=== PATIENT | male | born 1970 | race Caucasian/White ===

== ENCOUNTER 2023-07-25 15:35 | Outpatient (OUT) | payer OTHER, SELFPAY ==
[2023-07-25 16:24] LABS: Prostate Specific Antigen Dx <0.13 ng/mL (<=4.00)
== END 2023-07-25 15:36 | disposition home or self-care (01) ==
LOC: LAB 15:40
PROVIDERS: PCP Internal Medicine
DX: C61 Malignant neoplasm of prostate (principal)
CPT/HCPCS: 36415; 84153

== ENCOUNTER 2024-03-30 15:16 | Outpatient (OUT) | payer OTHER, SELFPAY ==
[2024-03-30 15:40] LABS: Basophils Percent Auto 0.6 % (0.2-2.0); Eosinophils Absolute Auto 0.1 10^3/uL (0.0-0.7); Eosinophils Percent Auto 1.7 % (0.9-7.0); Hematocrit 39.8 % (42.0-54.0); Hemoglobin 13.7 g/dL (14.0-18.0); Immature Granulocytes Abs Auto 0.05 10^3/uL (0.00-0.03); Immature Granulocytes Pct Auto 0.8 % (0.0-0.5); Lymphocytes Absolute Auto 2.3 10^3/uL (1.2-3.8); Lymphocytes Percent Auto 35.1 % (20.5-60.0); Mean Corpuscular HGB Conc 34.4 g/dL (29.9-35.2); Mean Corpuscular Hemoglobin 28.4 pg (25.9-34.0); Mean Corpuscular Volume 82.4 fL (80.0-94.0); Mean Platelet Volume 9.8 fL (9.5-13.5); Monocytes Absolute Auto 0.8 10^3/uL (0.3-0.8); Monocytes Percent Auto 11.8 % (1.7-12.0); Neutrophils Absolute Auto 3.3 10^3/uL (1.4-6.5); Platelet Count 221 10^3/uL (150-450); Red Blood Count 4.83 10^6/uL (4.70-6.10); Red Cell Distribution Width 13.3 % (11.0-15.0); White Blood Count 6.5 10^3/uL (4.0-11.0)
[2024-03-30 17:38] LABS: Alanine Aminotransferase 36 U/L (16-63); Albumin Globulin Ratio 1.5; Alkaline Phosphatase 63 U/L (46-116); Anion Gap 14.9; Aspartate Amino Transferase 19 U/L (15-37); BUN Creatinine Ratio 10.8; Bilirubin Total 0.7 mg/dL (0.2-1.0); Calcium 8.7 mg/dL (8.5-10.1); Carbon Dioxide 25.1 mmol/L (21.0-32.0); Chloride 103 mmol/L (98-107); Chol HDL Ratio 4.4; Cholesterol 160 mg/dL (<=200); Estimated GFR (African America >60 (>=60); Estimated GFR (Non-African Ame >60 (>=60); Globulin 2.7 g/dL; Glucose 94 mg/dL (74-106); HDL Cholesterol 36 mg/dL (40-60); Sodium 139 mmol/L (136-145); Total Protein 6.7 g/dL (6.4-8.2); Triglycerides 92 mg/dL (<=150); VLDL CHOLESTEROL 18.4 mg/dL
== END 2024-03-30 15:17 | disposition home or self-care (01) ==
LOC: LAB 15:17
PROVIDERS: PCP Internal Medicine; Visit Provider Internal Medicine
DX: Z00.00 Encounter for general adult medical examination without abnormal findings (principal)
CPT/HCPCS: 36415; 80053; 80061; 85025

== ENCOUNTER 2024-04-06 07:01 | Outpatient (OUT) | payer OTHER, SELFPAY ==
--- OUTSIDE RECORDS SUMMARY | 2024-04-06 07:06 | XMS_ITS | CCD ---
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 Role Phone Cb Guerrero Unavailable JOSE, DR CORTÉS Admitting Unavailable BALL, DR CORTÉS Primary Care Unavailable BALL, DR CORTÉS Consulting Unavailable BALL, DR CORTÉS Attending Unavailable BLACK, DR VIOLETA Santos Attending Unavailable BALL, DR CORTÉS Primary Care Unavailable BLACK, DR VIOLETA Santos Admitting Unavailable BLACK, DR VIOLETA Santos Consulting Unavailable BLACK, DR VIOLETA Santos Consulting Unavailable BLACK, DR VIOLETA Santos Attending Unavailable BALL, DR CORTÉS Primary Care Unavailable BLACK, DR VIOLETA Santos Admitting Unavailable Unavailable Primary Care Provider UnavailBLANCA Maloney Attending Unavailable APLING, KATIE Ordoñez Attending Unavailable APLING, KATIE Ordoñez Referring Unavailable APLING, KATIE Ordoñez Attending Unavailable JAIME BURDICK Attending Unavailable APLING, KATIE Ordoñez Referring Unavailable LANCE GALICIA Attending Unavailable CB GUERRERO Primary Care Physician Violeta Loya Attending Unavailable Medications Current Medications Medication Drug Class(es) Dates Sig (Normalized) Sig (Original) ALPRAZolam 0.25 mg oral tablet (8 sources) Benzodiazepine Start: 03-24-2023 take 1 tablet by mouth every eight hours as needed for anxiety ALPRAZolam (Xanax) 0.25 MG tablet Take 0.25 mg by mouth every 8 (eight) hours if needed for anxiety 0 08/16/2023 Active take 1 tablet by jaquelin th every twelve hours ALPRAZolam 0.25 MG 1 tablet Orally Twice a day Active amLODIPine 5 mg oral tablet (3 sources) Dihydropyridine Calcium Channel Debora Start: 11-19-2023 take 1 tablet by mouth once daily amLODIPine (Norvasc) 5 MG tablet TAKE 1 TABLET BY MOUTH EVERY DAY FOR 30 DAYS 0 11/19/2023 Active Start: 10-23-2023 take 1 tablet by jaquelin th every twenty-four hours amLODIPine Besylate 5 MG 1 tablet Orally Once a day for 30 days Sep, Active cyclobenzaprine hydrochloride 5 mg oral tablet (1 source) Muscle Relaxant Start: 03-05-2024 take 1 tablet by mouth at bedtime cyclobenzaprine 5 mg Tab 5 mg = 1 tab(s), Oral, Bedtime, # 10 tab(s), Refills(s) 0, Pharmacy: [facility]/pharmacy #[id number], 172, cm, 03/05/24 9:18:00 EDT, Height/Length Dosing, 104.5, kg, 03/05/24 9:18:00 EDT, Weight Dosing Start Date: 03/05/24 Status: Ordered Misc Medication (1 source) Start: 07-14-2019 Misc Medication See Instructions Start Date: 07/14/19 Status: Ordered phentermine hydrochloride 37.5 mg oral tablet (4 sources) Sympathomimetic Amine Anorectic Start: 10-23-2023 take 1 tablet by mouth once daily before breakfast Adipex-P 37.5 MG 1 tablet before breakfast Orally Once a day for 30 days Rx #2 Sep, Active Start: 09-25-2023 take 1 tablet by jaquelin once daily before breakfast Adipex-P 37.5 MG 1 tablet before breakfast Orally Once a day for 30 days Rx #2 Aug, Active Start: 08-26-2023 take 1 tablet by jaquelin th once daily before breakfast Adipex-P 37.5 MG 1 tablet before breakfast Orally Once a day for 30 days Jul, Active Start: 04-16-2023 take 1 tablet by jaquelin once daily before breakfast Adipex-P 37.5 MG 1 tablet before breakfast Orally Once a day for 30 days Mar, Active predniSONE 20 mg oral tablet (1 source) Start: 03-05-2024 End: 03-10-2024 take 2 tablets by mouth once daily predniSONE 20 mg Tab 40 mg = 2 tab(s), Oral, Daily, X 5 day(s), # 10 tab(s), Refills(s) 0, Pharmacy: [facility]/pharmacy #[id number], 172, cm, 03/05/24 9:18:00 EDT, Height/Length Dosing, 104.5, kg, 03/05/24 9:18:00 EDT, Weight Dosing Start Date: 03/05/24 Stop Date: 03/10/24 Status: Ordered rosuvastatin calcium 20 mg oral tablet (9 sources) HMG-CoA Reductase Inhibitor Start: 03-05-2024 rosuvastatin 20 mg Tab Refills(s) 0 Start Date: 03/05/24 Status: Ordered rosuvastatin (Cr estor) 5 MG tablet Rosuvastatin Calcium 0 Active take 1 tablet by jaquelin th once daily in the evening Rosuvastatin Calcium 20 MG TAKE 1 TABLET BY MOUTH EVERY DAY IN THE EVENING Active sildenafil 100 mg oral tablet (6 sources) Phosphodiesterase 5 Inhibitor Start: 11-20-2022 take 1 tablet by mouth once daily as needed Sildenafil Citrate 100 MG 1 Tablet Orally Once a day, as needed for ED for 30 day(s) Oct, Active Completed/Discontinued Medications Medication Drug Class(es) Dates Sig (Normalized) Sig (Original) citric acid 75 mg/ml / magnesium oxide 21.9 mg/ml / picosulfate sodium 0.0625 mg/ml oral solution (1 source) Calculi Dissolution Agent, Anti-coagulant Start: 02-19-2019 Clenpiq 10-3.5-12 MG-GM -GM/160ML 160ml at 3pm, 160ml at 9pm the day prior to colonoscopy Orally BID for 1 days Jan, Not-Taking Problems Problem Classification Problem Date Documented Date Episodic/Chronic Administrative/social admission (2 sources) Counseling procedure with explicit context; Translations: [Dietary counseling and surveillance] Onset: 03-05-2024 Episodic Allergic reactions (2 sources) Atopic dermatitis; Translations: [Atopic dermatitis, unspecified] 12-11-2023 Chronic Anxiety disorders (8 sources) Generalized anxiety disorder; Translations: [Generalized anxiety disorder] Chronic Cancer of prostate (10 sources) Malignant neoplasm of prostate; Translations: [Malignant tumor of prostate] Onset: 01-11-2023 Chronic Disorders of lipid metabolism (8 sources) Hypercholesterolemia ; Translations: [Pure hypercholesterolemia , unspecified] Chronic Essential hypertension (4 sources) Essential hypertension; Translations: [Essential (primary) hypertension] Chronic Genitourinary symptoms and ill-defined conditions (1 source) Increased frequency of urination 08-20-2019 Episodic Hyperplasia of prostate (1 source) Benign prostatic hypertrophy with outflow obstruction 08-20-2019 Chronic Mycoses (12 sources) Tinea corporis; Translations: [Tinea corporis] Episodic Neoplasms of unspecified nature or uncertain behavior (2 sources) Neoplastic disease; Translations: [Neoplasm of unspecified behavior of bone, soft tissue, and skin] 12-11-2023 Episodic Other aftercare (5 sources) Other alf (current) drug therapy Episodic Other and unspecified benign neoplasm (6 sources) History of polyp of colon; Translations: [Personal history of colonic polyps] Episodic Other and unspecified benign neoplasm (10 sources) Benign neoplasm of colon; Translations: [Benign neoplasm of colon, unspecified] Episodic Other and unspecified benign neoplasm (1 source) Benign neoplasm of descending colon; Translations: [Adenomatous polyp of descending colon] Episodic Other and unspecified benign neoplasm (1 source) Benign neoplasm of colon, unspecified; Translations: [Adenoma of colon] Episodic Other and unspecified benign neoplasm (2 sources) Melanocytic nevus of trunk; Translations: [Melanocytic nevi of trunk] 12-11-2023 Episodic Other and unspecified benign neoplasm (2 sources) Skin lesion; Translations: [Hemangioma of skin and subcutaneous tissue] 12-11-2023 Episodic Other circulatory disease (1 source) Elevated blood-pressure reading, without diagnosis of hypertension Episodic Other male genital disorders (6 sources) Erectile dysfunction co-occurrent and due to arterial insufficiency; Translations: [Erectile dysfunction due to arterial insufficiency] Chronic Other male genital disorders (1 source) Erectile dysfunction due to arterial insufficiency Chronic Other nutritional; endocrine; and metabolic disorders (13 sources) Body mass index 30+ - obesity; Translations: [Body mass index (BMI) 33.0-33.9, adult] Chronic Other nutritional; endocrine; and metabolic disorders (9 sources) Obesity caused by energy imbalance; Translations: [Other obesity due to excess calories] Onset: 09-06-2016 Chronic Other nutritional; endocrine; and metabolic disorders (5 sources) Severe obesity; Translations: [Morbid (severe) obesity due to excess calories] Chronic Other nutritional; endocrine; and metabolic disorders (5 sources) Other obesity due to excess calories Chronic Other nutritional; endocrine; and metabolic disorders (2 sources) Body mass index (BMI) 33.0-33.9, adult Chronic Other nutritional; endocrine; and metabolic disorders (3 sources) Body mass index (BMI) 34.0-34.9, adult Chronic Other nutritional; endocrine; and metabolic disorders (1 source) Obese class II; Translations: [Body mass index (BMI) 35.0-35.9, adult] Onset: 03-05-2024 Chronic Other nutritional; endocrine; and metabolic disorders (1 source) Obesity; Translations: [Other obesity due to excess calories] Onset: 03-05-2024 Chronic Other screening for suspected conditions (not mental disorders or infectious disease) (1 source) Raised prostate specific antigen 08-20-2019 Episodic Other skin disorders (1 source) Dyshidrosis [pompholyx] Episodic Other skin disorders (2 sources) Epidermoid cyst; Translations: [Epidermal cyst] 12-11-2023 Episodic Other skin disorders (2 sources) Sebaceous hyperplasia; Translations: [Other specified follicular disorders] 12-11-2023 Episodic Residual codes; unclassified (6 sources) History of radical prostatectomy; Translations: [Acquired absence of other genital organ(s)] Episodic Residual codes; unclassified (1 source) Family history of prostate cancer 08-20-2019 Episodic Sprains and strains (1 source) Neck sprain; Translations: [Sprain of joints and ligaments of unspecified parts of neck, initial encounter] Onset: 03-05-2024 Episodic Results Test Name Value Interpretation Reference Range Facility Ambulatory Visit Summaryon 0 03-05-2024 Ambulatory Visit Summary VISHAL MACHADO :1970 Visit Date:03/05/2024 Ambulatory Visit Instructions Your Diagnosis Sprain of neck BMI 35.0-35.9,adult Class 1 obesity due to excess calories in adult Diabetic nutritional counseling completed Exercise counseling Your Care Team Attending Physician - Shalini OSORIO, Violeta Horne Primary Care Physician - CB GUERRERO DO This Is Your Medications List Non-Formulary Medication (Misc Medication) cyclobenzaprine (cyclobenzaprine 5 mg Tab) predniSONE (predniSONE 20 mg Tab) rosuvastatin (rosuvastatin 20 mg Tab) Procedures Performed Transrectal biopsy of prostate using ultrasound (US) guidance (08/05/2019), Arthroscopy of knee with lateral meniscus repair. Discharge Vitals Temperature (Temporal Artery) 36.5 ?C Heart Rate (Peripheral) 93 Blood Pressure 144/102 Height 172 cm Height 68 in Weight 104.5 kg Weight 229.9 lb BMI 35.32 Medications What How Much When Why Instructions New cyclobenzaprine (cyclobenzaprine 5 mg Tab) 1 Tablets By Mouth At bedtime Sprain of neck Pickup at [facility]/pharmacy #[id number] New predniSONE (predniSONE 20 mg Tab) 2 Tablets By Mouth Every day Sprain of neck Duration: 5 Days Pickup at [facility]/pharmacy #[id number] Unchanged Non-Formulary Medication (Misc Medication) See instructions Unchanged rosuvastatin (rosuvastatin 20 mg Tab) Pharmacy Information [facility]/pharmacy #[id number]: [address] [place], [place] [id number] [phone] Allergies No Known Allergies Problems Ongoing - Any problem that you are currently receiving treatment for. BPH with urinary obstruction Elevated PSA Family history of prostate cancer Prostate cancer Urine frequency Historical - Any problem that you are no longer receiving treatment for. Anxiety Patient Survey You may receive a survey via text or e-mail asking about your office visit. Please share your experience with us by completing your survey. We appreciate your feedback and thank you for choosing us for your care. [facility] Family Medicine Office/Clini c Noteon 03-05-2024 Family Medicine Office/Clinic Note Chief Complaint neck pain HPI Staff 53 year old male presents with neck pain since saturday. Patient was playing golf and felt pain on right shoulder after a swing. Pain is radiating to neck. Limited range of motion. History of Present Illness Reviewed and agree with above documented HPI by medical supervisor. Patient is a 53-year-old male who presents today with complaint of neck pain that has been going on since Saturday. Patient states that he was golfing and he felt sudden pain in his right shoulder after swinging the golf club. He states that the pain radiates to his neck. He also states he has very limited range of motion. He denies any numbness or tingling in his arm. He said that this has happened once before. He states he has been taking ibuprofen for the pain and that last night he took 1 his 's Flexeril for the pain. States that this did help him. 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 Patient has no known allergies. Review of Systems PHQ Score Initial Depression Screen Score: 0 SCORE Physical Exam Vitals & Measurements T: 36.5 ?C(Temporal Artery) HR: 93(Peripheral) BP: 144/102 SpO2: 97% HT: 68 in HT: 172 cm WT: 104.5 kg WT: 229.9 lb BMI: 35.32 General: well-developed, well-nourished, in no acute distress Eyes: Pupils equal, round, and reactive to light. Conjunctivae and sclerae normal, and extraocular movements intact Ears: No deformity or lesion of external ear. Canals and TM appear normal bilaterally. TM?s intact, not inflamed, with normal light reflex. Hearing grossly normal to conversational speech Nose: No deformity, discharge, inflammation, or lesions Mouth: Mucous membranes moist. Normal oropharynx, and posterior pharynx without lesions or exudates. Tongue normal Neck: no adenopathy Lungs: Normal respiratory effort and clear to auscultation Cardio: regular rate and rhythm, no murmur Abdomen: Soft, non-distended, non-tender Musculoskeletal: no deformity or scoliosis noted. Normal range of motion with extremities, limited range of motion with turning of head. No erythema, edema, effusion, or ecchymosis noted Extremity: No clubbing, cyanosis, edema, or deformity, with normal ROM in both upper and lower bilateral extremities Neurologic: Grossly normal denies numbness or tingling to extremities Skin: No rashes, ulcerations, or suspicious lesions Mental Status: Alert and oriented x3. Normal speech and thought content, normal mood and affect Assessment/Plan No imaging needed at this time 1. Sprain of neck (S13.9XXA: Sprain of joints and ligaments of unspecified parts of neck, initial encounter) Patient is advised that this is probably a strain of the neck muscle due to improper golf swing. He is advised to use a heating pad for 20 minutes and then do gentle stretching. He is also advised that he should not take his 's prescription for muscle relaxers. He was provided with his home prescription for muscle relaxers which he can use at bedtime due to the sedation that is caused by Flexeril. He was also advised that he was given a short-term prescription of prednisone to help with the inflammation. He is advised to take this medication in the morning to avoid stomach upset. He was advised to use ibuprofen at least 2 hours after taking prednisone but that he can use ibuprofen during the day and again use the Flexeril at night. He is advised that if he does not show signs of relief or increasing symptoms after 3 to 5 days, he should follow-up with his PCP. Advised that if he develops numbness or tingling to the right arm he should report to ED. Patient understands and is agreeable to treatment plan. Ordered: cyclobenzaprine, 5 mg = 1 tab(s), Oral, Bedtime, # 10 tab(s), Refills(s) 0, Pharmacy: [facility]/pharmacy #[id number], 172, cm, 03/05/24 9:18:00 EDT, Height/Length Dosing, 104.5, kg, 03/05/24 9:18:00 EDT, Weight Dosing predniSONE, 40 mg = 2 tab(s), Oral, Daily, X 5 day(s), # 10 tab(s), Refills(s) 0, Pharmacy: [facility]/pharmacy #[id number], 172, cm, 03/05/24 9:18:00 EDT, Height/Length Dosing, 104.5, kg, 03/05/24 9:18:00 EDT, Weight Dosing 2. BMI 35.0-35.9,adult (Z68.35: Body mass index [BMI] 35.0-35.9, adult) The standard range for ages 18 and older is >=18.5 and < 25 kg/m2. Your BMI today was above this range, this falls in the overweight to obese category and there are medical benefits to weight loss. We can offer counselling, referral, and/or medical support in addressing this problem. Your BMI and weight management will be followed at subsequent visits. 3. Class 1 obesity due to excess calories in adult (E66.09: Other obesity due to excess calories) Same as above Diabetic nutritional counseling completed (Z71.3: Dietary counseling and surveillance) Exercise counseling (Z71.82: Exercise counseling) Portions of this record may have been created with voice recognition artificial intelligence software, specifically [employer], [employer] and or [employer] (more content not included)... [facility] Comment on above: Result Comment: Elec tronically Signed By: Shalini OSORIO, Violeta Horne\.br\Date and Time Signed: 03/05/24 09:47 EDT Patient Educationon 03-05-20 Patient Education Nutrition BMI for Adults What is BMI? Body mass index (BMI) is a number that is calculated from a person's weight and height. BMI can help estimate how much of a person's weight is composed of fat. BMI does not measure body fat directly. Rather, it is an alternative to procedures that directly measure body fat, which can be difficult and expensive. BMI can help identify people who may be at higher risk for certain medical problems. What are BMI measurements used for? BMI is used as a screening tool to identify possible weight problems. It helps determine whether a person is obese, overweight, a healthy weight, or underweight. BMI is useful for: ? Identifying a weight problem that may be related to a medical condition or may increase the risk for medical problems. ? Promoting changes, such as changes in diet and exercise, to help reach a healthy weight. BMI screening can be repeated to see if these changes are working. How is BMI calculated? BMI involves measuring your weight in relation to your height. Both height and weight are measured, and the BMI is calculated from those numbers. This can be done either in [place] or metric measurements. Note that charts and online BMI calculators are available to help you find your BMI quickly and easily without having to do these calculations yourself. To calculate your BMI in [place] measurements: 1. Measure your weight in pounds (lb). 2. Multiply the number of pounds by 703. ? For example, for a person who weighs 180 lb, multiply that number by 703, which equals 126,540. 3. Measure your height in inches. Then multiply that number by itself to get a measurement called inches squared. ? For example, for a person who is 70 inches tall, the inches squared measurement is 70 inches x 70 inches, which equals 4,900 inches squared. 4. Divide the total from step 2 (number of lb x 703) by the total from step 3 (inches squared): 126,540 ? 4,900 = 25.8. This is your BMI. To calculate your BMI in metric measurements: 1. Measure your weight in kilograms (kg). 2. Measure your height in meters (m). Then multiply that number by itself to get a measurement called meters squared. ? For example, for a person who is 1.75 m tall, the meters squared measurement is 1.75 m x 1.75 m, which is equal to 3.1 meters squared. 3. Divide the number of kilograms (your weight) by the meters squared number. In this example: 70 ? 3.1 = 22.6. This is your BMI. What do the results mean? BMI charts are used to identify whether you are underweight, normal weight, overweight, or obese. The following guidelines will be used: ? Underweight: BMI less than 18.5. ? Normal weight: BMI between 18.5 and 24.9. ? Overweight: BMI between 25 and 29.9. ? Obese: BMI of 30 or above. Keep these notes in mind: ? Weight includes both fat and muscle, so someone with a muscular build, such as an athlete, may have a BMI that is higher than 24.9. In cases like these, BMI is not an accurate measure of body fat. ? To determine if excess body fat is the cause of a BMI of 25 or higher, further assessments may need to be done by a health care provider. ? BMI is usually interpreted in the same way for men and women. Where to find more information For more information about BMI, including tools to quickly calculate your BMI, go to these websites: ? Centers for Disease Control and Prevention: www.cdc.gov ? [place] Heart Association: www.heart.org ? National Heart, Lung, and Blood [place]: www.nhlbi.nih.gov Summary ? Body mass index (BMI) is a number that is calculated from a person's weight and height. ? BMI may help estimate how much of a person's weight is composed of fat. BMI can help identify those who may be at higher risk for certain medical problems. ? BMI can be measured using [place] measurements or metric measurements. ? BMI charts are used to identify whether you are underweight, normal weight, overweight, or obese. This information is not intended to replace advice given to you by your health care provider. Make sure you discuss any questions you have with your health care provider. Document Revised: 07/06/2020 Document Reviewed: 05/13/2020 [employer] Patient Education ? 2022 [employer] Orthopedics Cervical Sprain A cervical sprain is also called a neck sprain. It is a stretch or tear in one or more ligaments in the neck. Ligaments are tissues that connect bones to each other. Neck sprains can be mild, bad, or very bad. A very bad sprain in the neck can cause the bones in the neck to be unstable. This can damage the spinal cord. It can also cause serious problems in the brain, spinal cord, and nerves (nervous system). Most neck sprains heal in 4?6 weeks. It can take more or less time depending on: ? What caused the injury. ? The amount of injury. What are the causes? Neck sprains may be caused by trauma, such as: ? An injury from an accident in a vehicle (more content not included)... [facility] Patient Letter FTon 2023 Patient Letter [facility] [place] [address] [place] [address] March 05, 2024 VISHAL MACHADO [address] [place] [address] [place] [address] : 1970 Please excuse VISHAL MACHADO from work . He was being seen at [facility]. May return to work on: 03/05/2024 Restrictions: None Comments: Please excuse due to an acute illness. Provider Signature: Violeta Loya CNP [address] [place] [address] [place] [address] [facility] MR KNEE LEFT WO IV CONTRASTo n 01-31-2024 MR KNEE LEFT WO IV CONTRAST EXAMINATION: MR KNEE LEFT WO IV CONTRAST HISTORY: left internal derangement left medial knee pain for 6 months. No recent injury. TECHNIQUE: Routine non-contrast MRI of the knee, LEFT COMPARISON: Radiographs 12/25/2023. RESULT: MENISCI: Medial Meniscus: Small area of increased signal near the junction of the posterior horn and body, without distinct extension to the articular surface. Differential includes degenerative signal versus subtle nondisplaced tear. Lateral Meniscus: Intact LIGAMENTS: ACL, PCL, MCL, and LCL complex intact. CARTILAGE: Small to moderate areas of full-thickness chondral loss involving the superior patella. No distinct full-thickness chondral loss in the medial or lateral compartments, with small areas of low-grade partial-thickness chondral loss or fissuring. TENDONS: Mild to moderate distal quadriceps tendinosis, without tear. Patellar tendon appears intact. Popliteus appears intact. BONES AND MARROW: No evidence of fracture or bone marrow replacing process. MUSCLES: Muscle bulk and signal intensity are normal. JOINT FLUID AND SYNOVIUM: Small joint effusion. No synovitis. No Dumont's cyst. OTHER: No other significant abnormality. IMPRESSION: Possible medial meniscal tear versus degenerative signal. Osteoarthritis, especially of the patella. ELECTRONICALLY SIGNED BY: Ramez Cabrera MD Normal Not Available No Panel Informationon 12-11 Type of biopsy: tangential Informed consent: discussed and consent obtained Informed consent comment: The risks and benefits of the biopsy were discussed. Risks include but are not limited to bleeding, infection, scarring, pain, and nerve damage. An opportunity to ask questions prior to the procedure was permitted and all questions were answered. Patient was prepped and draped in usual sterile fashion: area cleansed with alcohol. Anesthesia: the lesion was anesthetized in a standard fashion Anesthetic: 1% lidocaine w/ epinephrine 1-100,000 buffered w/ 8.4% NaHCO3 Instrument used: DermaBlade Hemostasis achieved with: electrodesiccation Outcome: patient tolerated procedure well Outcome comment: The specimen was placed in a prelabeled formalin container to be sent for pathology Post-procedure details: sterile dressing applied and wound care instructions given Post-procedure details comment: Emphasized need to contact clinic for any signs of infection, uncontrollable bleeding, or complications. Dressing type: bandage Additional details: Photo taken yes Amount of lidocaine used: 0.5 cc [facility] CBC AUTO DIFFon 03-23-2023 BASO # 0.0 103/ul Normal 0.0-0.1 [facility] Comment on above: Performed By: #### C BC #### [facility] [address] [place] [address] Dr. Carmen Schmidt Basophils/100 WBC (Bld) 0.8 % Normal 0.2-2.0 [facility] Comment on above: Performed By: #### C BC #### [facility] [address] [place] [address] Dr. Carmen Schmidt EO # 0.1 103/ul Normal 0.0-0.7 [facility] Comment on above: Performed By: #### C BC #### [facility] [address] [place] [address] Dr. Carmen Schmidt Eosinophils/100 WBC (Bld) 2.2 % Normal 0.9-7.0 [facility] Comment on above: Performed By: #### C BC #### [facility] [address] [place] [address] Dr. Carmen Schmidt Erythrocyte distribution width (RBC) [Ratio] 13.2 % Normal 11.0-15.0 [facility] Comment on above: Performed By: #### C BC #### [facility] [address] [place] [address] Dr. Carmen Schmidt Hematocrit (Bld) [Volume fraction] 41.0 % Critically low 42.0-54.0 [facility] Comment on above: Performed By: #### C BC #### [facility] [address] [place] [address] Dr. Carmen Schmidt Hemoglobin (Bld) [Mass/Vol] 14.7 g/dL Normal 14.0-18.0 [facility] Comment on above: Performed By: #### C BC #### [facility] [address] [place] [address] Dr. Carmen Schmidt IG # 0.04 10e3/ul Critically high 0.00-0.03 [facility] Comment on above: Performed By: #### C BC #### [facility] [address] [place] [address] Dr. Carmen Schmidt IG % 0.8 % Critically high 0.0-0.[address] [facility] Comment on above: Performed By: #### C BC #### [facility] [address] [place] [address] Dr. Carmen Schmidt LYMPH # 1.9 103/ul Normal 1.2-3.8 [facility] Comment on above: Performed By: #### C BC #### [facility] [address] [place] [address] Dr. Carmen Schmidt Lymphocytes/100 WBC (Bld) 37.0 % Normal 20.5-60.0 [facility] Comment on above: Performed By: #### C BC #### [facility] [address] [place] [address] Dr. Carmen Schmidt MANUAL DIFF REQ NO Normal [facility] Comment on above: Performed By: #### C BC #### [facility] [address] [place] [address] Dr. Carmen Schmidt MCH (RBC) [Entitic mass] 30.4 pg Normal 25.9-34.0 [facility] Comment on above: Performed By: #### C BC #### [facility] [address] [place] [address] Dr. Carmen Schmidt MCHC (RBC) [Mass/Vol] 35.9 g/dL Critically high 29.9-35.2 [facility] Comment on above: Performed By: #### C BC #### [facility] [address] [place] [address] Dr. Carmen Schmidt MCV (RBC) [Entitic vol] 84.9 fL Normal 80.0-94.0 [facility] Comment on above: Performed By: #### C BC #### [facility] [address] [place] [address] Dr. Carmen Schmidt MONO # 0.6 103/ul Normal 0.3-0.8 [facility] Comment on above: Performed By: #### C BC #### [facility] [address] [place] [address] Dr. Carmen Schmidt Monocytes/100 WBC (Bld) 11.9 % Normal 1.7-12.0 [facility] Comment on above: Performed By: #### C BC #### [facility] [address] [place] [address] Dr. Carmen Schmidt NEUT # 2.4 103/ul Normal 1.4-6.5 [facility] Comment on above: Performed By: #### C BC #### [facility] [address] [place] [address] Dr. Carmen Schmidt Neutrophils/100 WBC (Bld) 47.3 % Normal 43.0-75.0 [facility] Comment on above: Performed By: #### C BC #### [facility] [address] [place] [address] Dr. Carmen Schmidt Platelet mean volume (Bld) [Entitic vol] 9.5 fL Normal 9.5-13.5 [facility] Comment on above: Performed By: #### C BC #### [facility] [address] [place] [address] Dr. Carmen Schmidt PLT 223 103/ul Normal 150-450 [facility] Comment on above: Performed By: #### C BC #### [facility] [address] [place] [address] Dr. Carmen Schmidt RBC 4.83 106/ul Normal 4.70-6.10 [facility] Comment on above: Performed By: #### C BC #### [facility] [address] [place] [address] Dr. Carmen Schmidt WBC 5.0 103/ul Normal 4.0-11.0 [facility] Comment on above: Performed By: #### C BC #### [facility] [address] [place] [address] Dr. Carmen Schmidt LIPID PROFILEon 03-23-2023 CHOL-HDL RATIO NORM SEE BELOW Normal [facility] Comment on above: Result Comment: 3.3 - 4.4 LOW RISK 4.4 - 7.1 AVERAGE RISK 7.1 - 11.0 MODERATE RISK >11.0 HIGH RISK Performed By: #### C MP, LIPID #### [facility] [address] [place] [address] Dr. Carmen Schmidt Cholesterol [Mass/Vol] 108 mg/dL Normal <=200 [facility] Comment on above: Performed By: #### C MP, LIPID #### [facility] [address] [place] [address] Dr. Carmen Schmidt Cholesterol in HDL [Mass/Vol] 35 mg/dL Critically low 40-60 [facility] Comment on above: Performed By: #### C MP, LIPID #### [facility] [address] [place] [address] Dr. Carmen Schmidt Cholesterol in LDL [Mass/Vol] 60.4 mg/dL Normal [facility] Comment on above: Performed By: #### C MP, LIPID #### [facility] [address] [place] [address] Dr. Carmen Schmidt Cholesterol.total/ Cholesterol in HDL [Mass ratio] 3.1 {ratio} Normal [facility] Comment on above: Performed By: #### C MP, LIPID #### [facility] [address] [address] [address] Carmen Schmidt HDL NORMAL > or = 60 mg/dl - LO W CARDIOVASCULAR RISK <40 mg/dl - HIGH CARDIOVASCULAR RISK Normal [facility] Comment on above: Performed By: #### C MP, LIPID #### [facility] [address] [address] [address] Carmen Schmidt LDL CALC NORMAL SEE BELOW Normal [facility] Comment on above: Result Comment: <100 mg/dl OPTIMAL 100 - 129 mg/dl NEAR OR ABOVE OPTIMAL 130 - 159 mg/dl BORDERLINE HIGH 160 - 189 mg/dl HIGH >190 mg/dl VERY HIGH Performed By: #### C MP, LIPID #### [facility] [address] [address] [address] Carmen Schmidt Triglyceride [Mass/Vol] 63 mg/dL Normal <=150 [facility] Comment on above: Performed By: #### C MP, LIPID #### [facility] [address] [address] [address] Carmen Schmidt VLDL CALC 12.6 mg/dL Normal [facility] Comment on above: Performed By: #### C MP, LIPID #### [facility] [address] [address] [address] Carmen Schmidt PROF 14(COMP METB)on 023 Albumin [Mass/Vol] 4.3 g/dL Normal 3.4-5.0 [facility] Comment on above: Performed By: #### C MP, LIPID #### [facility] [address] [address] [address] Carmen Schmidt Albumin/Globulin [Mass ratio] 1.5 {ratio} Normal [facility] Comment on above: Performed By: #### C MP, LIPID #### [facility] [address] [address] [address] Carmen Schmidt ALP [Catalytic activity/Vol] 69 U/L Normal 46-116 [facility] Comment on above: Performed By: #### C MP, LIPID #### [facility] [address] [address] [address] Carmen Schmidt ALT [Catalytic activity/Vol] 31 U/L Normal 16-63 [facility] Comment on above: Performed By: #### C MP, LIPID #### [facility] [address] [address] [address] Carmen Schmidt Anion gap [Moles/Vol] 15.7 mmol/L Normal [facility] Comment on above: Performed By: #### C MP, LIPID #### [facility] [address] [address] [address] Carmen Schmidt AST [Catalytic activity/Vol] 17 U/L Normal 15-37 [facility] Comment on above: Performed By: #### C MP, LIPID #### [facility] [address] [place] [address] Dr. Carmen Schmidt Bilirubin [Mass/Vol] 0.6 mg/dL Normal 0.2-1.0 [facility] Comment on above: Performed By: #### C MP, LIPID #### [facility] [address] [address] [address] Carmen Schmidt Calcium [Mass/Vol] 8.9 mg/dL Normal 8.5-10.1 [facility] Comment on above: Performed By: #### C MP, LIPID #### [facility] [address] [address] [address] Carmen Schmidt Chloride [Moles/Vol] 106 mmol/L Normal 98-107 [facility] Comment on above: Performed By: #### C MP, LIPID #### [facility] [address] [address] [address] Carmen Schmidt CO2 [Moles/Vol] 26.2 mmol/L Normal 21.0-32.0 [facility] Comment on above: Performed By: #### C MP, LIPID #### [facility] [address] [address] [address] Carmen Schmidt Creatinine [Mass/Vol] 0.70 mg/dL Normal 0.70-1.30 [facility] Comment on above: Performed By: #### C MP, LIPID #### [facility] [address] [address] [address] Carmen Schmidt EGFR-AF SPANISH >60 Normal >=60 [facility] Comment on above: Performed By: #### C MP, LIPID #### [facility] [address] [address] [address] Carmen Schmidt EGFR-NON AF SPANISH >60 Normal >=60 [facility] Comment on above: Performed By: #### C MP, LIPID #### [facility] [address] [address] [address] Carmen Schmidt Globulin (S) [Mass/Vol] 2.9 g/dL Normal [facility] Comment on above: Performed By: #### C MP, LIPID #### [facility] [address] [address] [address] Carmen Schmidt Glucose [Mass/Vol] 103 mg/dL Normal 74-106 [facility] Comment on above: Performed By: #### C MP, LIPID #### [facility] [address] [address] [address] Carmen Schmidt Potassium [Moles/Vol] 4.9 mmol/L Normal 3.5-5.1 [facility] Comment on above: Performed By: #### C MP, LIPID #### [facility] [address] [address] [address] Carmen Schmidt Protein [Mass/Vol] 7.2 g/dL Normal 6.4-8.2 [facility] Comment on above: Performed By: #### C MP, LIPID #### [facility] [address] [address] [address] Carmen Schmidt Sodium [Moles/Vol] 143 mmol/L Normal 136-145 [facility] Comment on above: Performed By: #### C MP, LIPID #### [facility] [address] [address] [address] Carmen Schmidt Urea nitrogen [Mass/Vol] 9.0 mg/dL Normal 7.0-18.0 [facility] Comment on above: Performed By: #### C MP, LIPID #### [facility] [address] [place], [place] [address] Dr. Carmen Schmidt Urea nitrogen/Creatinin e [Mass ratio] 12.9 mg/mg Normal [facility] Comment on above: Performed By: #### C MP, LIPID #### [facility] [address] [place], [place] [address] Dr. Carmen Singh 05-03-2022 L --- Specimen: [id number] Received: 05/03/22 Status: ANA M Claire Num: [id number] Spec Type: Surgical Subm Dr: Francisco Coleman MD Tissues: A Colon - Polyp (ASCENDING POLYP) B Colon Biopsy (SIGMOID) C Colon - Polyp (SIGMOID POLYP) Procedures: HE Stain/6, Gross/Micro L4/3 Patient Age/Sex Location Account Attending Physician Vishal Machado/Martha [id number] Francisco Coleman MD SPEC NUM: [id number] RECD: 05/03/22 STATUS: ANA M HOLDERTara NUM: [id number] SUDHAKAR: 05/03/22- [facility] DR: Francisco Coleman MD ENTERED: 05/03/22 [facility] DR: SPEC TYPE: Surgical DEPT: S ORDERED: HE Stain/6, Gross/Micro L4/3 ORDERED: HE Stain/6, Gross/Micro L4/3 Pathological Diagnosis A. Ascending colon polyp, polypectomy: - Fragments of tubular adenoma. B. Sigmoid colon, patchy light is, biopsy: - Mild active colitis with lymphoid aggregate. C. Sigmoid colon polyp, polypectomy: Tubular adenoma. Clinical Information History of polyps Gross Description A. Received in formalin labeled with the patient's name, number and polyp ascending are multiple fragments of soft tissue and fecal material measuring 2.3 x 0.6 x 0.3 cm in aggregate. Entirely submitted in one cassette labeled A1. (LG/) B. Received in formalin labeled with the patient's name, number and patchy colitis sigmoid are two fragments of soft tissue 0.4 cm each. Entirely submitted in one cassette labeled B1. (LG/) C. Received in formalin labeled with the patient's name, number and polyp sigmoid are two Specimen: [id number] Received: 05/03/22 Status: ANA M Holdertara Num: [id number] Spec Type: Surgical Subm Dr: Francisco Coleman MD Tissues: A Colon - Polyp (ASCENDING POLYP) B Colon Biopsy (SIGMOID) C Colon - Polyp (SIGMOID POLYP) Procedures: HE Stain/6, Gross/Micro L4/3 Patient: Vishal Machado Umu [id number] (Continued) Specimen: [id number] Received: 05/03/22 (Continued) Gross Description (Continued) Signed (signature on file) Lois Chong MD 05/04/22 1534 Specimen: [id number] Received: 05/03/22 Status: ANA M Rangel Num: [id number] Spec Type: Surgical Subm Dr: Francisco Coleman MD Tissues: A Colon - Polyp (ASCENDING POLYP) B Colon Biopsy (SIGMOID) C Colon - Polyp (SIGMOID POLYP) Procedures: HE Stain/6, Gross/Micro L4/3 Patient: Vishal Machado [id number] (Continued) Specimen: [id number] Received: 05/03/22 (Continued) Gross Description (Continued) fragments of soft tissue measuring 0.5 and 0.9 cm. Entirely submitted in one cassette labeled C1. (LG/) Microscopic Description A. Two glass slides with H E stained material have been examined. The microscopic findings support the above pathologic diagnosis. B. Two glass slides with H E stained material have been examined. The microscopic findings support the above pathologic diagnosis. C. Two glass slides with H E stained material have been examined. The microscopic findings support the above pathologic diagnosis. CPT Codes 72044?3 Specimen: [id number] Received: 05/03/22 Status: ANA M Rangel Num: [id number] Spec Type: Surgical Subm Dr: Francisco Coleman MD Tissues: A Colon - Polyp (ASCENDING POLYP) B Colon Biopsy (SIGMOID) C Colon - Polyp (SIGMOID POLYP) Procedures: HE Stain/6, Gross/Micro L4/3 Patient: Vishal Machado Umu [id number] (Continued) Signed (signature on file) Lois Chong MD 05/04/22 1534 [place] COVID-19 Antigenon 2 COVID-19 Antigen Healthcare Worker?: N Reference Range: Negative Negative results, from patients with symptom onset beyond five days, should be treated as presumptive and confirmation with a molecular assay, if necessary, for patient management, may be performed. Negative results do not rule out COVID-19 and should not be used as the sole basis for treatment or patient management decisions, including infection control decisions. Negative results should be considered in the context of a patient's recent exposures, history and the presence of clinical signs and symptoms consistent with COVID-19. The Minal SARS Antigen CINDA does not differentiate between SARS-CoV and SARS-CoV-2. This test was developed and its performance characteristic determined by [facility] and validated at [facility]. This test has not been FDA cleared or approved. This test has been authorized by FDA under an Emergency Use Authorization (EUA). This test has been validated in accordance with the FDA's Guidance Document (Policy for Diagnostics Testing in Laboratories Certified to Perform High Complexity Testing under CLIA prior to Emergency Use Authorization for Coronavirus Disease-2019 during the Public Health Emergency) issued on January 28, 2020. This test is only authorized for the duration of time the declaration that circumstances exist justifying the authorization of the emergency use of in vitro diagnostic tests for detection of SARS-CoV-2 virus and/or diagnosis of COVID-19 infection under section 564(b)(1) of the Act, 21 U.S.C. 360bbb-3(b)(1), unless the authorization is terminated or revoked sooner. SARS-CoV+SARS-CoV-2 (COVID-19) Ag [Presence] in Respiratory specimen by Rapid immunoassay Negative for SARS Antigen by CINDA PERFORMED BY: [place] [address] PATHOLOGIST DISHTANK OPERATOR LAKHWINDER REYES M.D. [place] Comment on above: Performed By: #### S RADHA COVID-19 MINAL #### [facility] [address] [place] [address] Minal Ag Negativeon 05-01-20 Minal Ag Negative Negative Normal Negative [facility] Comment on above: Result Comment: This is a duplicate Minal SARS Antigen (CINDA) result to be used for statistical tracking purpose only. PERFORMED BY: [place] [address] PATHOLOGIST DISHTANK OPERATOR LAKHWINDER REYES M.D. Performed By: #### S RADHA COVID-19 MINAL #### [facility] [address] [place] [address] Vital Signs Date Time Vital Sign Value Performing Clinician Facility 03-05-2024 09:15-0400 Blood Pressure Location [facility] 03-05-2024 09:15-0400 Body temperature 97.7 [degF] [facility] 03-05-2024 09:15-0400 Diastolic blood pressure 102 mm[Hg] [facility] 03-05-2024 09:15-0400 Heart rate 93 /min Violeta Lyoa [facility] [place] [facility] 03-05-2024 09:15-0400 SaO2% (BldA) [Mass fraction] 97 % [facility] 03-05-2024 09:15-0400 Systolic blood pressure 144 mm[Hg] [facility] 12-02-2023 14:30-0500 Body height 172.72 cm Cb Ball Other [facility] [employer] Other 12-02-2023 14:30-0500 Body mass index (BMI) [Ratio] 34.15 kg/m2 Cb [facility] Other [facility] [employer] Other 12-02-2023 14:30-0500 Body weight 101.88 kg Cb Ball Other [facility] [employer] Other 12-02-2023 14:30-0500 Diastolic blood pressure 78 mm[Hg] Cb Ball Other [employer] Other 12-02-2023 14:30-0500 Respiratory rate 12 /min Cb Ball Other [employer] Other 12-02-2023 14:30-0500 Systolic blood pressure 136 mm[Hg] Cb Ball Other [employer] Other 10-23-2023 15:00-0500 Body height 172.72 cm Cb Ball Other [employer] Other 10-23-2023 15:00-0500 Body mass index (BMI) [Ratio] 34.88 kg/m2 Cb Ball Other [employer] Other 10-23-2023 15:00-0500 Body weight 104.06 kg Cb Ball Other [employer] Other 10-23-2023 15:00-0500 Diastolic blood pressure 92 mm[Hg] Cb Ball Other [employer] Other 10-23-2023 15:00-0500 Respiratory rate 12 /min Cb Ball Other [employer] Other 10-23-2023 15:00-0500 Systolic blood pressure 152 mm[Hg] Cb Ball Other [employer] Other 09-25-2023 15:30-0500 Body height 172.72 cm Cb Ball Other [employer] Other 09-25-2023 15:30-0500 Body mass index (BMI) [Ratio] 34.3 kg/m2 Cb Ball Other [employer] Other 09-25-2023 15:30-0500 Body weight 102.33 kg Cb Ball Other [employer] Other 09-25-2023 15:30-0500 Diastolic blood pressure 91 mm[Hg] Cb Ball Other [employer] Other 09-25-2023 15:30-0500 Respiratory rate 12 /min Cb Ball Other [employer] Other 09-25-2023 15:30-0500 Systolic blood pressure 142 mm[Hg] Cb Ball Other [employer] Other 08-26-2023 14:30-0400 Body height 172.72 cm Cb Ball Other [employer] Other 08-26-2023 14:30-0400 Body mass index (BMI) [Ratio] 35.55 kg/m2 Cb Ball Other [employer] Other 08-26-2023 14:30-0400 Body weight 106.05 kg Cb Ball Other [employer] Other 08-26-2023 14:30-0400 Diastolic blood pressure 86 mm[Hg] Cb Ball Other [employer] Other 08-26-2023 14:30-0400 Respiratory rate 12 /min Cb Ball Other [employer] Other 08-26-2023 14:30-0400 Systolic blood pressure 138 mm[Hg] Cb Ball Other [employer] Other 04-16-2023 14:15-0400 Body height 172.72 cm Cb Ball Other [employer] Other 04-16-2023 14:15-0400 Body mass index (BMI) [Ratio] 33.63 kg/m2 Cb Ball Other [employer] Other 04-16-2023 14:15-0400 Body weight 100.34 kg Cb Ball Other [employer] Other 04-16-2023 14:15-0400 Diastolic blood pressure 82 mm[Hg] Cb Ball Other [employer] Other 04-16-2023 14:15-0400 Respiratory rate 12 /min Cb Ball Other [employer] Other 04-16-2023 14:15-0400 Systolic blood pressure 132 mm[Hg] Cb Ball Other [employer] Other 11-20-2022 15:00-0500 Body height 172.72 cm Cb Ball Other [employer] Other 11-20-2022 15:00-0500 Body mass index (BMI) [Ratio] 37.43 kg/m2 Cb Ball Other [employer] Other 11-20-2022 15:00-0500 Body weight 111.68 kg Cb Ball Other [employer] Other 11-20-2022 15:00-0500 Diastolic blood pressure 82 mm[Hg] Cb Ball Other [employer] Other 11-20-2022 15:00-0500 Respiratory rate 12 /min Cb Ball Other [employer] Other 11-20-2022 15:00-0500 Systolic blood pressure 132 mm[Hg] Cb Ball Other [employer] Other Encounters Encounter Date Encounter Type Care Provider Facility Start: 03-05-2024 End: 03-06-2024 ambulatory Violeta Loya Facility:[facility] Start: 03-05-2024 End: 03-05-2024 Patient encounter procedure Violeta Loya [facility] Start: 02-11-2024 End: 02-11-2024 ambulatory LANCE GALICIA Not Available Start: 01-31-2024 End: 02-01-2024 ambulatory KATIE B APLING Not Available Start: 01-29-2024 End: 01-29-2024 ambulatory JAIME BURDICK Not Available Start: 01-22-2024 End: 01-22-2024 ambulatory KATIE B APLING Not Available Start: 12-25-2023 End: 12-26-2023 ambulatory KATIE B APLING Not Available Start: 12-11-2023 End: 12-11-2023 ambulatory BLANCA A FELTER Not Available Start: 12-11-2023 End: 12-11-2023 Office outpatient visit 15 minutes Blancaniko Mijareser CONSTRUCTION FRAMER-COMPUTED TOMOGRAPHY TECHNICIAN Work Phone: [facility] Comment on above: Atopic dermatitis, u nspecified type; Epidermal inclusion cyst; Neoplasm of unspecified behavior of bone, soft tissue, and skin; Sebaceous hyperplasia of face; Melanocytic nevus of trunk; Angioma of skin Start: 12-11-2023 [employer] Blanca diaz CONSTRUCTION FRAMER-COMPUTED TOMOGRAPHY TECHNICIAN Work Phone: [facility] Start: 12-11-2023 BamJack Erwino [employer] Blanca diaz CONSTRUCTION FRAMER-COMPUTED TOMOGRAPHY TECHNICIAN Work Phone: [facility] Start: 12-02-2023 End: 12-02-2023 ambulatory Cb Guerrero Other [employer] Other Start: 12-02-2023 Office outpatient vi sit 15 minutes Cb Guerrero [facility] Start: 10-23-2023 End: 10-23-2023 ambulatory Cb Guerrero Other [employer] Other Start: 10-23-2023 Office outpatient vi sit 15 minutes Cb Guerrero [facility] Start: 09-25-2023 End: 09-25-2023 ambulatory Cb Guerrero Other [employer] Other Start: 09-25-2023 Office outpatient vi sit 15 minutes Cb Guerrero [facility] Start: 08-26-2023 End: 08-26-2023 ambulatory Cb Guerrero Other [employer] Other Start: 08-26-2023 Office outpatient vi sit 15 minutes Cb Guerrero [facility] Start: 04-16-2023 End: 04-16-2023 ambulatory Cb Guerrero Other [employer] Other Start: 04-16-2023 Office outpatient vi sit 15 minutes Cb Guerrero [facility] Start: 03-25-2023 Encounter for genera l adult medical examination without abnormal findings DR CB GUERRERO [facility] Start: 03-23-2023 End: 03-24-[address] CB GUERRERO Facility:[facility]1 Start: 03-23-2023 End: 03-24-2023 Encounter for general adult medical examination without abnormal findings DR CB GUERRERO Facility:[facility] Start: 01-11-2023 End: 01-12-[address] VIOLETA BLACK Facility:[facility] Start: 11-20-2022 End: 11-20-2022 ambulatory Cb Guerrero Other [employer] Other Start: 11-20-2022 Office outpatient vi sit 15 minutes Cb Guerrero [facility] Start: 07-13-2022 End: 07-14-[address] VIOLETA BLACK Facility:[facility]1 Procedures Date Procedure Procedure Detail Performing Clinician Start: 12-11-2023 SKIN / NAIL BIOPSY Christie Sánchez CONSTRUCTION FRAMER-COMPUTED TOMOGRAPHY TECHNICIAN Work Phone: Start: 01-11-[address] KELLEN GUERRERO Comment on above: Performed By: #### P SAD #### [facility] [address] [place] [address] Dr. Carmen Schmidt Start: 07-13-[address] KELLEN GUERRERO Comment on above: Performed By: #### P SAD #### [facility] [address] [place] [address] Dr. Carmen Schmidt Start: 08-05-2019 Transrectal biopsy o f prostate using ultrasound guidance Violeta Loya Arthroscopy of knee with lateral meniscus repair Violeta Loya Comment on above: Right Plan of Treatment Date Care Activity Detail Author Start: 12-10-2024 End: 12-10-2024 Patient encounter procedure 12/10/2024 3:35 PM EST Office Visit [facility] [address] [place] [address] Blanca Sánchez CONSTRUCTION FRAMER-COMPUTED TOMOGRAPHY TECHNICIAN [address] [place] [address] [facility] Start: 12-11-2023 End: 12-11-2023 Patient encounter procedure 12/11/2023 3:40 PM EST Office Visit [facility] [address] [place] [id number] Blanca Sánchez, CONSTRUCTION FRAMER-COMPUTED TOMOGRAPHY TECHNICIAN [address] [place] [address] Arrived [facility] Comment on above: Arrived Start: 06-28-2023 Influenza vaccination Influenza Vaccine (#1) [facility] Start: 1970 Screening for malignant neoplasm of colon [facility] Dermatopathology exam Dermatopat hology exam Pathology and Cytology Timed Neoplasm of unspecified behavior of bone, soft tissue, and skin Release Upon Ordering for 1 Occurrences starting 12/11/2023 [facility] Work Phone: Comment on above: Release Upon Ordering for 1 Occurrences starting 12/11/2023 Immunizations Immunization Date Immunization Notes [facility]23 zoster vaccine recombinant Cb Guerrero Other [facility] 09-11-2022 zoster vaccine recombinant Cb Guerrero Other [facility] 09-11-2022 zoster vaccine, live Benjami janene Guerrero Other [facility] [employer] Other 07-12-2022 COVID-19 Vaccine Pfi zer - Documentation Purposes Only Cb Guerrero Other [facility] [employer] Other 07-12-2022 influenza virus vaccine, split virus (incl. purified surface antigen) Cb Guerrero Other [facility] [employer] Other 10-09-2021 COVID-19 Vaccine Pfi zer - Documentation Purposes Only Cb Guerrero Other [facility] 08-02-2021 influenza virus vaccine, split virus (incl. purified surface antigen) Cb Guerrero Other [facility] [employer] Other 02-07-2021 COVID-19 Vaccine Pfi zer - Documentation Purposes Only Cb Guerrero Other [facility] 01-16-2021 COVID-19 Vaccine Pfi zer - Documentation Purposes Only Cb Guerrero Other [facility] 09-13-2020 influenza virus vaccine, split virus (incl. purified surface antigen) Cb Guerrero Other [employer] Other 09-13-2020 influenza virus vaccine, unspecified formulation Blanca Sánchez CONSTRUCTION FRAMER-COMPUTED TOMOGRAPHY TECHNICIAN Work Phone: [facility] Payers Date Payer Category Payer Managed Care HMO (unspecified) AET[employer] AETNA [id number] 2023-Present [address] [place] [address] HMO [id number] 2023 Private Health Insurance [id number] 1970 Unknown [id number] .59 1970 Unknown [id number] .593 1968 Unknown [id number] [id number] .59 1968 Unknown [id number] [id number] .1258 1968 Unknown [id number] [id number] .1258 1968 Unknown [id number] [id number] .125 1968 Unknown [id number] [id number] .1258 1968 Unknown [id number] [id number] .1259 1968 Unknown [id number] [id number] .1258 1968 Unknown [id number] [id number] .1259 1970 Unknown [id number] [id number] .727 1961 Private Health Insurance [id number] Private Health Insurance [id number] Social History Date Type Detail Facility Start: 12-11-2023 Sex Assigned At [facility] Start: 11-18-2023 End: 03-05-2024 Tobacco smoking status NHIS Never smoked tobacco [facility] Start: 1970 Sex Assigned At Male [facility] Start: 03-23-2023 Gender identity Identifies as male gender (finding) [facility] Start: 03-23-2023 Sexual orientation Heterosexual (finding) [facility] Start: 12-11-2023 History of Social function [facility] Tobacco smoking status Never [facility] Functional Status Date Assessment Result Facility 03-05-2024 Functional Status N/A [facility] Clinical Notes 11-20-2022 to 03-05-2024 Blanca Sánchez, CONSTRUCTION FRAMER-COMPUTED TOMOGRAPHY TECHNICIAN - 12/11/2023 3:40 PM EST Note Date & Type Note Facility 03-05-2024 Hospital Discharge instructions Patient Education 03/05/2024 09:47:27 BMI for Adults BMI for Adults What is BMI? Body mass index (BMI) is a number that is calculated from a person's weight and height. BMI can help estimate how much of a person's weight is composed of fat. BMI does not measure body fat directly. Rather, it is an alternative to procedures that directly measure body fat, which can be difficult and expensive. BMI can help identify people who may be at higher risk for certain medical problems. What are BMI measurements used for? BMI is used as a screening tool to identify possible weight problems. It helps determine whether a person is obese, overweight, a healthy weight, or underweight. BMI is useful for: Identifying a weight problem that may be related to a medical condition or may increase the risk for medical problems. Promoting changes, such as changes in diet and exercise, to help reach a healthy weight. BMI screening can be repeated to see if these changes are working. How is BMI calculated? BMI involves measuring your weight in relation to your height. Both height and weight are measured, and the BMI is calculated from those numbers. This can be done either in [place] ([place] or metric measurements. Note that charts and online BMI calculators are available to help you find your BMI quickly and easily without having to do these calculations yourself. To calculate your BMI in [place] ([place] measurements: 1.Measure your weight in pounds (lb). 2.Multiply the number of pounds by 703. For example, for a person who weighs 180 lb, multiply that number by 703, which equals 126,540. 3.Measure your height in inches. Then multiply that number by itself to get a measurement called inches squared. For example, for a person who is 70 inches tall, the inches squared measurement is 70 inches x 70 inches, which equals 4,900 inches squared. 4.Divide the total from step 2 (number of lb x 703) by the total from step 3 (inches squared): 126,540 4,900 = 25.8. This is your BMI. To calculate your BMI in metric measurements: 1.Measure your weight in kilograms (kg). 2.Measure your height in meters (m). Then multiply that number by itself to get a measurement called meters squared. For example, for a person who is 1.75 m tall, the meters squared measurement is 1.75 m x 1.75 m, which is equal to 3.1 meters squared. 3.Divide the number of kilograms (your weight) by the meters squared number. In this example: 70 3.1 = 22.6. This is your BMI. What do the results mean? BMI charts are used to identify whether you are underweight, normal weight, overweight, or obese. The following guidelines will be used: Underweight: BMI less than 18.5. Normal weight: BMI between 18.5 and 24.9. Overweight: BMI between 25 and 29.9. Obese: BMI of 30 or above. Keep these notes in mind: Weight includes both fat and muscle, so someone with a muscular build, such as an athlete, may have a BMI that is higher than 24.9. In cases like these, BMI is not an accurate measure of body fat. To determine if excess body fat is the cause of a BMI of 25 or higher, further assessments may need to be done by a health care provider. BMI is usually interpreted in the same way for men and women. Where to find more information For more information about BMI, including tools to quickly calculate your BMI, go to these websites: Centers for Disease Control and Prevention: www.cdc.gov [place] Heart Association: www.heart.org National Heart, Lung, and Blood [place]: www.nhlbi.nih.gov Summary Body mass index (BMI) is a number that is calculated from a person's weight and height. BMI may help estimate how much of a person's weight is composed of fat. BMI can help identify those who may be at higher risk for certain medical problems. BMI can be measured using [place] measurements or metric measurements. BMI charts are used to identify whether you are underweight, normal weight, overweight, or obese. This information is not intended to replace advice given to you by your health care provider. Make sure you discuss any questions you have with your health care provider. Document Revised: 07/06/2020 Document Reviewed: 05/13/2020 [employer] Patient Education 2022 [employer] 03/05/2024 09:47:24 Cervical Sprain, Orqq-qf-Dhnb Cervical Sprain A cervical sprain is also called a neck sprain. It is a stretch or tear in one or more ligaments in the neck. Ligaments are tissues that connect bones to each other. Neck sprains can be mild, bad, or very bad. A very bad sprain in the neck can cause the bones in the neck to be unstable. This can damage the spinal cord. It can also cause serious problems in the brain, spinal cord, and nerves (nervous system). Most neck sprains heal in 4 6 weeks. It can take more or less time depending on: What caused the injury. The amount of injury. What are the causes? Neck sprains may be caused by trauma, such as: An injury from an accident in a vehicle such as a car or boat. A fall. The head and neck being moved front to back or side to side all of a sudden (whiplash injury). Mild neck sprains may be caused by wear and tear over time. What increases the risk? The following factors may make you more likely to develop this condition: Taking part in activities that put you at high risk of hurting your neck. These include: ?Contact sports. ?Car racing. ?Gymnastics. ?Diving. Taking risks when driving or riding in a vehicle such as a car or boat. Arthritis caused by wear and tear of the joints in the spine. The neck not being very strong or flexible. Having had a neck injury in the past. Poor posture. Spending a lot of time in certain positions that put stress on the neck. This may be from sitting at a computer for a long time. What are the signs or symptoms? Symptoms of this condition include: Your neck, shoulders, or upper back feeling: ?Painful or sore. ?Stiff. ?Tender. ?Swollen. ?Hot, or like it is burning. Sudden tightening of neck muscles (spasms). Not being able to move the neck very much. Headache. Feeling dizzy. Feeling like you may vomit, or vomiting. Having a hand or arm that: ?Feels weak. ?Loses feeling (feels numb). ?Tingles. You may get symptoms right away after injury, or you may get them over a few days. In some cases, symptoms may go away with treatment and come back over time. How is this treated? This condition is treated by: Resting your neck. Icing the part of your neck that is hurt. Doing exercises to restore movement and strength to your neck (physical therapy). If there is no swelling, you may use heat therapy 2 3 days after the injury took place. If your injury is very bad, treatment may also include: Keeping your neck in place for a length of time. This may be done using: ?A neck collar. This supports your chin and the back of your head. ?A cervical traction device. This is a sling that holds up your head. The sling removes weight and pressure from your neck. It may also help to relieve pain. Medicines that help with: ?Pain. ?Irritation and swelling (inflammation). Medicines that help to relax your muscles (muscle relaxants). Surgery. This is rare. Follow these instructions at home: Medicines Take xatp-ixb-jnjntaq and prescription medicines only as told by your doctor. Ask your doctor if the medicine prescribed to you: ?Requires you to avoid driving or using heavy machinery. ?Can cause trouble pooping (constipation). You may need to take these actions to prevent or treat trouble pooping: ?Drink enough fluid to keep your pee (urine) pale yellow. ?Take dotq-dfr-vnlaezc or prescription medicines. ?Eat foods that are high in fiber. These include beans, whole grains, and fresh fruits and vegetables. ?Limit foods that are high in fat and sugar. These include fried or sweet foods. If you have a neck collar: Wear it as told by your doctor. Do not take it off unless told. Ask your doctor before adjusting your collar. If you have long hair, keep it outside of the collar. Ask your doctor if you may take off the collar for cleaning and bathing. If you may take off the collar: ?Follow instructions about how to take it off safely. ?Clean it by hand with mild soap and water. Let it air-dry fully. ?If your collar has pads that you can take out: ?Take the pads out every 1 2 days. ?Wash them by hand with soap and water. ?Let the pads air-dry fully before you put them back in the collar. ?Tell your doctor if your skin under the collar has irritation or sores. Managing pain, stiffness, and swelling Use a cervical traction device, if told by your doctor. If told, put ice on the affected area. To do this: ?Put ice in a plastic bag. ?Place a towel between your skin and the bag. ?Leave the ice on for 20 minutes, 2 3 times a day. If told, put heat on the affected area. Do this before exercise or as often as told by your doctor. Use the heat source that your doctor recommends, such as a moist heat pack or a heating pad. ?Place a towel between your skin and the heat source. ?Leave the heat on for 20 30 minutes. ?Take the heat off if your skin turns bright red. This is very important if you cannot feel pain, heat, or cold. You may have a greater risk of getting burned. Activity Do not drive while wearing a neck collar. If you do not have a neck collar, ask if it is safe to drive while your neck heals. Do not lift anything that is heavier than 10 lb (4.5 kg), or the limit that you are told, until your doctor tells you that it is safe. Rest as told by your doctor. Do exercises as told by your doctor or physical therapist. Return to your normal activities as told by your doctor. Avoid positions and activities that make you feel worse. Ask your doctor what activities are safe for you. General instructions Do not use any products that contain nicotine or tobacco, such as cigarettes, e-cigarettes, and chewing tobacco. These can delay healing. If you need help quitting, ask your doctor. Keep all follow-up visits as told by your doctor or physical therapist. This is important. How is this prevented? To prevent a neck sprain from happening again: Practice good posture. Adjust your workstation to help you do this. Exercise regularly as told by your doctor or physical therapist. Avoid activities that are risky or may cause a neck sprain. Contact a doctor if: Your symptoms get worse. Your symptoms do not get better after 2 weeks of treatment. Your pain gets worse. Medicine does not help your pain. You have new symptoms that you cannot explain. Your neck collar gives you sores on your skin or bothers your skin. Get help right away if: You have very bad pain. You get any of the following in any part of your body: ?Loss of feeling. ?Tingling. ?Weakness. You cannot move a part of your body. You have neck pain and either of these: ?Very bad dizziness. ?A very bad headache. Summary A cervical sprain is also called a neck sprain. It is a stretch or tear in one or more ligaments in the neck. Ligaments are tissues that connect bones. Neck sprains may be caused by trauma, such as an injury or a fall. You may get symptoms right away after injury, or you may get them over a few days. Neck sprains may be treated with rest, heat, ice, medicines, exercise, and surgery. This information is not intended to replace advice given to you by your health care provider. Make sure you discuss any questions you have with your health care provider. Document Revised: 01/21/2023 Document Reviewed: 06/22/2020 [employer] Patient Education 2022 [employer] [facility] 12-11-2023 History of Present illness Narrative Skin Check Location: Patient requests a skin examination from the waist up Dermatologic history: no history of skin cancer, no history of atypical moles Last visit: 1 year ago Established patient Follow up Diagnosis: Atopic Dermatitis Location: Hands, back Last visit: 1 year ago Symptoms: some cracking Status: Stable on treatment Current treatment: Protopic (tacrolimus) 0.1% ointment, Triamcinolone 0.1% cream Lesion(s) Location: Right great toenail Duration: few months Quality: denies pain, denies itch, denies bleeding Associated symptoms: denies any injury to area Treatments: none Established patient General Exam: alert , oriented to person, place, and time , normal affect, well appearing Unaccompanied Scalp, Examined Right leg Not examined Head, Face Examined Left leg Not examined Neck Examined Right foot Not examined Chest Examined Left foot Examined Back Examined Buttocks Not examined Abdomen Examined Digits,nails: Examined Right arm Examined Left arm Examined Lymphatics: Not examined Hands Examined All pertinent medical history, medications, and allergies were reviewed. General Exam: alert , oriented to person, place, and time , normal affect, well appearing Unaccompanied A focused exam completed based on patient reported problems, see below: 1. Atopic dermatitis, unspecified type Left Hand - Anterior, Right Hand - Anterior Scaly erythematous plaques +/- dyspigmentation, lichenification, excoriations. Stable Discussed that atopic dermatitis is a chronic condition that can be controlled but not cured. Continue Protopic ointment and TAC cream bid prn when flared, hold if smooth/asymptomatic. Encouraged daily moisturizing and gentle cleansers to prevent flares. 2. Epidermal inclusion cyst Left Axilla subcutaneous, mobile nodule WITH/WITHOUT central punctum. Patient was counseled regarding cysts. Although benign, cysts often slowly enlarge and can occasionally become inflamed. Discussed the only way to definitively diagnose the lesion would be to have it removed and tested. Discussed treatment options including observation vs. excision. Patient elected for observation. Notify office if lesion is enlarging or becomes symptomatic. 3. Neoplasm of unspecified behavior of bone, soft tissue, and skin Mid Parietal Scalp Irregularly pigmented papule Lesion biopsy Type of biopsy: tangential Informed consent: discussed and consent obtained Informed consent comment: The risks and benefits of the biopsy were discussed. Risks include but are not limited to bleeding, infection, scarring, pain, and nerve damage. An opportunity to ask questions prior to the procedure was permitted and all questions were answered. Patient was prepped and draped in usual sterile fashion: area cleansed with alcohol. Anesthesia: the lesion was anesthetized in a standard fashion Anesthetic: 1% lidocaine w/ epinephrine 1-100,000 buffered w/ 8.4% NaHCO3 Instrument used: DermaBlade Hemostasis achieved with: electrodesiccation Outcome: patient tolerated procedure well Outcome comment: The specimen was placed in a prelabeled formalin container to be sent for pathology Post-procedure details: sterile dressing applied and wound care instructions given Post-procedure details comment: Emphasized need to contact clinic for any signs of infection, uncontrollable bleeding, or complications. Dressing type: bandage Additional details: Photo taken yes Amount of lidocaine used: 0.5 cc Specimen A - Dermatopathology exam Differential Diagnosis: AK vs. Lentigo vs. BCC Check Margins: No Size of lesion: 0.6 x 0.5 cm 4. Sebaceous hyperplasia of face Head - Anterior (Face) Small yellow papules with a central dell. Reassure, benign. Discussed these can be removed for a cosmetic fee with the hyfrecator if desired. 5. Melanocytic nevus of trunk Torso - Posterior (Back) Scattered benign appearing, regular brown to light brown melanocytic papules and macules with similar morphology Counseled regarding these benign growths. Rarely, a nevus can develop into malignant melanoma, so any changing nevi should be promptly re-evaluated. 6. Angioma of skin (2) Abdomen (Lower Torso, Anterior), Chest (Upper Torso, Anterior) Scattered quiñones-red papule(s). The patient was informed that angiomas are benign growths on the the skin. No treatment is necessary. Next Visit: 1 year documented in this encounter [facility] 12-02-2023 Evaluation note Encounter Date Diagnosis Assessment Notes Nov, Other obesity due to excess calories (ICD-10 - E66.09) This patient is aware of the benefits associated with SAMUEL: With continued use, the patient reduces the risk for HI, CVA, HTN, cardiac dysrhythmias and sudden cardiac deaths.The patient is also aware of the association between SAMUEL and morning headaches, daytime somnolence, fatigue and obesity, which also has been improved with continued use.The patient is compliant with treatment, wearing the equipment every night for greater than 4 hours.The patient is instructed to continue use of the CPAP for SAMUEL treatment. d/c Adipex due to possible ADR Nov, Primary hypertension (ICD-10 - I10) This patient is instructed to consume a healthy, low-fat, low-salt diet. They are also encouraged to continue exercise to achieve/maintai n a normal BMI. Patient is instructed on home BP measurements: - rest for 5 minutes w/o talking.- positioned w/ feet on floor and arm supported.- average best 2/3 readings w/ goal < 135/85.- update office w/ home readings in 2 weeks. Hold Amlodipine and monitor BP Nov, Body mass index [BMI] 34.0-34.9, adult (ICD-10 - Z68.34) Nov, Encounter for medication management (ICD-10 - Z79.899) Instructed to stop his Adipex for now. Possible ADR w/ stopping and starting medication: flushing [facility] Other 12-27-2023 Evaluation note* Encounter Date Diagnosis Assessment Notes Treatment Notes Treatment Clinical Notes Sep, Other obesity due to excess calories (ICD-10 - E66.09) This patient has been instructed on a low-fat, high-fiber diet. They are instructed to reduce calories, portion sizes and snacks. It is recommended that they exercise for 30 minutes, 3-5 times weekly. Encouraged to reduce calories and increase activity He has not lost weight after initially losing 8 lbs. Must lose 11 lbs over next 4mo Sep, Primary hypertension (ICD-10 - I10) This patient is instructed to consume a healthy, low-fat, low-salt diet. They are also encouraged to continue exercise to achieve/maintain a normal BMI. Patient is instructed on home BP measurements: - rest for 5 minutes w/o talking- positioned w/ feet on floor and arm supported- average best 2/3 readings w/ goal < 135/85 Initiate treatment Sep, Body mass index [BMI] 34.0-34.9, adult (ICD-10 - Z68.34) Sep, Encounter for medication management (ICD-10 - Z79.899) No adverse effects from use of Adipex [facility] Other 11-29-2023 Evaluation note* Encounter Date Diagnosis Assessment Notes Treatment Notes Treatment Clinical Notes Aug, Hypercholesterolemia (ICD-10 - E78.00) Instructed on diet and exercise with continued statin therapy.Discussed the beneficial effects of lowering cholesterol in reducing the risk for cerebrovascular and cardiovascular disease. Aug, Other obesity due to excess calories (ICD-10 - E66.09) This patient has been instructed on a low-fat, high-fiber diet. They are instructed to reduce calories, portion sizes and snacks. It is recommended that they exercise for 30 minutes, 3-5 times weekly. Aug, Body mass index [BMI ] 34.0-34.9, adult (ICD-10 - Z68.34) Aug, Elevated BP without diagnosis of hypertension (ICD-10 - R03.0) His mother is ill and in the hospital. He has been anxious/stressed due to her illness and was rushing prior to this visit. He was instructed to monitor at home and update office w/ results Aug, Encounter for medica tion management (ICD-10 - Z79.899) He has been successful in losing weight w/ Adipex He denies adverse effects from the medication Specifically, he denies CP, tremors, insomnia or palpitations [facility] Other 10-30-2023 Evaluation note* Encounter Date Diagnosis Assessment Notes Treatment Notes Treatment Clinical Notes Jul, Body mass index [BMI ] 33.0-33.9, adult (ICD-10 - Z68.33) Jul, Hypercholesterolemia (ICD-10 - E78.00) Instructed on diet and exercise with continued statin therapy.Discussed the beneficial effects of lowering cholesterol in reducing the risk for cerebrovascular and cardiovascular disease. Jul, Other obesity due to excess calories (ICD-10 - E66.09) This patient has been instructed on a low-fat, high-fiber diet. They are instructed to reduce calories, portion sizes and snacks. It is recommended that they exercise for 30 minutes, 3-5 times weekly. Would like to restart Adipex Jul, Encounter for medica tion management (ICD-10 - Z79.899) He denies any ADR when previously taking Adipex. He knows to stop immediately if develops chest pain, palpitations, tremors or insomnia. [facility] Other 06-20-2023 Evaluation note* Encounter Date Diagnosis Assessment Notes Treatment Notes Treatment Clinical Notes Mar, Other obesity due to excess calories (ICD-10 - E66.09) This patient has been instructed on a low-fat, high-fiber diet. They are instructed to reduce calories, portion sizes and snacks. It is recommended that they exercise for 30 minutes, 3-5 times weekly. Mar, Body mass index [BMI] 33.0-33.9, adult (ICD-10 - Z68.33) Mar, Encounter for medication management (ICD-10 - Z79.899) No adverse reaction to medication. Medication with therapeutic benefit [facility] Other 01-24-2023 Evaluation note* Encounter Date Diagnosis Assessment Notes Treatment Notes Treatment Clinical Notes Oct, Dyshidrotic eczema (ICD-10 - L30.1) Moisturize and continue topical steroids. f/u with Dermatology for alternative treatments Oct, LARRY (generalized anxiety disorder) (ICD-10 - F41.1) Healthy diet, exercise, keep active. Xanax as needed. Oct, Erectile dysfunction due to arterial insufficiency (ICD-10 - N52.01) Reassured, initiated drug treatment. Side effects discussed. [facility] Other Evaluation + Plan note No data available for this section [facility] Evaluation note* Diagnosis Atopic dermatitis, unspecified type Epidermal inclusion cyst Sebaceous cyst Neoplasm of unspecified behavior of bone, soft tissue, and skin Sebaceous hyperplasia of face Melanocytic nevus of trunk Benign neoplasm of skin of trunk, except scrotum Angioma of skin documented in this encounter [facility] N[facility] - Reported* Type Description Date Medical History Adenoma of colon Medical History Hypercholesterolemia Medical History LARRY (generalized anxiety disorde r) Medical History Adenomatous polyp of descending colon Medical History Adenocarcinoma of prostate Medical History History of radical prostatectomy Medical History Tinea corporis Medical History Tinea versicolor Surgical History Ultrasound-Prostate 2018 Surgical History LAPARO RADICAL PROSTATECTOMY Surgical History COLONOSCOPY 2021 Hospitalization History SEE SURGICAL HX [facility] Other Progress note No data available for this section [facility] Summary Purpose Family History No Family History Records FoundNo Family History Records FoundNo Family History Records Found No data available for this section No Family History Records Found Advance Directives No Advanced Directives Records FoundNo Advanced Directives Records FoundNo Advanced Directives Records FoundNo Advanced Directives Records Found Additional Source Comments (unrecognized sect ion and content) No Status Records FoundNo Status Records FoundNo Status Records FoundNo Status Records Found INFORMATION SOURCE (unrecogn ized section and content) DATE CREATED AUTHOR 05/08/2022 [facility] DATE CREATED AUTHOR AUTHOR'S ORGANIZ ATION 04/05/2023 [facility] DATE CREATED AUTHOR AUTHOR'S ORGANIZ ATION 02/12/2024 [facility] EPIC DATE CREATED AUTHOR AUTHOR'S ORGANIZ ATION 03/07/2024 [facility] REASON FOR VISIT (unrecogniz ed section and content) Reason Comments Skin Check Patient Care team informatio n (unrecognized section and content) Personnel Name: CB GUERRERO DO Address: Address: [facility] FOR RECORDS PERTAINING TO PATIENTS WHO ARE OR HAVE BEEN ENROLLED IN A CHEMICAL DEPENDENCY/SUBSTANCEABUSE PROGRAM, SOME INFORMATION MAY BE OMITTED. This clinical summary was aggregated from multiple sources. Caution should be exercised in using it in the provision of clinical care. This summary normalizes information from multiple sources, and as a consequence, information in this document may materially change the coding, format and clinical context of patient data. In addition, data may be omitted in some cases. CLINICAL DECISIONS SHOULD BE BASED ON THE PRIMARY CLINICAL RECORDS. [employer] [facility]. provides no warranty or guarantee of the accuracy or completeness of information in this document.
[2024-04-06 10:49] LABS: Prostate Specific Antigen Dx <0.13 ng/mL (<=4.00)
== END 2024-04-06 07:02 | disposition home or self-care (01) ==
PROVIDERS: PCP Internal Medicine
DX: C61 Malignant neoplasm of prostate (principal)
CPT/HCPCS: 36415; 84153

== ENCOUNTER 2024-07-07 15:14 | Outpatient (OUT) | payer OTHER, SELFPAY ==
[2024-07-07 15:56] LABS: Basophils Percent Auto 0.3 % (0.2-2.0); Eosinophils Absolute Auto 0.1 10^3/uL (0.0-0.7); Eosinophils Percent Auto 2.2 % (0.9-7.0); Hematocrit 37.7 % (42.0-54.0); Hemoglobin 13.5 g/dL (14.0-18.0); Immature Granulocytes Abs Auto 0.02 10^3/uL (0.00-0.03); Immature Granulocytes Pct Auto 0.3 % (0.0-0.5); Lymphocytes Absolute Auto 2.4 10^3/uL (1.2-3.8); Lymphocytes Percent Auto 39.3 % (20.5-60.0); Mean Corpuscular HGB Conc 35.8 g/dL (29.9-35.2); Mean Corpuscular Hemoglobin 30.1 pg (25.9-34.0); Mean Corpuscular Volume 84.2 fL (80.0-94.0); Mean Platelet Volume 9.7 fL (9.5-13.5); Monocytes Absolute Auto 0.7 10^3/uL (0.3-0.8); Monocytes Percent Auto 11.3 % (1.7-12.0); Neutrophils Absolute Auto 2.8 10^3/uL (1.4-6.5); Neutrophils Percent Auto 46.6 % (43.0-75.0); Platelet Count 211 10^3/uL (150-450); Red Blood Count 4.48 10^6/uL (4.70-6.10); Red Cell Distribution Width 13.7 % (11.0-15.0)
== END 2024-07-07 15:15 | disposition home or self-care (01) ==
LOC: LAB 15:15
PROVIDERS: PCP Internal Medicine; Visit Provider Internal Medicine
DX: D64.9 Anemia, unspecified (principal)
CPT/HCPCS: 36415; 85025

== ENCOUNTER 2024-08-29 07:55 | Outpatient (OUT) | payer OTHER, SELFPAY ==
--- OUTSIDE RECORDS SUMMARY | 2024-08-29 07:59 | XMS_ITS | CCD ---
Author Organization [facility] Inform ion Partnership [facility] Care Team Providers Care Supervisor [place] Name Role Phone Cb Guerrero Unavailable CESAR, DR CORTÉS Admitting Unavailable BALL, DR CORTÉS [...] Bedtime, # 10 tab(s), Refills(s) 0, Pharmacy: [facility]/pharmacy #[id number], 172, cm, 03/05/24 9:18:00 EDT, Height/Length Dosing, 104.5, kg, 03/05/24 9:18:00 EDT, Weight Dosing Start Date: 03/05/24 Status: Ordered Mis Medication (1 source) Start: 07-14-2019 Misc Medication [...] day(s), # 10 tab(s), Refills(s) 0, Pharmacy: [facility]/pharmacy #[id number], 172, cm, 03/05/24 9:18:00 EDT, Height/Length [...] 12-11-2023 Episodic Other aftercare (5 sources) Other skilled nursing (current) drug therapy Episodic Other and unspecified [...] At bedtime Sprain of neck Pickup at [facility]/pharmacy #[id number] New predniSONE (predniSONE 20 mg Tab) 2 Tablets By Mouth Every day Sprain of neck Duration: 5 Days Pickup at [facility]/pharmacy #[id number] Unchanged Non-Formulary Medication (Misc Medication) See instructions Unchanged rosuvastatin (rosuvastatin 20 mg Tab) Pharmacy Information [facility]/pharmacy #[id number]: [address] [place], [place] [id number] [phone] Allergies No Known Allergies Problems Ongoing - [...] for choosing us for your care. Normal [facility] Family Medicine Office/Clini c Noteon 03-05-2024 Family Medicine Office/Clinic Note Chief Complaint neck pain HPI Staff 53 year old male presents with neck pain since saturday. Patient was playing golf and felt pain on right shoulder after a swing. Pain is radiating to neck. Limited range of motion. History of Present Illness Reviewed and agree with above documented HPI by special forces medical sergeant. Patient is a 53-year-old male who presents [...] Bedtime, # 10 tab(s), Refills(s) 0, Pharmacy: [facility]/pharmacy #[id number], 172, cm, 03/05/24 9:18:00 EDT, Height/Length Dosing, 104.5, kg, 03/05/24 9:18:00 EDT, Weight Dosing predniSONE, 40 mg = 2 tab(s), Oral, Daily, X 5 day(s), # 10 tab(s), Refills(s) 0, Pharmacy: [facility]/pharmacy #[id number], 172, cm, 03/05/24 9:18:00 EDT, Height/Length [...] with voice recognition artificial intelligence software, specifically Holidog, IQuum and or CSL DualCom (more content not included)... Normal [facility] Comment on above: Result Comment: Elec [...] numbers. This can be done either in [place] ([place] or metric measurements. Note that charts and online BMI calculators are available to help you find your BMI quickly and easily without having to do these calculations yourself. To calculate your BMI in [place] ([place].S.) measurements: 1. Measure your weight in [...] for Disease Control and Prevention: www.cdc.gov ? [place] Heart Association: www.heart.org ? National Heart, Lung, and Blood [place]: www.nhlbi.nih.gov Summary ? Body mass index (BMI) is a number that is calculated from a person's weight and height. ? BMI may help estimate how much of a person's weight is composed of fat. BMI can help identify those who may be at higher risk for certain medical problems. ? BMI can be measured using Egyptian measurements or metric measurements. ? BMI charts are used to identify whether you are underweight, normal weight, overweight, or obese. This information is not intended to replace advice given to you by your health care provider. Make sure you discuss any questions you have with your health care provider. Document Revised: 07/06/2020 Document Reviewed: 05/13/2020 [employer] Patient Education ? 2022 [employer] Orthopedics Cervical Sprain A cervical sprain [...] a vehicle (more content not included)... Normal [facility] Patient Letter FTon 2023 Patient Letter [facility] [address] [place] [address] March 05, 2024 VISHAL MACHADO [address] [place] [address] [place] [address] : 1970 Please excuse VISHAL MACHADO from work . He was being seen at [facility]. May return to work on: 03/05/2024 Restrictions: None Comments: Please excuse due to an acute illness. Provider Signature: Violeta Loya CNP [address] [place] [address] [place] [address] Normal [facility] MR KNEE LEFT WO IV CONTRASTo [...] yes Amount of lidocaine used: 0.5 cc [facility] [employer] [facility] CBC AUTO DIFFon 03-23-2023 BASO # 0.0 103/ul Normal 0.0-0.1 [facility] Comment on above: Performed By: #### C BC #### [facility] [address] [place] [address] Dr. Carmen Schmidt Basophils/100 WBC (Bld) 0.8 % Normal 0.2-2.0 [facility] Comment on above: Performed By: #### C BC #### [facility] [address] [place] [address] Dr. Carmen Schmidt EO # 0.1 103/ul Normal 0.0-0.7 [facility] Comment on above: Performed By: #### C BC #### [facility] [address] [place] [address] Dr. Carmen Schmidt Eosinophils/100 WBC (Bld) 2.2 % Normal 0.9-7.0 [facility] Comment on above: Performed By: #### C BC #### [facility] [address] [place] [address] Dr. Carmen Schmidt Erythrocyte distribution width (RBC) [Ratio] 13.2 % Normal 11.0-15.0 [facility] Comment on above: Performed By: #### C BC #### [facility] [address] [place] [address] Dr. Carmen Schmidt Hematocrit (Bld) [Volume fraction] 41.0 % Critically low 42.0-54.0 [facility] Comment on above: Performed By: #### C BC #### [facility] [address] [place] [address] Dr. Carmen Schmidt Hemoglobin (Bld) [Mass/Vol] 14.7 g/dL Normal 14.0-18.0 [facility] Comment on above: Performed By: #### C BC #### [facility] [address] [place] [address] Dr. Carmen Schmidt IG # 0.04 10e3/ul Critically high 0.00-0.03 [facility] Comment on above: Performed By: #### C BC #### [facility] [address] [place] [address] Dr. Carmen Schmidt IG % 0.8 % Critically high 0.0-0.5 [facility] Comment on above: Performed By: #### C BC #### [facility] [address] [place] [address] Dr. Carmen Schmidt LYMPH # 1.9 103/ul Normal 1.2-3.8 [facility] Comment on above: Performed By: #### C BC #### [facility] [address] [place] [address] Dr. Carmen Schmidt Lymphocytes/100 WBC (Bld) 37.0 % Normal 20.5-60.0 [facility] Comment on above: Performed By: #### C BC #### [facility] [address] [place] [address] Dr. Carmen Schmidt MANUAL DIFF REQ NO Normal [facility] Comment on above: Performed By: #### C BC #### [facility] [address] [place] [address] Dr. Carmen Schmidt MCH (RBC) [Entitic mass] 30.4 pg Normal 25.9-34.0 [facility] Comment on above: Performed By: #### C BC #### [facility] [address] [place] [address] Dr. Carmen Schmidt MCHC (RBC) [Mass/Vol] 35.9 g/dL Critically high 29.9-35.2 [facility] Comment on above: Performed By: #### C BC #### [facility] [address] [place] [address] Dr. Carmen Schmidt MCV (RBC) [Entitic vol] 84.9 fL Normal 80.0-94.0 [facility] Comment on above: Performed By: #### C BC #### [facility] [address] [place] [address] Dr. Carmen Schmidt MONO # 0.6 103/ul Normal 0.3-0.8 [facility] Comment on above: Performed By: #### C BC #### [facility] [address] [place] [address] Dr. Carmen Schmidt Monocytes/100 WBC (Bld) 11.9 % Normal 1.7-12.0 [facility] Comment on above: Performed By: #### C BC #### [facility] [address] [place] [address] Dr. Carmen Schmidt NEUT # 2.4 103/ul Normal 1.4-6.5 [facility] Comment on above: Performed By: #### C BC #### [facility] [address] [place] [address] Dr. Carmen Schmidt Neutrophils/100 WBC (Bld) 47.3 % Normal 43.0-75.0 [facility] Comment on above: Performed By: #### C BC #### [facility] [address] [place] [address] Dr. Carmen Schmidt Platelet mean volume (Bld) [Entitic vol] 9.5 fL Normal 9.5-13.5 [facility] Comment on above: Performed By: #### C BC #### [facility] [address] [place] [address] Dr. Carmen Schmidt PLT 223 103/ul Normal 150-450 [facility] Comment on above: Performed By: #### C BC #### [facility] [address] [place] [address] Dr. Carmen Schmidt RBC 4.83 106/ul Normal 4.70-6.10 [facility] Comment on above: Performed By: #### C BC #### [facility] [address] [place] [address] Dr. Carmen Schmidt WBC 5.0 103/ul Normal 4.0-11.0 [facility] Comment on above: Performed By: #### C BC #### [facility] [address] [place] [address] Dr. Carmen Schmidt LIPID PROFILEon 03-23-2023 CHOL-HDL RATIO NORM SEE BELOW Normal [facility] Comment on above: Result Comment: 3.3 - 4.4 LOW RISK 4.4 - 7.1 AVERAGE RISK 7.1 - 11.0 MODERATE RISK >11.0 HIGH RISK Performed By: #### C MP, LIPID #### [facility] [address] [place] [address] Dr. Carmen Schmidt Cholesterol [Mass/Vol] 108 mg/dL Normal <=200 [facility] Comment on above: Performed By: #### C MP, LIPID #### [facility] [address] [place] [address] Dr. Carmen Schmidt Cholesterol in HDL [Mass/Vol] 35 mg/dL Critically low 40-60 [facility] Comment on above: Performed By: #### C MP, LIPID #### [facility] [address] [place] [address] Dr. Carmen Schmidt Cholesterol in LDL [Mass/Vol] 60.4 mg/dL Normal [facility] Comment on above: Performed By: #### C MP, LIPID #### [facility] [address] [place] [address] Dr. Carmen Schmidt Cholesterol.total/ Cholesterol in HDL [Mass ratio] 3.1 {ratio} Normal [facility] Comment on above: Performed By: #### C MP, LIPID #### [facility] [address] [address] [address] Carmen Schmidt HDL NORMAL > or = 60 mg/dl - LO W CARDIOVASCULAR RISK <40 mg/dl - HIGH CARDIOVASCULAR RISK Normal [facility] Comment on above: Performed By: #### C MP, LIPID #### [facility] [address] [address] [address] Carmen Schmidt LDL CALC NORMAL SEE BELOW Normal [facility] Comment on above: Result Comment: <100 mg/dl OPTIMAL 100 - 129 mg/dl NEAR OR ABOVE OPTIMAL 130 - 159 mg/dl BORDERLINE HIGH 160 - 189 mg/dl HIGH >190 mg/dl VERY HIGH Performed By: #### C MP, LIPID #### [facility] [address] [address] [address] Carmen Schmidt Triglyceride [Mass/Vol] 63 mg/dL Normal <=150 [facility] Comment on above: Performed By: #### C MP, LIPID #### [facility] [address] [address] [address] Carmen Schmidt VLDL CALC 12.6 mg/dL Normal [facility] Comment on above: Performed By: #### C MP, LIPID #### [facility] [address] [address] [address] Carmen Schmidt PROF 14(COMP METB)on 023 Albumin [Mass/Vol] 4.3 g/dL Normal 3.4-5.0 [facility] Comment on above: Performed By: #### C MP, LIPID #### [facility] [address] [address] [address] Carmen Schmidt Albumin/Globulin [Mass ratio] 1.5 {ratio} Normal [facility] Comment on above: Performed By: #### C MP, LIPID #### [facility] [address] [address] [address] Carmen Schmidt ALP [Catalytic activity/Vol] 69 U/L Normal 46-116 [facility] Comment on above: Performed By: #### C MP, LIPID #### [facility] [address] [address] [address] Carmen Schmidt ALT [Catalytic activity/Vol] 31 U/L Normal 16-63 [facility] Comment on above: Performed By: #### C MP, LIPID #### [facility] [address] [address] [address] Carmen Schmidt Anion gap [Moles/Vol] 15.7 mmol/L Normal [facility] Comment on above: Performed By: #### C MP, LIPID #### [facility] [address] [address] [address] Carmen Schmidt AST [Catalytic activity/Vol] 17 U/L Normal 15-37 [facility] Comment on above: Performed By: #### C MP, LIPID #### [facility] [address] [place] [address] Dr. Carmen Schmidt Bilirubin [Mass/Vol] 0.6 mg/dL Normal 0.2-1.0 [facility] Comment on above: Performed By: #### C MP, LIPID #### [facility] [address] [address] [address] Carmen Schmidt Calcium [Mass/Vol] 8.9 mg/dL Normal 8.5-10.1 [facility] Comment on above: Performed By: #### C MP, LIPID #### [facility] [address] [address] [address] Carmen Schmidt Chloride [Moles/Vol] 106 mmol/L Normal 98-107 [facility] Comment on above: Performed By: #### C MP, LIPID #### [facility] [address] [address] [address] Carmen Schmidt CO2 [Moles/Vol] 26.2 mmol/L Normal 21.0-32.0 [facility] Comment on above: Performed By: #### C MP, LIPID #### [facility] [address] [address] [address] Carmen Schmidt Creatinine [Mass/Vol] 0.70 mg/dL Normal 0.70-1.30 [facility] Comment on above: Performed By: #### C MP, LIPID #### [facility] [address] [address] [address] Carmen Schmidt EGFR-AF ANDORRAN >60 Normal >=60 [facility] Comment on above: Performed By: #### C MP, LIPID #### [facility] [address] [address] [address] Carmen Schmidt EGFR-NON AF ANDORRAN >60 Normal >=60 [facility] Comment on above: Performed By: #### C MP, LIPID #### [facility] [address] [address] [address] Carmen Schmidt Globulin (S) [Mass/Vol] 2.9 g/dL Normal [facility] Comment on above: Performed By: #### C MP, LIPID #### [facility] [address] [place] [address] Dr. Carmen Schmidt Glucose [Mass/Vol] 103 mg/dL Normal 74-106 [facility] Comment on above: Performed By: #### C MP, LIPID #### [facility] [address] [address] [address] Carmen Schmidt Potassium [Moles/Vol] 4.9 mmol/L Normal 3.5-5.1 [facility] Comment on above: Performed By: #### C MP, LIPID #### [facility] [address] [address] [address] Carmen Schmidt Protein [Mass/Vol] 7.2 g/dL Normal 6.4-8.2 [facility] Comment on above: Performed By: #### C MP, LIPID #### [facility] [address] [address] [address] Carmen Schmidt Sodium [Moles/Vol] 143 mmol/L Normal 136-145 [facility] Comment on above: Performed By: #### C MP, LIPID #### [facility] [address] [address] [address] Carmen Schmidt Urea nitrogen [Mass/Vol] 9.0 mg/dL Normal 7.0-18.0 [facility] Comment on above: Performed By: #### C MP, LIPID #### [facility] [address] [place], [place] [address] Dr. Carmen Schmidt Urea nitrogen/Creatinin e [Mass ratio] 12.9 mg/mg Normal [facility] Comment on above: Performed By: #### C MP, LIPID #### [facility] [address] [place], [place] [address] Dr. Carmen Singh 05-03-2022 L --- Specimen: [id number] Received: 05/03/22 Status: ANA M [place] Num: [id number] Spec Type: Surgical Subm Dr: Francisco Coleman MD Tissues: A Colon - Polyp (ASCENDING POLYP) B Colon Biopsy (SIGMOID) C Colon - Polyp (SIGMOID POLYP) Procedures: HE Stain/6, Gross/Micro L4/3 Patient Age/Sex Location Account Attending Physician Vishal Machado/Martha [id number] Francisco Coleman MD SPEC NUM: [id number] RECD: 05/03/22 STATUS: ANA M HOLDERTara NUM: [id number] SUDHAKAR: 05/03/22- SUBM DR: Francisco Coleman MD ENTERED: 05/03/[address] [facility] [address]: SPEC TYPE: Surgical DEPT: S ORDERED: [...] number and polyp sigmoid are two Specimen: [id number] Received: 05/03/22 Status: ANA M Claire Num: [id number] Spec Type: Surgical Subm Dr: Francisco Coleman MD Tissues: A Colon - Polyp (ASCENDING POLYP) B Colon Biopsy (SIGMOID) C Colon - Polyp (SIGMOID POLYP) Procedures: HE Stain/6, Gross/Micro L4/3 Patient: Vishal Machado [id number] (Continued) Specimen: [id number] Received: 05/03/22 (Continued) Gross Description (Continued) Signed (signature on file) Lois Chong MD 05/04/22 1534 Specimen: [id number] Received: 05/03/22 Status: ANA M Rangel Num: [id number] Spec Type: Surgical Subm Dr: Francisco Coleman MD Tissues: A Colon - Polyp (ASCENDING POLYP) B Colon Biopsy (SIGMOID) C Colon - Polyp (SIGMOID POLYP) Procedures: HE Stain/6, Gross/Micro L4/3 Patient: Vishal Machado [id number] (Continued) Specimen: [id number] Received: 05/03/22 (Continued) Gross Description (Continued) fragments [...] support the above pathologic diagnosis. CPT Codes 06670?3 Specimen: [id number] Received: 05/03/22 Status: ANA M Rangel Num: [id number] Spec Type: Surgical Subm Dr: Francisco Coleman MD Tissues: A Colon - Polyp (ASCENDING POLYP) B Colon Biopsy (SIGMOID) C Colon - Polyp (SIGMOID POLYP) Procedures: HE Stain/6, Gross/Micro L4/3 Patient: Vishal Machado Umu [id number] (Continued) Signed (signature on file) Lois Chong MD 05/04/22 1534 [facility] COVID-19 Antigenon 2 COVID-19 Antigen Healthcare Worker?: [...] developed and its performance characteristic determined by [employer] and validated at [facility]. This test has not been FDA [...] for SARS Antigen by CINDA PERFORMED BY: [place] [address] PATHOLOGIST FRUIT I FARMWORKER LAKHWINDER REYES M.D. [facility] Comment on above: Performed By: #### S RADHA COVID-19 MINAL #### [facility] [address] [place] [address] Minal Ag Negativeon 05-01-20 Minal Ag Negative Negative Normal Negative [facility] Comment on above: Result Comment: This is a duplicate Minal SARS Antigen (CINDA) result to be used for statistical tracking purpose only. PERFORMED BY: [place] [address] PATHOLOGIST FRUIT I FARMWORKER LAKHWINDER REYES M.D. Performed By: #### S RADHA COVID-19 MINAL #### [facility] [address] [place] [address] Vital Signs Date Time Vital Sign Value Performing Clinician Facility 03-05-2024 09:15-0400 Blood Pressure Location [facility] 03-05-2024 09:15-0400 Body temperature 97.7 [degF] [facility] 03-05-2024 09:15-0400 Diastolic blood pressure 102 mm[Hg] [facility] 03-05-2024 09:15-0400 Heart rate 93 /min Violeta Loya [facility] [place] [facility] 03-05-2024 09:15-0400 SaO2% (BldA) [Mass fraction] 97 % [facility] 03-05-2024 09:15-0400 Systolic blood pressure 144 mm[Hg] [facility] 12-02-2023 14:30-0500 Body height 172.72 cm Cb Ball Other [facility] [employer] Other 12-02-2023 14:30-0500 Body mass index (BMI) [Ratio] 34.15 kg/m2 Cb Ball Other [employer] Other 12-02-2023 14:30-0500 Body weight 101.88 kg Cb Ball Other [employer] Other 12-02-2023 14:30-0500 Diastolic blood pressure 78 mm[Hg] Cb Ball Other [employer] Other 12-02-2023 14:30-0500 Respiratory rate 12 /min Cb Ball Other [employer] Other 12-02-2023 14:30-0500 Systolic blood pressure 136 mm[Hg] Cb Ball Other [employer] Other 10-23-2023 15:00-0500 Body height 172.72 cm Cb Ball Other [employer] Other 10-23-2023 15:00-0500 Body mass index (BMI) [Ratio] 34.88 kg/m2 Cb Ball Other [employer] Other 10-23-2023 15:00-0500 Body weight 104.06 kg Cb Ball Other [employer] Other 10-23-2023 15:00-0500 Diastolic blood pressure 92 mm[Hg] Cb Ball Other [employer] Other 10-23-2023 15:00-0500 Respiratory rate 12 /min Cb Ball Other [employer] Other 10-23-2023 15:00-0500 Systolic blood pressure 152 mm[Hg] Cb Ball Other [employer] Other 09-25-2023 15:30-0500 Body height 172.72 cm Cb Ball Other [employer] Other 09-25-2023 15:30-0500 Body mass index (BMI) [Ratio] 34.3 kg/m2 Cb Ball Other [employer] Other 09-25-2023 15:30-0500 Body weight 102.33 kg Cb Ball Other [employer] Other 09-25-2023 15:30-0500 Diastolic blood pressure 91 mm[Hg] Cb Ball Other [employer] Other 09-25-2023 15:30-0500 Respiratory rate 12 /min Cb Ball Other [employer] Other 09-25-2023 15:30-0500 Systolic blood pressure 142 mm[Hg] Cb Ball Other [employer] Other 08-26-2023 14:30-0400 Body height 172.72 cm Cb Ball Other [employer] Other 08-26-2023 14:30-0400 Body mass index (BMI) [Ratio] 35.55 kg/m2 Cb Ball Other [employer] Other 08-26-2023 14:30-0400 Body weight 106.05 kg Cb Ball Other [employer] Other 08-26-2023 14:30-0400 Diastolic blood pressure 86 mm[Hg] Cb Ball Other [employer] Other 08-26-2023 14:30-0400 Respiratory rate 12 /min Cb Ball Other [employer] Other 08-26-2023 14:30-0400 Systolic blood pressure 138 mm[Hg] Cb Ball Other [employer] Other 04-16-2023 14:15-0400 Body height 172.72 cm Cb Ball Other [employer] Other 04-16-2023 14:15-0400 Body mass index (BMI) [Ratio] 33.63 kg/m2 Cb Ball Other [employer] Other 04-16-2023 14:15-0400 Body weight 100.34 kg Cb Ball Other [employer] Other 04-16-2023 14:15-0400 Diastolic blood pressure 82 mm[Hg] Cb Ball Other [employer] Other 04-16-2023 14:15-0400 Respiratory rate 12 /min Cb Ball Other [employer] Other 04-16-2023 14:15-0400 Systolic blood pressure 132 mm[Hg] Cb Ball Other [employer] Other 11-20-2022 15:00-0500 Body height 172.72 cm Cb Ball Other [employer] Other 11-20-2022 15:00-0500 Body mass index (BMI) [Ratio] 37.43 kg/m2 Cb Ball Other [employer] Other 11-20-2022 15:00-0500 Body weight 111.68 kg Cb Ball Other [employer] Other 11-20-2022 15:00-0500 Diastolic blood pressure 82 mm[Hg] Cb Ball Other [employer] Other 11-20-2022 15:00-0500 Respiratory rate 12 /min Cb Ball Other [employer] Other 11-20-2022 15:00-0500 Systolic blood pressure 132 mm[Hg] Cb Ball Other [employer] Other Encounters Encounter Date Encounter Type Care Provider Facility Start: 03-05-2024 End: 03-06-2024 ambulatory Violeta Loya Facility:[facility] Start: 03-05-2024 End: 03-05-2024 Patient encounter procedure Violeta Loya [facility] Start: 02-11-2024 End: 02-11-2024 ambulatory [...] End: 12-11-2023 Office outpatient visit 15 minutes Blanca Sánchez TRANSMITTER TESTER-CONTINUITY COORDINATOR Work Phone: [facility] Comment on above: Atopic dermatitis, u nspecified type; Epidermal inclusion cyst; Neoplasm of unspecified behavior of bone, soft tissue, and skin; Sebaceous hyperplasia of face; Melanocytic nevus of trunk; Angioma of skin Start: 12-11-2023 [employer] [place] Blanca diaz TRANSMITTER TESTER-CONTINUITY COORDINATOR Work Phone: [facility] Start: 12-11-2023 [employer] [place] Blanca daiz TRANSMITTER TESTER-CONTINUITY COORDINATOR Work Phone: [facility] Start: 12-02-2023 End: 12-02-2023 ambulatory Cb Guerrero Other [employer] Other Start: 12-02-2023 Office outpatient vi sit 15 minutes Cb Guerrero [facility] Start: 10-23-2023 End: 10-23-2023 ambulatory Cb Guerrero Other [employer] Other Start: 10-23-2023 Office outpatient vi sit 15 minutes Cb Guerrero [facility] Start: 09-25-2023 End: 09-25-2023 ambulatory Cb Guerrero Other [employer] Other Start: 09-25-2023 Office outpatient vi sit 15 minutes Cb Guerrero [facility] Start: 08-26-2023 End: 08-26-2023 ambulatory Cb Guerrero Other [employer] Other Start: 08-26-2023 Office outpatient vi sit 15 minutes Cb Guerrero [facility] Start: 04-16-2023 End: 04-16-2023 ambulatory Cb Guerrero Other [employer] Other Start: 04-16-2023 Office outpatient vi sit 15 minutes Cb Guerrero [facility] Start: 03-25-2023 Encounter for genera l adult medical examination without abnormal findings DR CB GUERRERO [facility] Start: 03-23-2023 End: 03-24-[address] GUERRERO Facility:[facility]1 Start: 03-23-2023 End: 03-24-2023 Encounter for general adult medical examination without abnormal findings DR CB GUERRERO Facility:[facility] Start: 01-11-2023 End: 01-12-[address] VIOLETA BLACK Facility:[facility] Start: 11-20-2022 End: 11-20-2022 ambulatory Cb Guerrero Other [employer] Other Start: 11-20-2022 Office outpatient vi sit 15 minutes [facility] Start: 07-13-2022 End: 07-14-[address] VIOLETA BLACK Facility:[facility] Procedures Date Procedure Procedure Detail Performing Clinician Start: 12-11-2023 SKIN / NAIL BIOPSY Christie Sánchez TRANSMITTER TESTER-CONTINUITY COORDINATOR Work Phone: Start: 01-11-[address] KELLEN GUERRERO Comment on above: Performed By: #### P SAD #### [facility] [address] [place] [address] Dr. Carmen Schmidt Start: 07-13-[address] KELLEN GUERRERO Comment on above: Performed By: #### P SAD #### [facility] [address] [place] [address] Dr. Carmen Schmidt Start: 08-05-2019 Transrectal biopsy o f prostate using ultrasound guidance Violeta Loya Arthroscopy of knee with lateral meniscus repair Violeta Loya Comment on above: Right Plan of Treatment Date Care Activity Detail Author Start: 12-10-2024 End: 12-10-2024 Patient encounter procedure 12/10/2024 3:35 PM EST Office Visit [facility] [address] [place] [address] Blanca Sánchez TRANSMITTER TESTER-CONTINUITY COORDINATOR [address] [place] [address] [facility] Start: 12-11-2023 End: 12-11-2023 Patient encounter procedure 12/11/2023 3:40 PM EST Office Visit [facility] [address] [place] [id number] Blanca Sánchez, TRANSMITTER TESTER-CONTINUITY COORDINATOR [address] [place] [address] Arrived [facility] Comment on above: Arrived Start: 06-28-2023 Influenza vaccination Influenza Vaccine (#1) [facility] Start: 1970 Screening for malignant neoplasm of colon [facility] Dermatopathology exam Dermatopat hology exam Pathology and Cytology Timed Neoplasm of unspecified behavior of bone, soft tissue, and skin Release Upon Ordering for 1 Occurrences starting 12/11/2023 [facility] Work Phone: Comment on above: Release Upon Ordering for 1 Occurrences starting 12/11/2023 Immunizations Immunization Date Immunization Notes Care Provider Fa fei 01-24-2023 zoster vaccine recombinant Cb Guerrero Other [facility] 09-11-2022 zoster vaccine recombinant Cb Guerrero Other [facility] 09-11-2022 zoster vaccine, live Benjroberto janene Guerrero Other [facility] [employer] Other 07-12-2022 COVID-19 Vaccine Pfi zer - Documentation Purposes Only Cb Guerrero Other [employer] Other 07-12-2022 influenza virus vaccine, split virus (incl. purified surface antigen) Cb Guerrero Other [facility] [employer] Other 10-09-2021 COVID-19 Vaccine Pfi zer - Documentation Purposes Only Cb Guerrero Other [facility] 08-02-2021 influenza virus vaccine, split virus (incl. purified surface antigen) Cb Guerrero Other [facility] [employer] Other 02-07-2021 COVID-19 Vaccine Pfi zer - Documentation Purposes Only Cb Guerrero Other [facility] 01-16-2021 COVID-19 Vaccine Pfi zer - Documentation Purposes Only Cb Guerrero Other [facility] 09-13-2020 influenza virus vaccine, split virus (incl. 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 Phone: [facility] Payers Date Payer Category Payer Managed Care HMO (unspecified) [employer] A[employer]NA [id number] 2023-Present [address] [place] [address] HMO [id number] 2023 Private Health Insurance [id number] 1970 Unknown [id number] [id number] .593 1968 Unknown [id number] [id number] .593 1968 Unknown [id number] 2.16.840.1.618719.3.579.2 .59 1968 Unknown [id number] 2.16.840.1.595033.3.579.2 .1258 1968 Unknown [id number] 2.16.840.1.740838.3.579.2 .1258 1968 Unknown [id number] 2.16.840.1.153550.3.579.2 .125 1968 Unknown [id number] 2.16.840.1.247004.3.579.2 .1258 1968 Unknown [id number] 2.16.840.1.719994.3.579.2 .1259 1968 Unknown [id number] 2.16.840.1.255274.3.579.2 .1258 1968 Unknown [id number] 2.16.840.1.096325.3.579.2 .1259 1968 Unknown [id number] 2.16.840.1.002320.3.579.2 .727 1961 Private Health Insurance [id number] Private Health Insurance [id number] Social History Date Type Detail Facility Start: 12-11-2023 [facility] Assigned At [facility] Start: 11-18-2023 End: 03-05-2024 Tobacco smoking status NHIS Never smoked tobacco [facility] Start: 1970 Sex Assigned At Male [facility] Start: 03-23-2023 Gender identity Identifies as male gender (finding) [facility] Start: 03-23-2023 Sexual orientation Heterosexual (finding) [facility] Start: 12-11-2023 History of Social function [facility] Tobacco smoking status Never [facility] Functional Status Date Assessment Result Facility 03-05-2024 Functional Status N/A [facility] Clinical Notes 11-20-2022 to 03-05-2024 Blanca Sánchez, TRANSMITTER TESTER-CONTINUITY COORDINATOR - 12/11/2023 3:40 PM EST Note Date [...] numbers. This can be done either in [place] ([place] or metric measurements. Note that charts and online BMI calculators are available to help you find your BMI quickly and easily without having to do these calculations yourself. To calculate your BMI in [place] ([place] measurements: 1.Measure your weight in pounds [...] Centers for Disease Control and Prevention: www.cdc.gov [place] Heart Association: www.heart.org National Heart, Lung, and Blood [place]: www.nhlbi.nih.gov Summary Body mass index (BMI) is a number that is calculated from a person's weight and height. BMI may help estimate how much of a person's weight is composed of fat. BMI can help identify those who may be at higher risk for certain medical problems. BMI can be measured using Egyptian measurements or metric measurements. BMI charts are used to identify whether you are underweight, normal weight, overweight, or obese. This information is not intended to replace advice given to you by your health care provider. Make sure you discuss any questions you have with your health care provider. Document Revised: 07/06/2020 Document Reviewed: 05/13/2020 [employer] Patient Education 2022 [employer]. 03/05/2024 09:47:24 Cervical Sprain, [id number] Cervical Sprain A cervical sprain is also [...] Follow these instructions at home: Medicines Take stzg-yvz-zwvfese and prescription medicines only as told by your doctor. Ask your doctor if the medicine prescribed to you: ?Requires you to avoid driving or using heavy machinery. ?Can cause trouble pooping (constipation). You may need to take these actions to prevent or treat trouble pooping: ?Drink enough fluid to keep your pee (urine) pale yellow. ?Take ktlr-jhp-ywnkrof or prescription medicines. ?Eat foods that are [...] provider. Document Revised: 01/21/2023 Document Reviewed: 06/22/2020 [employer] Patient Education 2022 [employer]. [facility] 12-11-2023 History of Present illness [...] Visit: 1 year documented in this encounter [facility] 12-02-2023 Evaluation note Encounter Date Diagnosis Assessment Notes Nov, Other obesity due to excess calories (ICD-10 - E66.09) This patient is aware of the benefits associated with SAMUEL: With continued use, the patient reduces the risk for NE, CVA, HTN, cardiac dysrhythmias and sudden cardiac [...] ADR w/ stopping and starting medication: flushing [employer] Other 12-27-2023 Evaluation note* Encounter Date Diagnosis [...] No adverse effects from use of Adipex [employer] Other 11-29-2023 Evaluation note* Encounter Date Diagnosis [...] he denies CP, tremors, insomnia or palpitations [employer] Other 10-30-2023 Evaluation note* Encounter Date Diagnosis [...] develops chest pain, palpitations, tremors or insomnia. [employer] Other 06-20-2023 Evaluation note* Encounter Date Diagnosis [...] reaction to medication. Medication with therapeutic benefit [employer] Other 01-24-2023 Evaluation note* Encounter Date Diagnosis [...] Reassured, initiated drug treatment. Side effects discussed. [employer] Other Evaluation + Plan note No data available for this section [facility] Evaluation note* Diagnosis Atopic dermatitis, [...] COLONOSCOPY 2021 Hospitalization History SEE SURGICAL HX [employer] Other Progress note No data available for this section [facility] Summary Purpose Family History No [...] section and content) DATE CREATED AUTHOR 05/08/2022 [facility] DATE CREATED AUTHOR AUTHOR'S ORGANIZ ATION 04/05/2023 [facility] DATE CREATED AUTHOR AUTHOR'S ORGANIZ ATION 02/12/2024 [facility] EPIC DATE CREATED AUTHOR AUTHOR'S ORGANIZ ATION 03/07/2024 [facility] REASON FOR VISIT (unrecogniz ed section and content) Reason Comments Skin Check Patient Care team informatio n (unrecognized section and content) Personnel Name: CB GUERRERO DO Address: Address: [facility] FOR RECORDS PERTAINING TO PATIENTS WHO [...] BE BASED ON THE PRIMARY CLINICAL RECORDS. [facility] [employer] [facility]. provides no warranty or guarantee of the accuracy or completeness of information in this document.
[2024-08-29 09:53] LABS: Prostate Specific Antigen Dx <0.13 ng/mL (<=4.00)
== END 2024-08-29 07:56 | disposition home or self-care (01) ==
LOC: LAB 07:56
PROVIDERS: PCP Internal Medicine
DX: C61 Malignant neoplasm of prostate (principal)
CPT/HCPCS: 36415; 84153

== ENCOUNTER 2024-09-03 15:19 | Outpatient (OUT) | payer OTHER, SELFPAY ==
--- OUTSIDE RECORDS SUMMARY | 2024-09-03 15:38 | XMS_ITS | CCD ---
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 Name Role Phone Cb Guerrero Unavailable CESAR, [...] Attending Unavailable CB GUERRERO Primary Care Physician [phone] Violeta Loya Attending Unavailable Medications Current Medications [...] Bedtime, # 10 tab(s), Refills(s) 0, Pharmacy: [facility]/pharmacy #[id number], 172, cm, 03/05/24 9:18:00 EDT, [...] day(s), # 10 tab(s), Refills(s) 0, Pharmacy: [facility]/pharmacy #[id number], 172, cm, 03/05/24 9:18:00 EDT, [...] 12-11-2023 Episodic Other aftercare (5 sources) Other retirement (current) drug therapy Episodic Other and unspecified [...] At bedtime Sprain of neck Pickup at [facility]/pharmacy #[id number] New predniSONE (predniSONE 20 mg Tab) 2 Tablets By Mouth Every day Sprain of neck Duration: 5 Days Pickup at [facility]/pharmacy #[id number] Unchanged Non-Formulary Medication (Misc Medication) See instructions Unchanged rosuvastatin (rosuvastatin 20 mg Tab) Pharmacy Information [facility]/pharmacy #[id number]: [address] [place], [place] [id number] [phone] Allergies No Known Allergies Problems Ongoing - [...] for choosing us for your care. Normal [facility] Family Medicine Office/Clini c Noteon 03-05-2024 Family Medicine Office/Clinic Note Chief Complaint neck pain HPI Staff 53 year old male presents with neck pain since saturday. Patient was playing golf and felt pain on right shoulder after a swing. Pain is radiating to neck. Limited range of motion. History of Present Illness Reviewed and agree with above documented HPI by medical staffing coordinator. Patient is a 53-year-old male who presents [...] Bedtime, # 10 tab(s), Refills(s) 0, Pharmacy: [facility]/pharmacy #[id number], 172, cm, 03/05/24 9:18:00 EDT, Height/Length Dosing, 104.5, kg, 03/05/24 9:18:00 EDT, Weight Dosing predniSONE, 40 mg = 2 tab(s), Oral, Daily, X 5 day(s), # 10 tab(s), Refills(s) 0, Pharmacy: [facility]/pharmacy #[id number], 172, cm, 03/05/24 9:18:00 EDT, [...] with voice recognition artificial intelligence software, specifically [employer], [employer] and or Plazes (more content not included)... Normal [facility] Comment on above: Result Comment: Elec [...] numbers. This can be done either in [place] or metric measurements. Note that charts and online BMI calculators are available to help you find your BMI quickly and easily without having to do these calculations yourself. To calculate your BMI in [place] ([place] measurements: 1. Measure your weight in [...] for Disease Control and Prevention: www.cdc.gov ? [place] Heart Association: www.heart.org ? National Heart, Lung, and Blood Wall[place]: www.nhlbi.nih.gov Summary ? Body mass index (BMI) is a number that is calculated from a person's weight and height. ? BMI may help estimate how much of a person's weight is composed of fat. BMI can help identify those who may be at higher risk for certain medical problems. ? BMI can be measured using [place] measurements or metric measurements. ? BMI charts are used to identify whether you are underweight, normal weight, overweight, or obese. This information is not intended to replace advice given to you by your health care provider. Make sure you discuss any questions you have with your health care provider. Document Revised: 07/06/2020 Document Reviewed: 05/13/2020 [employer] Patient Education ? 2022 [employer] Orthopedics Cervical Sprain A cervical sprain [...] a vehicle (more content not included)... Normal [facility] Patient Letter FTon 2023 Patient Letter [facility] [address] [place] [address] March 05, 2024 VISHAL MACHADO [address] [place] [address] [place] [address] : 1970 Please excuse VISHAL MACHADO from work . He was being seen at [facility]. May return to work on: 03/05/2024 Restrictions: None Comments: Please excuse due to an acute illness. Provider Signature: Violeta Loya CNP [address] [place] [address] [place] [address] Normal [facility] MR KNEE LEFT WO IV CONTRASTo [...] yes Amount of lidocaine used: 0.5 cc [facility] Fusion Dynamic [facility] CBC AUTO DIFFon 03-23-2023 BASO # 0.0 103/ul Normal 0.0-0.1 [facility] Comment on above: Performed By: #### C BC #### [facility] [address] [place] [address] Dr. Carmen Schmidt Basophils/100 WBC (Bld) 0.8 % Normal 0.2-2.0 [facility] Comment on above: Performed By: #### C BC #### [facility] [address] [place] [address] Dr. Carmen Schmidt EO # 0.1 103/ul Normal 0.0-0.7 [facility] Comment on above: Performed By: #### C BC #### [facility] [address] [place] [address] Dr. Carmen Schmidt Eosinophils/100 WBC (Bld) 2.2 % Normal 0.9-7.0 [facility] Comment on above: Performed By: #### C BC #### [facility] [address] [place] [address] Dr. Carmen Schmidt Erythrocyte distribution width (RBC) [Ratio] 13.2 % Normal 11.0-15.0 [facility] Comment on above: Performed By: #### C BC #### [facility] [address] [place] [address] Dr. Carmen Schmidt Hematocrit (Bld) [Volume fraction] 41.0 % Critically low 42.0-54.0 [facility] Comment on above: Performed By: #### C BC #### [facility] [address] [place] [address] Dr. Carmen Schmidt Hemoglobin (Bld) [Mass/Vol] 14.7 g/dL Normal 14.0-18.0 [facility] Comment on above: Performed By: #### C BC #### [facility] [address] [place] [address] Dr. Carmen Schmidt IG # 0.04 10e3/ul Critically high 0.00-0.03 [facility] Comment on above: Performed By: #### C BC #### [facility] [address] [place] [address] Dr. Carmen Schmidt IG % 0.8 % Critically high 0.0-0.5 [facility] Comment on above: Performed By: #### C BC #### [facility] [address] [place] [address] Dr. Carmen Schmidt LYMPH # 1.9 103/ul Normal 1.2-3.8 [facility] Comment on above: Performed By: #### C BC #### [facility] [address] [place] [address] Dr. Carmen Schmidt Lymphocytes/100 WBC (Bld) 37.0 % Normal 20.5-60.0 [facility] Comment on above: Performed By: #### C BC #### [facility] [address] [place] [address] Dr. Carmen Schmidt MANUAL DIFF REQ NO Normal [facility] Comment on above: Performed By: #### C BC #### [facility] [address] [place] [address] Dr. Carmen Schmidt MCH (RBC) [Entitic mass] 30.4 pg Normal 25.9-34.0 [facility] Comment on above: Performed By: #### C BC #### [facility] [address] [place] [address] Dr. Carmen Schmidt MCHC (RBC) [Mass/Vol] 35.9 g/dL Critically high 29.9-35.2 [facility] Comment on above: Performed By: #### C BC #### [facility] [address] [place] [address] Dr. Carmen Schmidt MCV (RBC) [Entitic vol] 84.9 fL Normal 80.0-94.0 [facility] Comment on above: Performed By: #### C BC #### [facility] [address] [place] [address] Dr. Carmen Schmidt MONO # 0.6 103/ul Normal 0.3-0.8 [facility] Comment on above: Performed By: #### C BC #### [facility] [address] [place] [address] Dr. Carmen Schmidt Monocytes/100 WBC (Bld) 11.9 % Normal 1.7-12.0 [facility] Comment on above: Performed By: #### C BC #### [facility] [address] [place] [address] Dr. Carmen Schmidt NEUT # 2.4 103/ul Normal 1.4-6.5 [facility] Comment on above: Performed By: #### C BC #### [facility] [address] [place] [address] Dr. Carmen Schmidt Neutrophils/100 WBC (Bld) 47.3 % Normal 43.0-75.0 [facility] Comment on above: Performed By: #### C BC #### [facility] [address] [place] [address] Dr. Carmen Schmidt Platelet mean volume (Bld) [Entitic vol] 9.5 fL Normal 9.5-13.5 [facility] Comment on above: Performed By: #### C BC #### [facility] [address] [place] [address] Dr. Carmen Schmidt PLT 223 103/ul Normal 150-450 [facility] Comment on above: Performed By: #### C BC #### [facility] [address] [place] [address] Dr. Carmen Schmidt RBC 4.83 106/ul Normal 4.70-6.10 [facility] Comment on above: Performed By: #### C BC #### [facility] [address] [place] [address] Dr. Carmen Schmidt WBC 5.0 103/ul Normal 4.0-11.0 [facility] Comment on above: Performed By: #### C BC #### [facility] [address] [place] [address] Dr. Carmen Schmidt LIPID PROFILEon 03-23-2023 CHOL-HDL RATIO NORM SEE BELOW Normal [facility] Comment on above: Result Comment: 3.3 - 4.4 LOW RISK 4.4 - 7.1 AVERAGE RISK 7.1 - 11.0 MODERATE RISK >11.0 HIGH RISK Performed By: #### C MP, LIPID #### [facility] [address] [place] [address] Dr. Carmen Schmidt Cholesterol [Mass/Vol] 108 mg/dL Normal <=200 [facility] Comment on above: Performed By: #### C MP, LIPID #### [facility] [address] [place] [address] Dr. Carmen Schmidt Cholesterol in HDL [Mass/Vol] 35 mg/dL Critically low 40-60 [facility] Comment on above: Performed By: #### C MP, LIPID #### [facility] [address] [place] [address] Dr. Carmen Schmidt Cholesterol in LDL [Mass/Vol] 60.4 mg/dL Normal [facility] Comment on above: Performed By: #### C MP, LIPID #### [facility] [address] [place] [address] Dr. Carmen Schmidt Cholesterol.total/ Cholesterol in HDL [Mass ratio] 3.1 {ratio} Normal [facility] Comment on above: Performed By: #### C MP, LIPID #### [facility] [address] [address] [address] Carmen Schmidt HDL NORMAL > or = 60 mg/dl - LO W CARDIOVASCULAR RISK <40 mg/dl - HIGH CARDIOVASCULAR RISK Normal [facility] Comment on above: Performed By: #### C MP, LIPID #### [facility] [address] [address] [address] Carmen Schmidt LDL CALC NORMAL SEE BELOW Normal [facility] Comment on above: Result Comment: <100 mg/dl OPTIMAL 100 - 129 mg/dl NEAR OR ABOVE OPTIMAL 130 - 159 mg/dl BORDERLINE HIGH 160 - 189 mg/dl HIGH >190 mg/dl VERY HIGH Performed By: #### C MP, LIPID #### [facility] [address] [address] [address] Carmen Schmidt Triglyceride [Mass/Vol] 63 mg/dL Normal <=150 [facility] Comment on above: Performed By: #### C MP, LIPID #### [facility] [address] [address] [address] Carmen Schmidt VLDL CALC 12.6 mg/dL Normal [facility] Comment on above: Performed By: #### C MP, LIPID #### [facility] [address] [address] [address] Carmen Schimdt PROF 14(COMP METB)on 023 Albumin [Mass/Vol] 4.3 g/dL Normal 3.4-5.0 [facility] Comment on above: Performed By: #### C MP, LIPID #### [facility] [address] [address] [address] Carmen Schmidt Albumin/Globulin [Mass ratio] 1.5 {ratio} Normal [facility] Comment on above: Performed By: #### C MP, LIPID #### [facility] [address] [address] [address] Carmen Schmidt ALP [Catalytic activity/Vol] 69 U/L Normal 46-116 [facility] Comment on above: Performed By: #### C MP, LIPID #### [facility] [address] [address] [address] Carmen Schmidt ALT [Catalytic activity/Vol] 31 U/L Normal 16-63 [facility] Comment on above: Performed By: #### C MP, LIPID #### [facility] [address] [address] [address] Carmen Schmidt Anion gap [Moles/Vol] 15.7 mmol/L Normal [facility] Comment on above: Performed By: #### C MP, LIPID #### [facility] [address] [address] [address] Carmen Schmidt AST [Catalytic activity/Vol] 17 U/L Normal 15-37 [facility] Comment on above: Performed By: #### C MP, LIPID #### [facility] [address] [place] [address] Dr. Carmen Schmidt Bilirubin [Mass/Vol] 0.6 mg/dL Normal 0.2-1.0 [facility] Comment on above: Performed By: #### C MP, LIPID #### [facility] [address] [address] [address] Carmen Schmidt Calcium [Mass/Vol] 8.9 mg/dL Normal 8.5-10.1 [facility] Comment on above: Performed By: #### C MP, LIPID #### [facility] [address] [address] [address] Carmen Schmidt Chloride [Moles/Vol] 106 mmol/L Normal 98-107 [facility] Comment on above: Performed By: #### C MP, LIPID #### [facility] [address] [address] [address] Carmen Schmidt CO2 [Moles/Vol] 26.2 mmol/L Normal 21.0-32.0 [facility] Comment on above: Performed By: #### C MP, LIPID #### [facility] [address] [address] [address] Carmen Schmidt Creatinine [Mass/Vol] 0.70 mg/dL Normal 0.70-1.30 [facility] Comment on above: Performed By: #### C MP, LIPID #### [facility] [address] [address] [address] Carmen Schmidt EGFR-AF BULGARIAN >60 Normal >=60 [facility] Comment on above: Performed By: #### C MP, LIPID #### [facility] [address] [address] [address] Carmen Schmidt EGFR-NON AF BULGARIAN >60 Normal >=60 [facility] Comment on above: Performed By: #### C MP, LIPID #### [facility] [address] [address] [address] Carmen Schmidt Globulin (S) [Mass/Vol] 2.9 g/dL Normal [facility] Comment on above: Performed By: #### C MP, LIPID #### [facility] [address] [place] [address] Dr. Carmen Schmidt Glucose [Mass/Vol] 103 mg/dL Normal 74-106 [facility] Comment on above: Performed By: #### C MP, LIPID #### [facility] [address] [address] [address] Caremn Schmidt Potassium [Moles/Vol] 4.9 mmol/L Normal 3.5-5.1 [facility] Comment on above: Performed By: #### C MP, LIPID #### [facility] [address] [address] [address] Carmen Schmidt Protein [Mass/Vol] 7.2 g/dL Normal 6.4-8.2 [facility] Comment on above: Performed By: #### C MP, LIPID #### [facility] [address] [address] [address] Carmen Schmidt Sodium [Moles/Vol] 143 mmol/L Normal 136-145 [facility] Comment on above: Performed By: #### C MP, LIPID #### [facility] [address] [address] [address] Carmen Schmidt Urea nitrogen [Mass/Vol] 9.0 mg/dL Normal 7.0-18.0 [facility] Comment on above: Performed By: #### C MP, LIPID #### [facility] [address] [place], [place] [address] Dr. Carmen Schmidt Urea nitrogen/Creatinin e [Mass ratio] 12.9 mg/mg Normal [facility] Comment on above: Performed By: #### C MP, LIPID #### [facility] [address] [place], [place] [address] Dr. Carmen Singh 05-03-2022 L --- Specimen: [id number] Received: 05/03/22 Status: ANA M Holdertara Num: [id number] Spec Type: Surgical Subm Dr: Francisco Coleman MD Tissues: A Colon - Polyp (ASCENDING POLYP) B Colon Biopsy (SIGMOID) C Colon - Polyp (SIGMOID POLYP) Procedures: HE Stain/6, Gross/Micro L4/3 Patient Age/Sex Location Account Attending Physician Vishal Machado/Martha [id number] Francisco Coleman MD SPEC NUM: [id number] RECD: 05/03/22 STATUS: ANA M HOLDERTara NUM: [id number] SUDHAKAR: 05/03/22- SUBM DR: Francisco Coleman MD ENTERED: 05/03/[address] [facility] [address]: SPEC TYPE: Surgical DEPT: S ORDERED: [...] number and polyp sigmoid are two Specimen: [id number] Received: 05/03/22 Status: ANA M Claire Num: [id number] Spec Type: Surgical Subm Dr: Francisco Coleman MD Tissues: A Colon - Polyp (ASCENDING POLYP) B Colon Biopsy (SIGMOID) C Colon - Polyp (SIGMOID POLYP) Procedures: HE Stain/6, Gross/Micro L4/3 Patient: Vishal Machado [id number] (Continued) Specimen: [id number] Received: 05/03/22 (Continued) Gross Description (Continued) Signed (signature on file) Lois Chong MD 05/04/22 1534 Specimen: [id number] Received: 05/03/22 Status: ANA M Rangel Num: [id number] Spec Type: Surgical Subm Dr: Francisco Coleman MD Tissues: A Colon - Polyp (ASCENDING POLYP) B Colon Biopsy (SIGMOID) C Colon - Polyp (SIGMOID POLYP) Procedures: HE Stain/6, Gross/Micro L4/3 Patient: Vishal Machado [id number] (Continued) Specimen: [id number] Received: 05/03/22 (Continued) Gross Description (Continued) fragments [...] support the above pathologic diagnosis. CPT Codes 54042?3 Specimen: [id number] Received: 05/03/22 Status: ANA M Rangel Num: [id number] Spec Type: Surgical Subm Dr: Francisco Coleman MD Tissues: A Colon - Polyp (ASCENDING POLYP) B Colon Biopsy (SIGMOID) C Colon - Polyp (SIGMOID POLYP) Procedures: HE Stain/6, Gross/Micro L4/3 Patient: Vishal Machado Umu [id number] (Continued) Signed (signature on file) Lois Chong MD 05/04/[address] [facility] COVID-19 Antigenon 2 COVID-19 Antigen Healthcare Worker?: [...] developed and its performance characteristic determined by [facility] and validated at [facility]. This test has not been FDA cleared [...] Rapid immunoassay Negative for SARS Antigen by [facility] PERFORMED BY: [place] [address] PATHOLOGIST AMMUNITION ASSEMBLY I LABORER LAKHWINDER REYES M.D. [facility] Comment on above: Performed By: #### S RADHA COVID-19 MINAL #### [facility] [address] [place] [address] Minal Ag Negativeon 05-01-20 Minal Ag Negative Negative Normal Negative [facility] Comment on above: Result Comment: This is a duplicate Minal SARS Antigen (CINDA) result to be used for statistical tracking purpose only. PERFORMED BY: [place] [address] PATHOLOGIST AMMUNITION ASSEMBLY I LABORER LAKHWINDER REYES M.D. Performed By: #### S RADHA COVID-19 MINAL #### [facility] [address] [place] [address] Vital Signs Date Time Vital Sign Value Performing Clinician Facility 03-05-2024 09:15-0400 Blood Pressure Location [facility] 03-05-2024 09:15-0400 Body temperature 97.7 [degF] [facility] 03-05-2024 09:15-0400 Diastolic blood pressure 102 mm[Hg] [facility] 03-05-2024 09:15-0400 Heart rate 93 /min Violeta Loya [facility] 03-05-2024 09:15-0400 SaO2% (BldA) [Mass fraction] 97 % [facility] 03-05-2024 09:15-0400 Systolic blood pressure 144 mm[Hg] [facility] 12-02-2023 14:30-0500 Body height 172.72 cm Cb [facility] Other [facility] [employer] Other 12-02-2023 14:30-0500 Body mass index (BMI) [Ratio] 34.15 kg/m2 Cb Ball Other [employer] Other 12-02-2023 14:30-0500 Body weight 101.88 kg Cb Ball Other [employer] Other 12-02-2023 14:30-0500 Diastolic blood pressure 78 mm[Hg] Cb Ball Other [employer] Other 12-02-2023 14:30-0500 Respiratory rate 12 /min Cb Ball Other [employer] Other 12-02-2023 14:30-0500 Systolic blood pressure 136 mm[Hg] Cb Ball Other [employer] Other 10-23-2023 15:00-0500 Body height 172.72 cm Cb Ball Other [employer] Other 10-23-2023 15:00-0500 Body mass index (BMI) [Ratio] 34.88 kg/m2 Cb Ball Other [employer] Other 10-23-2023 15:00-0500 Body weight 104.06 kg Cb Ball Other [employer] Other 10-23-2023 15:00-0500 Diastolic blood pressure 92 mm[Hg] Cb Ball Other [employer] Other 10-23-2023 15:00-0500 Respiratory rate 12 /min Cb Ball Other [employer] Other 10-23-2023 15:00-0500 Systolic blood pressure 152 mm[Hg] Cb Ball Other [employer] Other 09-25-2023 15:30-0500 Body height 172.72 cm Cb Ball Other [employer] Other 09-25-2023 15:30-0500 Body mass index (BMI) [Ratio] 34.3 kg/m2 Cb Ball Other [employer] Other 09-25-2023 15:30-0500 Body weight 102.33 kg Cb Ball Other [employer] Other 09-25-2023 15:30-0500 Diastolic blood pressure 91 mm[Hg] Cb Ball Other [employer] Other 09-25-2023 15:30-0500 Respiratory rate 12 /min Cb Ball Other [employer] Other 09-25-2023 15:30-0500 Systolic blood pressure 142 mm[Hg] Cb Ball Other [employer] Other 08-26-2023 14:30-0400 Body height 172.72 cm Cb Ball Other [employer] Other 08-26-2023 14:30-0400 Body mass index (BMI) [Ratio] 35.55 kg/m2 Cb Ball Other [employer] Other 08-26-2023 14:30-0400 Body weight 106.05 kg Cb Ball Other [employer] Other 08-26-2023 14:30-0400 Diastolic blood pressure 86 mm[Hg] Cb Ball Other [employer] Other 08-26-2023 14:30-0400 Respiratory rate 12 /min Cb Ball Other [employer] Other 08-26-2023 14:30-0400 Systolic blood pressure 138 mm[Hg] Cb Ball Other [employer] Other 04-16-2023 14:15-0400 Body height 172.72 cm Cb Ball Other [employer] Other 04-16-2023 14:15-0400 Body mass index (BMI) [Ratio] 33.63 kg/m2 Cb Ball Other [employer] Other 04-16-2023 14:15-0400 Body weight 100.34 kg Cb Ball Other [employer] Other 04-16-2023 14:15-0400 Diastolic blood pressure 82 mm[Hg] Cb Ball Other [employer] Other 04-16-2023 14:15-0400 Respiratory rate 12 /min Cb Ball Other [employer] Other 04-16-2023 14:15-0400 Systolic blood pressure 132 mm[Hg] Cb Ball Other [employer] Other 11-20-2022 15:00-0500 Body height 172.72 cm Cb Ball Other [employer] Other 11-20-2022 15:00-0500 Body mass index (BMI) [Ratio] 37.43 kg/m2 Cb Ball Other [employer] Other 11-20-2022 15:00-0500 Body weight 111.68 kg Cb Ball Other [employer] Other 11-20-2022 15:00-0500 Diastolic blood pressure 82 mm[Hg] Cb Ball Other [employer] Other 11-20-2022 15:00-0500 Respiratory rate 12 /min Cb Ball Other [employer] Other 11-20-2022 15:00-0500 Systolic blood pressure 132 mm[Hg] Cb Ball Other [employer] Other Encounters Encounter Date Encounter Type Care Provider Facility Start: 03-05-2024 End: 03-06-2024 ambulatory Violeta Loya Facility:[facility] Start: 03-05-2024 End: 03-05-2024 Patient encounter procedure Violeta Loya [facility] Start: 02-11-2024 End: 02-11-2024 ambulatory [...] Office outpatient visit 15 minutes Blanca Sánchez FINANCIAL PLANNING ANALYST-RETAIL COORDINATOR Work Phone: [facility] Comment on above: Atopic dermatitis, u nspecified type; Epidermal inclusion cyst; Neoplasm of unspecified behavior of bone, soft tissue, and skin; Sebaceous hyperplasia of face; Melanocytic nevus of trunk; Angioma of skin Start: 12-11-2023 [employer] Blanca diaz FINANCIAL PLANNING ANALYST-RETAIL COORDINATOR Work Phone: [facility] Start: 12-11-2023 [employer] Blanca diaz FINANCIAL PLANNING ANALYST-RETAIL COORDINATOR Work Phone: [facility] Start: 12-02-2023 End: 12-02-2023 ambulatory Cb Guerrero Other [employer] Other Start: 12-02-2023 Office outpatient vi sit 15 minutes Cb Guerrero [facility] Start: 10-23-2023 End: 10-23-2023 ambulatory Cb Guerrero Other [employer] Other Start: 10-23-2023 Office outpatient vi sit 15 minutes Cb Guerrero [facility] Start: 09-25-2023 End: 09-25-2023 ambulatory Cb Guerrero Other [facility] Other Start: 09-25-2023 Office outpatient vi sit 15 minutes Cb Guerrero [facility] Start: 08-26-2023 End: 08-26-2023 ambulatory Cb Guerrero Other [facility] Other Start: 08-26-2023 Office outpatient vi sit 15 minutes Cb Guerrero [facility] Start: 04-16-2023 End: 04-16-2023 ambulatory Cb Guerrero Other [facility] Other Start: 04-16-2023 Office outpatient vi sit 15 minutes Cb Guerrero [facility] Start: 03-25-2023 Encounter for genera l adult medical examination without abnormal findings DR CB GUERRERO [facility] Start: 03-23-2023 End: 03-24-[address] CB GUERRERO Facility:[facility] Start: 03-23-2023 End: 03-24-2023 Encounter for general adult medical examination without abnormal findings DR CB GUERRERO Facility:[facility] Start: 01-11-2023 End: 01-12-[address] VIOLETA BLACK Facility:[facility] Start: 11-20-2022 End: 11-20-2022 ambulatory Cb Guerrero Other [employer] Other Start: 11-20-2022 Office outpatient vi sit 15 minutes C[facility] Start: 07-13-2022 End: 07-14-[address] VIOLETA BLACK Facility:[facility] Procedures Date Procedure Procedure Detail Performing Clinician Start: 12-11-2023 SKIN / NAIL BIOPSY Christie Sánchez FINANCIAL PLANNING ANALYST-RETAIL COORDINATOR Work Phone: Start: 01-11-[address] KELLEN GUERRERO Comment on above: Performed By: #### P SAD #### [facility] [address] [place] [address] Dr. Carmen Schmidt Start: 07-13-[address] KELLEN GUERRERO Comment on above: Performed By: #### P SAD #### [facility] [address] [place] [address] Dr. Carmen Schmidt Start: 08-05-2019 Transrectal biopsy o f prostate using ultrasound guidance Violeta Loya Arthroscopy of knee with lateral meniscus repair Violeta Loya Comment on above: Right Plan of Treatment Date Care Activity Detail Author Start: 12-10-2024 End: 12-10-2024 Patient encounter procedure 12/10/2024 3:35 PM EST Office Visit [facility] [address] [place] [address] Blanca Sánchez FINANCIAL PLANNING ANALYST-RETAIL COORDINATOR [address] [place] [address] [facility] Start: 12-11-2023 End: 12-11-2023 Patient encounter procedure 12/11/2023 3:40 PM EST Office Visit [facility] [address] [place] [phone] Blanca Sánchez, FINANCIAL PLANNING ANALYST-RETAIL COORDINATOR [address] [place] [address] Arrived [facility] Comment on above: Arrived Start: 06-28-2023 Influenza vaccination Influenza Vaccine (#1) [facility] Start: 1970 Screening for malignant neoplasm of colon [facility] Dermatopathology exam Dermatopat hology exam Pathology and Cytology Timed Neoplasm of unspecified behavior of bone, soft tissue, and skin Release Upon Ordering for 1 Occurrences starting 12/11/2023 [facility] Work Phone: Comment on above: Release Upon Ordering for 1 Occurrences starting 12/11/2023 Immunizations Immunization Date Immunization Notes Care Provider Fa fei 01-24-2023 zoster vaccine recombinant Cb Guerrero Other [facility] 09-11-2022 zoster vaccine recombinant Cb Guerrero Other [facility] 09-11-2022 zoster vaccine, live Benjroberto janene Guerrero Other [facility] [employer] Other 07-12-2022 COVID-19 Vaccine Pfi zer - Documentation Purposes Only Cb Guerrero Other [employer] Other 07-12-2022 influenza virus vaccine, split virus (incl. purified surface antigen) Cb Guerrero Other [facility] [employer] Other 10-09-2021 COVID-19 Vaccine Pfi zer - Documentation Purposes Only Cb Guerrero Other [facility] 08-02-2021 influenza virus vaccine, split virus (incl. purified surface antigen) Cb Guerrero Other [facility] [employer] Other 02-07-2021 COVID-19 Vaccine Pfi zer - Documentation Purposes Only Cb Guerrero Other [facility] 01-16-2021 COVID-19 Vaccine Pfi zer - Documentation Purposes Only Cb Guerrero Other [facility] 09-13-2020 influenza virus vaccine, split virus (incl. purified surface antigen) Cb Cesar Other [facility] Other 09-13-2020 influenza virus vaccine, unspecified formulation Blanca Sánchez FINANCIAL PLANNING ANALYST-RETAIL COORDINATOR Work Phone: [facility] Payers Date Payer Category Payer Managed Care HMO (unspecified) AETNA AETNA [id number] 2023-Present [address] [place] [address] HMO [id number] 2023 Private Health Insurance [id number] 1970 Unknown [id number] .593 1968 Unknown [id number] [id number] .593 1968 Unknown [id number] [id number] .59 1968 Unknown [id number] [id number] .1258 1968 Unknown [id number] 2.16.840.1.735557.3.579.2 .1258 1968 Unknown [id number] 2.16.840.1.615216.3.579.2 .125 1968 Unknown [id number] 2.16.840.1.565064.3.579.2 .1258 1968 Unknown [id number] 2.16.840.1.229042.3.579.2 .1259 1968 Unknown [id number] 2.16.840.1.713781.3.579.2 .1258 1968 Unknown [id number] 2.16.840.1.748095.3.579.2 .1259 1968 Unknown [id number] [id number] .727 1961 Private Health Insurance [id number] Private Health Insurance [id number] Social History Date Type Detail Facility Start: 12-11-2023 Sex Assigned At [facility] Start: 11-18-2023 End: 03-05-2024 Tobacco smoking status NHIS Never smoked tobacco [facility] Start: 1970 Sex Assigned At Male [facility] Start: 03-23-2023 Gender identity Identifies as male gender (finding) [facility] Start: 03-23-2023 Sexual orientation Heterosexual (finding) [facility] Start: 12-11-2023 History of Social function [facility] Tobacco smoking status Never [facility] Functional Status Date Assessment Result Facility 03-05-2024 Functional Status N/A [facility] Clinical Notes 11-20-2022 to 03-05-2024 Blanca Sánchez, FINANCIAL PLANNING ANALYST-RETAIL COORDINATOR - 12/11/2023 3:40 PM EST Note [...] numbers. This can be done either in [place] or metric measurements. Note that charts and online BMI calculators are available to help you find your BMI quickly and easily without having to do these calculations yourself. To calculate your BMI in [place] measurements: 1.Measure your weight in pounds [...] Centers for Disease Control and Prevention: www.cdc.gov [place] Heart Association: www.heart.org National Heart, Lung, and Blood [place]: www.nhlbi.nih.gov Summary Body mass index (BMI) is a number that is calculated from a person's weight and height. BMI may help estimate how much of a person's weight is composed of fat. BMI can help identify those who may be at higher risk for certain medical problems. BMI can be measured using [place] measurements or metric measurements. BMI charts are used to identify whether you are underweight, normal weight, overweight, or obese. This information is not intended to replace advice given to you by your health care provider. Make sure you discuss any questions you have with your health care provider. Document Revised: 07/06/2020 Document Reviewed: 05/13/2020 [employer] Patient Education 2022 [employer]. 03/05/2024 09:47:24 Cervical Sprain, Bhlc-[id number] Cervical Sprain A cervical sprain is also [...] Follow these instructions at home: Medicines Take slsx-lhb-tuuvzdg and prescription medicines only as told by your doctor. Ask your doctor if the medicine prescribed to you: ?Requires you to avoid driving or using heavy machinery. ?Can cause trouble pooping (constipation). You may need to take these actions to prevent or treat trouble pooping: ?Drink enough fluid to keep your pee (urine) pale yellow. ?Take rnhw-[id number]-[id number] or prescription medicines. ?Eat foods that are [...] provider. Document Revised: 01/21/2023 Document Reviewed: 06/22/2020 [employer] Patient Education 2022 [employer]. [facility] 12-11-2023 History of Present illness [...] Visit: 1 year documented in this encounter [facility] 12-02-2023 Evaluation note Encounter Date Diagnosis Assessment Notes Nov, Other obesity due to excess calories (ICD-10 - E66.09) This patient is aware of the benefits associated with SAMUEL: With continued use, the patient reduces the risk for ND, CVA, HTN, cardiac dysrhythmias and sudden cardiac [...] ADR w/ stopping and starting medication: flushing [facility] Other 12-27-2023 Evaluation note* Encounter Date Diagnosis [...] No adverse effects from use of Adipex [employer] Other 11-29-2023 Evaluation note* Encounter Date Diagnosis [...] he denies CP, tremors, insomnia or palpitations [employer] Other 10-30-2023 Evaluation note* Encounter Date Diagnosis [...] develops chest pain, palpitations, tremors or insomnia. [facility] Other 06-20-2023 Evaluation note* Encounter Date Diagnosis [...] reaction to medication. Medication with therapeutic benefit [facility] Other 01-24-2023 Evaluation note* Encounter Date Diagnosis [...] Reassured, initiated drug treatment. Side effects discussed. [employer] Other Evaluation + Plan note No data available for this section [facility] Evaluation note* Diagnosis Atopic dermatitis, [...] COLONOSCOPY 2021 Hospitalization History SEE SURGICAL HX [employer] Other Progress note No data available for this section [facility] Summary Purpose Family History No [...] section and content) DATE CREATED AUTHOR 05/08/2022 [facility] DATE CREATED AUTHOR AUTHOR'S ORGANIZ ATION 04/05/2023 [facility] DATE CREATED AUTHOR AUTHOR'S ORGANIZ ATION 02/12/2024 [facility] EPIC DATE CREATED AUTHOR AUTHOR'S ORGANIZ ATION 03/07/2024 [facility] REASON FOR VISIT (unrecogniz ed section and content) Reason Comments Skin Check Patient Care team informatio n (unrecognized section and content) Personnel Name: CB GUERRERO DO Address: Address: [facility] [address] FOR RECORDS PERTAINING TO PATIENTS WHO [...] BE BASED ON THE PRIMARY CLINICAL RECORDS. [facility]. provides no warranty or guarantee of the accuracy or completeness of information in this document.
[2024-09-03 15:41] LABS: Basophils Percent Auto 0.6 % (0.2-2.0); Eosinophils Absolute Auto 0.1 10^3/uL (0.0-0.7); Hemoglobin 13.6 g/dL (14.0-18.0); Immature Granulocytes Abs Auto 0.03 10^3/uL (0.00-0.03); Immature Granulocytes Pct Auto 0.6 % (0.0-0.5); Lymphocytes Absolute Auto 2.2 10^3/uL (1.2-3.8); Lymphocytes Percent Auto 41.5 % (20.5-60.0); Mean Corpuscular HGB Conc 35.8 g/dL (29.9-35.2); Mean Corpuscular Hemoglobin 31.1 pg (25.9-34.0); Mean Platelet Volume 9.4 fL (9.5-13.5); Monocytes Absolute Auto 0.6 10^3/uL (0.3-0.8); Monocytes Percent Auto 10.6 % (1.7-12.0); Neutrophils Absolute Auto 2.4 10^3/uL (1.4-6.5); Neutrophils Percent Auto 44.7 % (43.0-75.0); Platelet Count 216 10^3/uL (150-450); Red Blood Count 4.37 10^6/uL (4.70-6.10); Red Cell Distribution Width 13.8 % (11.0-15.0); White Blood Count 5.4 10^3/uL (4.0-11.0)
[2024-09-03 16:13] LABS: Percent Iron Saturation 32.8 %
[2024-09-05 08:13] LABS: Vitamin B12 701 pg/mL (232-1245)
== END 2024-09-03 15:20 | disposition home or self-care (01) ==
LOC: LAB 15:20
PROVIDERS: PCP Internal Medicine; Visit Provider Internal Medicine
DX: D64.9 Anemia, unspecified (principal)
CPT/HCPCS: 36415; 82607; 82728; 82746; 83540; 83550; 85025

== ENCOUNTER 2025-03-17 15:08 | Outpatient (OUT) | payer OTHER, SELFPAY ==
--- OUTSIDE RECORDS SUMMARY | 2025-03-17 15:13 | XMS_ITS | CCD ---
Author Organization [facility] Care Team Providers Care Art Sales Consultant Name Role Phone Cb Guerrero Unavailable CESAR, [...] Santos Admitting Unavailable Unavailable Primary Care Provider UnavailCB Tejada Primary Care Physician Violeta Loya Attending Unavailable Cb Guerrero DO Primary Care Provider Cb Guerrero MD Primary Care Provider BLANCA SÁNCHEZ Attending Unavailable APLING, KATIE Ordoñez Attending Unavailable APLINGKATIE Referring Unavailable APLINGKATIE Attending Unavailable PETITTJAIME Bingham Attending Unavailable APLING, KATIE Ordoñez Referring Unavailable LANCE GALICIA Attending Unavailable Medications Current Medications Medication Drug Class(es) Dates Sig (Normalized) Sig (Original) cyclobenzaprine hydrochloride 5 mg oral tablet (1 source) Muscle Relaxant Start: 03-05-2024 take 1 tablet by mouth at bedtime cyclobenzaprine 5 mg Tab 5 mg = 1 tab(s), Oral, Bedtime, # 10 tab(s), Refills(s) 0, Pharmacy: [facility]/pharmacy #[id number], 172, cm, 03/05/24 9:18:00 EDT, Height/Length Dosing, 104.5, kg, 03/05/24 9:18:00 EDT, Weight Dosing Start Date: 03/05/24 Status: Ordered Misc Medication (1 source) Start: 07-14-2019 Misc Medication See Instructions Start Date: 9/17/19 Status: Ordered oseltamivir 75 mg oral capsule (1 source) Neuraminidase Inhibitor Start: 12-01-2024 take 1 capsule by mouth twice daily Oseltamivir 75 mg capsule Active 75 MG PO Twice daily 08 01December 01, 2024 1:00am phentermine hydrochloride 37.5 mg oral tablet (4 sources) Sympathomimetic Amine Anorectic Start: 10-23-2023 take 1 tablet by mouth once daily before breakfast Adipex-P 37.5 MG 1 tablet before breakfast Orally Once a day for 30 days Rx #2 Sep, Active Start: 09-25-2023 take 1 tablet by jaquelin th once [...] day(s), # 10 tab(s), Refills(s) 0, Pharmacy: [facility]/pharmacy #[id number], 172, cm, 03/05/24 9:18:00 EDT, Height/Length Dosing, 104.5, kg, 03/05/24 9:18:00 EDT, Weight Dosing Start Date: 03/05/24 Stop Date: 03/10/24 Status: Ordered rosuvastatin calcium 20 mg oral tablet (18 sources) HMG-CoA Reductase Inhibitor Start: 05-05-2024 take 1 tablet by mouth once daily in the evening Rosuvastatin 20 mg tablet Active 0 .ROUTE .COMPLEX May 05, 2024 8:40am TAKE 1 TABLET BY MOUTH EVERY DAY IN THE EVENING Start: 05-03-2022 End: 05-05-2024 take 1 tablet by mouth once daily rosuvastatin (CRESTOR) 20 mg tablet Take 1 tablet (20 mg total) by mouth nightly. 05/28/2022 Active rosuvastatin (Cr estor) 5 MG tablet Rosuvastatin Calcium Active Semaglutide (Weight Loss) (1 source) Start: 03-10-2025 Semaglutide (W eight Loss) (Wegovy) 0.25 mg/0.5 mL pen injector Active 0.25 MG SUBCUT every week 2 March 10, 2025 12:00am administer weeks 1 through 4 of therapy tacrolimus 0.001 mg/mg topical ointment (2 sources) Calcineurin Inhibitor Immunosuppressant Start: 12-10-2024 tacrolimus (Protopic) 0.1 % ointment Indications: Other atopic dermatitis Apply 0.5 g to the hands twice a day when flared, 30 day supply 30 g 11 12/10/2024 Active Completed/Discontinued Medications Medication Drug Class(es) Dates Sig (Normalized) Sig (Original) ALPRAZolam 0.25 mg oral tablet (13 sources) Benzodiazepine Start: 05-03-2022 End: 03-09-2024 take 1 tablet by mouth three times daily as needed for anxiety Alprazolam 0.25 mg tablet Discontinued 0.25 MG PO Three times daily as needed for Anxiety May 03, 2022 12:00am March 09, 2024 3:06pm Start: 05-01-2022 take 1 tablet by jaquelin th every eight hours as needed ALPRAZolam (XANAX) 0.25 mg tablet Take 1 tablet (0.25 mg total) by mouth every 8 (eight) hours as needed. 05/01/2022 Active take 1 tablet by jaquelin th every twelve hours ALPRAZolam 0.25 MG 1 tablet Orally Twice a day Active amLODIPine 5 mg oral tablet (4 sources) Dihydropyridine Calcium Channel Debora Start: 03-09-2024 End: 03-09-2024 take 1 tablet by mouth once daily Amlodipine 5 mg tablet Discontinued 5 MG PO Daily March 09, 2024 12:00am March 09, 2024 3:07pm Start: 11-19-2023 take 1 tablet by jaquelin th once daily amLODIPine (Norvasc) 5 MG tablet TAKE 1 TABLET BY MOUTH EVERY DAY FOR 30 DAYS 0 11/19/2023 Active Start: 10-23-2023 take 1 tablet by jaquelin th every twenty-four hours amLODIPine Besylate 5 MG 1 tablet Orally Once a day for 30 days Sep, Active citric acid 75 mg/ml / magnesium oxide 21.9 mg/ml / picosulfate sodium 0.0625 mg/ml oral solution (1 source) Calculi Dissolution Agent, Anti-coagulant Start: 02-19-2019 Clenpiq 10-3.5-12 MG-GM -GM/160ML 160ml at 3pm, 160ml at 9pm the day prior to colonoscopy Orally BID for 1 days Jan, Not-Taking ferrous sulfate 325 mg oral tablet (1 source) Start: 09-07-2024 End: 12-01-2024 take 1 tablet by mouth once daily Ferrous Sulfate 325 mg (65 mg iron) tablet Discontinued 325 MG PO Daily September 07, 2024 1:00am December 01, 2024 11:46am sildenafil 100 mg oral tablet (7 sources) Phosphodiesterase 5 Inhibitor Start: 03-09-2024 End: 03-09-2024 take 1 tablet by mouth once daily as needed Sildenafil 100 mg tablet Discontinued 100 MG PO Daily as needed March 09, 2024 12:00am March 09, 2024 3:07pm Start: 11-20-2022 take 1 tablet by jaquelin th once daily as needed Sildenafil Citrate 100 MG 1 Tablet Orally Once a day, as needed for ED for 30 day(s) Oct, Active Problems Problem Classification Problem Date Documented Date Episodic/Chronic Administrative/social admission (2 sources) Counseling procedure with explicit context; Translations: [Dietary counseling and surveillance] Onset: 03-05-2024 Episodic Allergic reactions (4 sources) Atopic dermatitis; Translations: [Atopic dermatitis, unspecified] 12-11-2023 Chronic Anxiety disorders (10 sources) Generalized anxiety disorder; Translations: [Generalized anxiety disorder] Chronic Cancer of prostate (18 sources) Malignant neoplasm of prostate; Translations: [Malignant tumor of prostate] Onset: 10-09-2019 Chronic Comment on above: Dx: /p radical prostatectomy Deficiency and other anemia (1 source) Anemia; Translations: [Anemia, unspecified] 09-04-2024 Episodic Deficiency and other anemia (1 source) Anemia, unspecified; Translations: [Anemia, unspecified] 03-10-2025 Episodic Disorders of lipid metabolism (10 sources) Hypercholesterolemia ; Translations: [Pure hypercholesterolemia , unspecified] Chronic Essential hypertension (6 sources) Essential hypertension; Translations: [Essential (primary) hypertension] Chronic Genitourinary symptoms and ill-defined conditions (1 source) Increased frequency of urination 08-20-2019 Episodic Hyperplasia of prostate (1 source) Benign prostatic hypertrophy with outflow obstruction 08-20-2019 Chronic Influenza (1 source) Influenza due to Influenza A virus; Translations: [Influenza due to other identified influenza virus with other respiratory manifestations] 12-01-2024 Episodic Mycoses (12 sources) Tinea corporis; Translations: [Tinea corporis] Episodic Neoplasms of unspecified nature or uncertain behavior (4 sources) Neoplastic disease; Translations: [Neoplasm of unspecified behavior of bone, soft tissue, and skin] 12-11-2023 Episodic Other aftercare (5 sources) 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 EHR Cmte Other and unspecified benign neoplasm (10 sources) Benign neoplasm of colon; Translations: [Benign neoplasm of colon, unspecified] Episodic Other and unspecified benign neoplasm (1 source) Benign neoplasm of descending colon; Translations: [Adenomatous polyp of descending colon] Episodic Other and unspecified benign neoplasm (1 source) Benign neoplasm of colon, unspecified; Translations: [Adenoma of colon] Episodic Other and unspecified benign neoplasm (4 sources) Melanocytic nevus of trunk; Translations: [Melanocytic nevi of trunk] 12-11-2023 Episodic Other and unspecified benign neoplasm (2 sources) Skin lesion; Translations: [Hemangioma of skin and subcutaneous tissue] 12-11-2023 Episodic Other and unspecified benign neoplasm (1 source) Polyp of colon; Translations: [Polyp of colon] 03-07-2024 Episodic Other and unspecified benign neoplasm (1 source) Polyp of colon; Translations: [Benign neoplasm of colon] 03-10-2025 Episodic Other circulatory disease (1 source) Elevated blood-pressure reading, without diagnosis of hypertension Episodic Other ear and sense organ disorders (1 source) Bilateral tinnitus; Translations: [Tinnitus, bilateral] 09-07-2024 Episodic Other ear and sense organ disorders (1 source) Tinnitus, bilateral; Translations: [Tinnitus, unspecified] 03-10-2025 Episodic Other male genital disorders (6 sources) Erectile dysfunction co-occurrent and due to arterial insufficiency; Translations: [Erectile dysfunction due to arterial insufficiency] Chronic Other male genital disorders (1 source) Erectile dysfunction due to arterial insufficiency Chronic Other male genital disorders (4 sources) Erectile dysfunction following radical prostatectomy; Translations: [Erectile dysfunction following radical prostatectomy] Onset: 01-15-2023 07-30-2023 Chronic Other non-epithelial cancer of skin (2 sources) History of malignant basal cell neoplasm of skin; Translations: [Personal history of other malignant neoplasm of skin] 12-10-2024 Episodic Other nutritional; endocrine; and metabolic disorders (13 [...] nutritional; endocrine; and metabolic disorders (2 sources) Obesity; Translations: [Other obesity due to excess calories] Onset: 03-05-2024 Chronic Other nutritional; endocrine; and metabolic disorders (1 source) Obesity, unspecified; Translations: [Obesity, unspecified] 03-10-2025 Chronic Other screening for suspected conditions (not mental disorders or infectious disease) (1 source) Raised prostate specific antigen 08-20-2019 Episodic Other skin disorders (1 source) Dyshidrosis [pompholyx] Episodic Other skin disorders (2 sources) Epidermoid cyst; Translations: [Epidermal cyst] 12-11-2023 Episodic Other skin disorders (2 sources) Sebaceous hyperplasia; Translations: [Other specified follicular disorders] 12-11-2023 Episodic Other skin disorders (2 sources) Seborrheic keratosis; Translations: [Other seborrheic keratosis] 12-10-2024 Episodic Residual codes; unclassified (6 sources) History of radical prostatectomy; Translations: [Acquired absence of other genital organ(s)] Episodic Residual codes; unclassified (1 source) Family history of prostate cancer 08-20-2019 Episodic Sprains and strains (1 source) Neck sprain; Translations: [Sprain of joints and ligaments of unspecified parts of neck, initial encounter] Onset: 03-05-2024 Episodic Results Test Name Value Interpretation Reference Range Facility No Panel Informationon 12-10 Type of biopsy: tangential Informed consent: discussed [...] yes Amount of lidocaine used: 0.5 cc [facility] Ambulatory Visit Summaryon 0 03-05-2024 Ambulatory Visit Summary JEANNETTEVISHAL :1970 Visit Date:03/05/2024 Ambulatory Visit Instructions Your [...] At bedtime Sprain of neck Pickup at [facility]/pharmacy #[id number] New predniSONE (predniSONE 20 mg Tab) 2 Tablets By Mouth Every day Sprain of neck Duration: 5 Days Pickup at [facility]/pharmacy #[id number] Unchanged Non-Formulary Medication (Misc Medication) See instructions Unchanged rosuvastatin (rosuvastatin 20 mg Tab) Pharmacy Information [facility]/pharmacy #[id number]: [address] [place], [place] [id number] [phone] Allergies No Known Allergies Problems Ongoing - [...] for choosing us for your care. Normal [facility] Family Medicine Office/Clini c Noteon 03-05-2024 Family Medicine Office/Clinic Note Chief Complaint neck pain HPI Staff 53 year old male presents with neck pain since saturday. Patient was playing golf and felt pain on right shoulder after a swing. Pain is radiating to neck. Limited range of motion. History of Present Illness Reviewed and agree with above documented HPI by medical lead. Patient is a 53-year-old male who presents [...] Bedtime, # 10 tab(s), Refills(s) 0, Pharmacy: [facility]/pharmacy #[id number], 172, cm, 03/05/24 9:18:00 EDT, Height/Length Dosing, 104.5, kg, 03/05/24 9:18:00 EDT, Weight Dosing predniSONE, 40 mg = 2 tab(s), Oral, Daily, X 5 day(s), # 10 tab(s), Refills(s) 0, Pharmacy: [facility]/pharmacy #[id number], 172, cm, 03/05/24 9:18:00 [...] with voice recognition artificial intelligence software, specifically [employer], [employer] and or [employer] (more content not included)... Normal [facility] Comment on above: Result Comment: Wiley marally Signed By: Shalini OSORIO, Violeta Lindo.br\Date and Time Signed: 03/05/24 09:47 EDT Patient [...] numbers. This can be done either in [place] ([place] or metric measurements. Note that charts and online BMI calculators are available to help you find your BMI quickly and easily without having to do these calculations yourself. To calculate your BMI in [place] ([place] measurements: 1. Measure your weight in [...] for Disease Control and Prevention: www.cdc.gov ? [place] Heart Association: www.heart.org ? National Heart, Lung, and Blood [place]: www.nhlbi.nih.gov Summary ? Body mass index (BMI) is a number that is calculated from a person's weight and height. ? BMI may help estimate how much of a person's weight is composed of fat. BMI can help identify those who may be at higher risk for certain medical problems. ? BMI can be measured using [place] measurements or metric measurements. ? BMI charts are used to identify whether you are underweight, normal weight, overweight, or obese. This information is not intended to replace advice given to you by your health care provider. Make sure you discuss any questions you have with your health care provider. Document Revised: 07/06/2020 Document Reviewed: 05/13/2020 Elsevier Patient Education ? 2022 [employer] [facility]ics Cervical Sprain A cervical sprain [...] a vehicle (more content not included)... Normal [facility] Patient Letter FTon 2023 Patient Letter [facility] [address] [place] [address] March 05, 2024 VISHAL MACHADO [address] [place] [address] [place] [address] : 1970 Please excuse VISHAL MACHADO from work . He was being [facility]. May return to work on: 03/05/2024 Restrictions: None Comments: Please excuse due to an acute illness. Provider Signature: Violeta Loya CNP [address] [place] [address] [place] [address] Normal [facility] MR KNEE LEFT WO IV CONTRASTo n [...] yes Amount of lidocaine used: 0.5 cc [facility] CBC AUTO DIFFon 03-23-2023 BASO # 0.0 103/ul Normal 0.0-0.1 [facility] Comment on above: Performed By: #### C BC #### [facility] [address] [address] [address] Carmen Schmidt Basophils/100 WBC (Bld) 0.8 % Normal 0.2-2.0 [facility] Comment on above: Performed By: #### C BC #### [facility] [address] [address] [address] Carmen Schmidt EO # 0.1 103/ul Normal 0.0-0.7 [facility] Comment on above: Performed By: #### C BC #### [facility] [address] [place] [address] Dr. Carmen Schmidt Eosinophils/100 WBC (Bld) 2.2 % Normal 0.9-7.0 [facility] Comment on above: Performed By: #### C BC #### [facility] [address] [place] [address] Dr. Carmen Schmidt Erythrocyte distribution width (RBC) [Ratio] 13.2 % Normal 11.0-15.0 [facility] Comment on above: Performed By: #### C BC #### [facility] [address] [place] [address] Dr. Carmen Schmidt Hematocrit (Bld) [Volume fraction] 41.0 % Critically low 42.0-54.0 [facility] Comment on above: Performed By: #### C BC #### [facility] [address] [place] [address] Dr. Carmen Schmidt Hemoglobin (Bld) [Mass/Vol] 14.7 g/dL Normal 14.0-18.0 [facility] Comment on above: Performed By: #### C BC #### [facility] [address] [place] [address] Dr. Carmen Schmidt IG # 0.04 10e3/ul Critically high 0.00-0.03 [facility] Comment on above: Performed By: #### C BC #### [facility] [address] [place] [address] Dr. Carmen Schmidt IG % 0.8 % Critically high 0.0-0.5 [facility] Comment on above: Performed By: #### C BC #### [facility] [address] [place] [address] Dr. Carmen Schmidt LYMPH # 1.9 103/ul Normal 1.2-3.8 [facility] Comment on above: Performed By: #### C BC #### [facility] [address] [place] [address] Dr. Carmen Schmidt Lymphocytes/100 WBC (Bld) 37.0 % Normal 20.5-60.0 [facility] Comment on above: Performed By: #### C BC #### [facility] [address] [place] [address] Dr. Carmen Schmidt MANUAL DIFF REQ NO Normal [facility] Comment on above: Performed By: #### C BC #### [facility] [address] [place] [address] Dr. Carmen Schmidt MCH (RBC) [Entitic mass] 30.4 pg Normal 25.9-34.0 [facility] Comment on above: Performed By: #### C BC #### [facility] [address] [place] [address] Dr. Carmen Schmidt MCHC (RBC) [Mass/Vol] 35.9 g/dL Critically high 29.9-35.2 [facility] Comment on above: Performed By: #### C BC #### [facility] [address] [place] [address] Dr. Carmen Schmidt MCV (RBC) [Entitic vol] 84.9 fL Normal 80.0-94.0 [facility] Comment on above: Performed By: #### C BC #### [facility] [address] [place] [address] Dr. Carmen Schmidt MONO # 0.6 103/ul Normal 0.3-0.8 [facility] Comment on above: Performed By: #### C BC #### [facility] [address] [place] [address] Dr. Carmen Schmidt Monocytes/100 WBC (Bld) 11.9 % Normal 1.7-12.0 [facility] Comment on above: Performed By: #### C BC #### [facility] [address] [place] [address] Dr. Carmen Schmidt NEUT # 2.4 103/ul Normal 1.4-6.5 [facility] Comment on above: Performed By: #### C BC #### [facility] [address] [place] [address] Dr. Carmen Schmidt Neutrophils/100 WBC (Bld) 47.3 % Normal 43.0-75.0 [facility] Comment on above: Performed By: #### C BC #### [facility] [address] [place] [address] Dr. Carmen Schmidt Platelet mean volume (Bld) [Entitic vol] 9.5 fL Normal 9.5-13.5 [facility] Comment on above: Performed By: #### C BC #### [facility] [address] [place] [address] Dr. Carmen Schmidt PLT 223 103/ul Normal 150-450 [facility] Comment on above: Performed By: #### C BC #### [facility] [address] [place] [address] Dr. Carmen Schmidt RBC 4.83 106/ul Normal 4.70-6.10 [facility] Comment on above: Performed By: #### C BC #### [facility] [address] [place] [address] Dr. Carmen Schmidt WBC 5.0 103/ul Normal 4.0-11.0 [facility] Comment on above: Performed By: #### C BC #### [facility] [address] [place] [address] Dr. Carmen Schmidt LIPID PROFILEon 03-23-2023 CHOL-HDL RATIO NORM SEE BELOW Normal [facility] Comment on above: Result Comment: 3.3 - 4.4 LOW RISK 4.4 - 7.1 AVERAGE RISK 7.1 - 11.0 MODERATE RISK >11.0 HIGH RISK Performed By: #### C MP, LIPID #### [facility] [address] [place] [address] Dr. Carmen Schmidt Cholesterol [Mass/Vol] 108 mg/dL Normal <=200 [facility] Comment on above: Performed By: #### C MP, LIPID #### [facility] [address] [place] [address] Dr. Carmen Schmidt Cholesterol in HDL [Mass/Vol] 35 mg/dL Critically low 40-60 [facility] Comment on above: Performed By: #### C MP, LIPID #### [facility] [address] [address] [address] Carmen Schmidt Cholesterol in LDL [Mass/Vol] 60.4 mg/dL Normal [facility] Comment on above: Performed By: #### C MP, LIPID #### [facility] [address] [address] [address] Carmen Schmidt Cholesterol.total/ Cholesterol in HDL [Mass ratio] 3.1 {ratio} Normal [facility] Comment on above: Performed By: #### C MP, LIPID #### [facility] [address] [address] [address] Carmen Schmidt HDL NORMAL > or = 60 mg/dl - LO W CARDIOVASCULAR RISK <40 mg/dl - HIGH CARDIOVASCULAR RISK Normal [facility] Comment on above: Performed By: #### C MP, LIPID #### [facility] [address] [place] [address] Dr. Carmen Schmidt LDL CALC NORMAL SEE BELOW Normal [facility] Comment on above: Result Comment: <100 mg/dl OPTIMAL 100 - 129 mg/dl NEAR OR ABOVE OPTIMAL 130 - 159 mg/dl BORDERLINE HIGH 160 - 189 mg/dl HIGH >190 mg/dl VERY HIGH Performed By: #### C MP, LIPID #### [facility] [address] [place] [address] Dr. Carmen Schmidt Triglyceride [Mass/Vol] 63 mg/dL Normal <=150 [facility] Comment on above: Performed By: #### C MP, LIPID #### [facility] [address] [place] [address] Dr. Carmen Schmidt VLDL CALC 12.6 mg/dL Normal [facility] Comment on above: Performed By: #### C MP, LIPID #### [facility] [address] [place] [address] Dr. Carmen Schmidt PROF 14(COMP METB)on 023 Albumin [Mass/Vol] 4.3 g/dL Normal 3.4-5.0 [facility] Comment on above: Performed By: #### C MP, LIPID #### [facility] [address] [address] [address] Carmen Schmidt Albumin/Globulin [Mass ratio] 1.5 {ratio} Normal [facility] Comment on above: Performed By: #### C MP, LIPID #### [facility] [address] [address] [address] Carmen Schmidt ALP [Catalytic activity/Vol] 69 U/L Normal 46-116 [facility] Comment on above: Performed By: #### C MP, LIPID #### [facility] [address] [address] [address] Carmen Schmidt ALT [Catalytic activity/Vol] 31 U/L Normal 16-63 [facility] Comment on above: Performed By: #### C MP, LIPID #### [facility] [address] [place] [address] Dr. Carmen Schmidt Anion gap [Moles/Vol] 15.7 mmol/L Normal [facility] Comment on above: Performed By: #### C MP, LIPID #### [facility] [address] [place] [address] Dr. Carmen Schmidt AST [Catalytic activity/Vol] 17 U/L Normal 15-37 [facility] Comment on above: Performed By: #### C MP, LIPID #### [facility] [address] [place] [address] Dr. Carmen Schmidt Bilirubin [Mass/Vol] 0.6 mg/dL Normal 0.2-1.0 [facility] Comment on above: Performed By: #### C MP, LIPID #### [facility] [address] [place] [address] Dr. Carmen Schmidt Calcium [Mass/Vol] 8.9 mg/dL Normal 8.5-10.1 [facility] Comment on above: Performed By: #### C MP, LIPID #### [facility] [address] [place] [address] Dr. Carmen Schmidt Chloride [Moles/Vol] 106 mmol/L Normal 98-107 [facility] Comment on above: Performed By: #### C MP, LIPID #### [facility] [address] [address] [address] Carmen Schmidt CO2 [Moles/Vol] 26.2 mmol/L Normal 21.0-32.0 [facility] Comment on above: Performed By: #### C MP, LIPID #### [facility] [address] [address] [address] Carmen Schmidt Creatinine [Mass/Vol] 0.70 mg/dL Normal 0.70-1.30 [facility] Comment on above: Performed By: #### C MP, LIPID #### [facility] [address] [address] [address] Carmen Schmidt EGFR-AF TURKS AND CAICOS ISLANDER >60 Normal >=60 [facility] Comment on above: Performed By: #### C MP, LIPID #### [facility] [address] [place] [address] Dr. Carmen Schmidt EGFR-NON AF TURKS AND CAICOS ISLANDER >60 Normal >=60 [facility] Comment on above: Performed By: #### C MP, LIPID #### [facility] [address] [place] [address] Dr. Carmen Schmidt Globulin (S) [Mass/Vol] 2.9 g/dL Normal [facility] Comment on above: Performed By: #### C MP, LIPID #### [facility] [address] [place] [address] Dr. Carmen Schmidt Glucose [Mass/Vol] 103 mg/dL Normal 74-106 [facility] Comment on above: Performed By: #### C MP, LIPID #### [facility] [address] [address] [address] Carmen Schmidt Potassium [Moles/Vol] 4.9 mmol/L Normal 3.5-5.1 [facility] Comment on above: Performed By: #### C MP, LIPID #### [facility] [address] [address] [address] Carmen Schmidt Protein [Mass/Vol] 7.2 g/dL Normal 6.4-8.2 [facility] Comment on above: Performed By: #### C MP, LIPID #### [facility] [address] [address] [address] Carmen Schmidt Sodium [Moles/Vol] 143 mmol/L Normal 136-145 [facility] Comment on above: Performed By: #### C MP, LIPID #### [facility] [address] [place] [address] Dr. Carmen Schmidt Urea nitrogen [Mass/Vol] 9.0 mg/dL Normal 7.0-18.0 [facility] Comment on above: Performed By: #### C MP, LIPID #### [facility] [address] [address] [address] Carmen Schmidt Urea nitrogen/Creatinin e [Mass ratio] 12.9 mg/mg Normal [facility] Comment on above: Performed By: #### C IRWIN, LIPID #### [facility] [address] [address] [address] Carmen Singh 05-03-2022 L --- Specimen: [id number] Received: 05/03/22 Status: ANA M Rangel Num: [id number] Spec Type: Surgical Subm Dr: Francisco Coleman MD Tissues: A Colon - Polyp (ASCENDING POLYP) B Colon Biopsy (SIGMOID) C Colon - Polyp (SIGMOID POLYP) Procedures: HE Stain/6, Gross/Micro L4/3 Patient Age/Sex Location Account Attending Physician JeannetteVishal cheng Umu 51/M [id number] Francisco Coleman MD SPEC NUM: [id number] RECD: 05/03/22 STATUS: AAN M RANGEL NUM: [id number] SUDHAKAR: 05/03/22- SUBM DR: Francisco Coleman MD ENTERED: 05/03/22-[address] [facility] [address]: MOHIT TYPE: Surgical DEPT: S ORDERED: HE Stain/6, [...] number and polyp sigmoid are two Specimen: [id number] Received: 05/03/22 Status: ANA M Rangel Num: [id number] Spec Type: Surgical Subm Dr: Francisco Coleman MD Tissues: A Colon - Polyp (ASCENDING POLYP) B Colon Biopsy (SIGMOID) C Colon - Polyp (SIGMOID POLYP) Procedures: HE Stain/6, Gross/Micro L4/3 Patient: Vishal Machado [id number] (Continued) Specimen: [id number] Received: 05/03/22 (Continued) Gross Description (Continued) Signed (signature on file) Lois Chong MD 05/04/22 1534 Specimen: Received: 05/03/22 Status: ANA M Rangel Num: [id number] Spec Type: Surgical Subm Dr: Francisco Coleman MD Tissues: A Colon - Polyp (ASCENDING POLYP) B Colon Biopsy (SIGMOID) C Colon - Polyp (SIGMOID POLYP) Procedures: HE Stain/6, Gross/Micro L4/3 Patient: Vishal Machado Umu [id number] (Continued) Specimen: [id number] Received: 05/03/22 (Continued) Gross Description (Continued) fragments [...] support the above pathologic diagnosis. CPT Codes 58550?3 Specimen: [id number] Received: 05/03/22 Status: ANA M Rangel Num: [id number] Spec Type: Surgical Subm Dr: Francisco Coleman MD Tissues: A Colon - Polyp (ASCENDING POLYP) B Colon Biopsy (SIGMOID) C Colon - Polyp (SIGMOID POLYP) Procedures: HE Stain/6, Gross/Micro L4/3 Patient: Vishal Machado [id number] (Continued) Signed (signature on file) Lois Chong MD 05/04/22 1534 [facility] COVID-19 Antigenon 2 COVID-19 Antigen Healthcare [...] developed and its performance characteristic determined by [employer] and validated at [facility]. This test has not been FDA [...] for SARS Antigen by [employer] PERFORMED BY: [place] [address] PATHOLOGIST HEAD REFRIGERATION ENGINEER LAKHWINDER REYES M.D. [facility] Comment on above: Performed By: #### S RADHA COVID-19 MINAL #### [address] Minal Ag Negativeon 05-01-20 22 Minal Ag Negative Negative Normal Negative [facility] Comment on above: Result Comment: This is a duplicate Mianl SARS Antigen (CINDA) result to be used for statistical tracking purpose only. PERFORMED BY: [place] [address] PATHOLOGIST HEAD REFRIGERATION ENGINEER LAKHWINDER REYES M.D. Performed By: #### S OFVELMA, COVID-19 MINAL #### [place] [address] [facility] Vital Signs Date Time Vital Sign Value Performing Clinician Facility 03-10-2025 15:08-0400 Body height 172.72 cm [facility] 03-10-2025 15:08-0400 Body mass index (BMI) [Ratio] 34.7 kg/m2 [facility] 03-10-2025 15:08-0400 Body weight 103.53 kg [facility] 03-10-2025 15:08-0400 Diastolic blood pressure 88 mm[Hg] [facility] 03-10-2025 15:08-0400 Heart rate 118 /min [facility] 03-10-2025 15:08-0400 Respiratory rate 12 /min [facility] 03-10-2025 15:08-0400 Systolic blood pressure 134 mm[Hg] [facility] 03-05-2024 09:15-0400 Blood Pressure Location [facility] 03-05-2024 09:15-0400 Body temperature 97.7 [degF] [facility] 03-05-2024 09:15-0400 Diastolic blood pressure 102 mm[Hg] [facility] 03-05-2024 09:15-0400 Heart rate 93 /min [facility] 03-05-2024 09:15-0400 SaO2% (BldA) [Mass fraction] 97 % [facility] 03-05-2024 09:15-0400 Systolic blood pressure 144 mm[Hg] [facility] 12-02-2023 14:30-0500 Body height 172.72 cm [facility]b [employer] Other [employer] [facility] [employer] Other 12-02-2023 14:30-0500 Body mass index (BMI) [Ratio] 34.15 kg/m2 Cb Ball Other [employer] Other 12-02-2023 14:30-0500 Body weight 101.88 kg Cb Ball Other [employer] Other 12-02-2023 14:30-0500 Diastolic blood pressure 78 mm[Hg] Cb Ball Other [employer] Other 12-02-2023 14:30-0500 Respiratory rate 12 /min Cb Ball Other [employer] Other 12-02-2023 14:30-0500 Systolic blood pressure 136 mm[Hg] Cb Ball Other [employer] Other 10-23-2023 15:00-0500 Body height 172.72 cm Cb Ball Other [employer] Other 10-23-2023 15:00-0500 Body mass index (BMI) [Ratio] 34.88 kg/m2 Cb Ball Other [employer] Other 10-23-2023 15:00-0500 Body weight 104.06 kg Cb Ball Other [employer] Other 10-23-2023 15:00-0500 Diastolic blood pressure 92 mm[Hg] Cb Ball Other [employer] Other 10-23-2023 15:00-0500 Respiratory rate 12 /min Cb Ball Other [employer] Other 10-23-2023 15:00-0500 Systolic blood pressure 152 mm[Hg] Cb Ball Other [employer] Other 09-25-2023 15:30-0500 Body height 172.72 cm Cb Ball Other [employer] Other 09-25-2023 15:30-0500 Body mass index (BMI) [Ratio] 34.3 kg/m2 Cb Ball Other [employer] Other 09-25-2023 15:30-0500 Body weight 102.33 kg Cb Ball Other [employer] Other 09-25-2023 15:30-0500 Diastolic blood pressure 91 mm[Hg] Cb Ball Other [employer] Other 09-25-2023 15:30-0500 Respiratory rate 12 /min Cb Ball Other [employer] Other 09-25-2023 15:30-0500 Systolic blood pressure 142 mm[Hg] Cb Ball Other [employer] Other 08-26-2023 14:30-0400 Body height 172.72 cm Cb Ball Other [employer] Other 08-26-2023 14:30-0400 Body mass index (BMI) [Ratio] 35.55 kg/m2 Cb Ball Other [employer] Other 08-26-2023 14:30-0400 Body weight 106.05 kg Cb Ball Other [employer] Other 08-26-2023 14:30-0400 Diastolic blood pressure 86 mm[Hg] Cb Ball Other [employer] Other 08-26-2023 14:30-0400 Respiratory rate 12 /min Cb Ball Other [employer] Other 08-26-2023 14:30-0400 Systolic blood pressure 138 mm[Hg] Cb Ball Other [employer] Other 04-16-2023 14:15-0400 Body height 172.72 cm Cb Ball Other [employer] Other 04-16-2023 14:15-0400 Body mass index (BMI) [Ratio] 33.63 kg/m2 Cb Ball Other [employer] Other 04-16-2023 14:15-0400 Body weight 100.34 kg Cb Ball Other [employer] Other 04-16-2023 14:15-0400 Diastolic blood pressure 82 mm[Hg] Cb Ball Other [employer] Other 04-16-2023 14:15-0400 Respiratory rate 12 /min Cb Ball Other [employer] Other 04-16-2023 14:15-0400 Systolic blood pressure 132 mm[Hg] Cb Ball Other [employer] Other 11-20-2022 15:00-0500 Body height 172.72 cm Cb Ball Other [employer] Other 11-20-2022 15:00-0500 Body mass index (BMI) [Ratio] 37.43 kg/m2 Cb Ball Other [employer] Other 11-20-2022 15:00-0500 Body weight 111.68 kg Cb Ball Other [employer] Other 11-20-2022 15:00-0500 Diastolic blood pressure 82 mm[Hg] Cb Ball Other [employer] Other 11-20-2022 15:00-0500 Respiratory rate 12 /min Cb Ball Other [employer] Other 11-20-2022 15:00-0500 Systolic blood pressure 132 mm[Hg] Cb Guerrero Other [employer] Other Encounters Encounter Date Encounter Type Care Provider Facility Start: 03-10-2025 End: 03-10-2025 ambulatory [facility] Work Phone: Start: 03-10-2025 End: 03-10-2025 Encounter for general adult medical examination without abnormal findings [facility] Start: 03-10-2025 End: 03-10-2025 Patient encounter procedure [facility] Work Phone: Start: 12-10-2024 End: 12-10-2024 Office outpatient visit 15 minutes Blanca Mijareslaurel LADLE LINER HELPER-WIRE CHIEF Work Phone: [facility] Comment on above: Melanocytic nevus of trunk; Other atopic dermatitis; Seborrheic keratosis; History of basal cell carcinoma; Neoplasm of unspecified behavior of bone, soft tissue, and skin Start: 12-10-2024 End: 12-10-2024 ambulatory BLANCA Kingsley FELTER Not Available Start: 12-10-2024 End: 12-10-2024 Bamboo flowsheet Blanca Kingsley Felter LADLE LINER HELPER-WIRE CHIEF Work Phone: [facility] Start: 12-10-2024 End: 12-10-2024 Bamboo flowsheet Blanca Kingsley Felter LADLE LINER HELPER-WIRE CHIEF Work Phone: [facility] Start: 12-01-2024 End: 12-01-2024 Orders Only Violeta Black MD Work Phone: [facility] Comment on above: Prostate cancer (CMS -HCC) (Primary Dx) Start: 07-17-2024 End: 07-17-2024 Orders Only Violeta Black MD Work Phone: [facility] Comment on above: Prostate cancer (CMS -HCC) (Primary Dx) Start: 04-08-2024 End: 04-08-2024 Telephone encounter Mercedes Nieves [facility] Start: 03-05-2024 End: 03-06-2024 ambulatory Violeta Loya Facility: [facility] Start: 03-05-2024 End: 03-05-2024 Patient encounter procedure Violeta Loya [facility] Start: 02-11-2024 End: 02-11-2024 ambulatory LANCE GALICIA Not Available Start: 01-31-2024 End: 01-31-2024 ambulatory KATIE Ordoñez APLING Not Available Start: 01-29-2024 End: 01-29-2024 ambulatory JAIME BURDICK Not Available Start: 01-22-2024 End: 01-22-2024 ambulatory KATIE Ordoñez APLING Not Available Start: 12-25-2023 End: 12-25-2023 ambulatory KATIE Ordoñez APLING Not Available Start: 12-11-2023 End: 12-11-2023 Office outpatient visit 15 minutes Blanca Sánchez [employer]ADLE [employer] HELPER-WIRE CHIEF Work Phone: [facility] Comment on above: Atopic dermatitis, u nspecified type; Epidermal inclusion cyst; Neoplasm of unspecified behavior of bone, soft tissue, and skin; Sebaceous hyperplasia of face; Melanocytic nevus of trunk; Angioma of skin Start: 12-11-2023 Bamboo [employer] Blanca diaz LADLE LINER HELPER-WIRE CHIEF Work Phone: [facility] Start: 12-11-2023 [employer] Blanca Mann ter LADLE LINER HELPER-WIRE CHIEF Work Phone: [facility] Start: 12-02-2023 End: 12-02-2023 ambulatory Cb Guerrero Other [employer] Other Start: 12-02-2023 Office outpatient vi sit 15 minutes Cb Guerrero [facility] Start: 10-23-2023 End: 10-23-2023 ambulatory Cb Cesar Other [employer] Other Start: 10-23-2023 Office outpatient vi sit 15 minutes Cb Guerrero [facility] Start: 09-25-2023 End: 09-25-2023 ambulatory Cb Guerrero Other [employer] Other Start: 09-25-2023 Office outpatient vi sit 15 minutes Cb Guerrero [facility] Start: 08-26-2023 End: 08-26-2023 ambulatory Cb Guerrero Other [employer] Other Start: 08-26-2023 Office outpatient vi sit 15 minutes Cb Guerrero [facility] Start: 04-16-2023 End: 04-16-2023 ambulatory Cb Guerrero Other [employer] Other Start: 04-16-2023 Office outpatient vi sit 15 minutes Cb Guerrero [facility] Start: 03-25-2023 Encounter for genera l adult medical examination without abnormal findings DR CB GUERRERO [facility] Start: 03-23-2023 End: 03-24-[address] CB GUERRERO Facility:[facility] Start: 03-23-2023 End: 03-24-2023 Encounter for general adult medical examination without abnormal findings DR CB GUERRERO Facility:[facility] Start: 01-11-2023 End: 01-12-[address] VIOLETA BLACK Facility:[facility] Start: 11-20-2022 End: 11-20-2022 ambulatory Cb Guerrero Other [employer] Other Start: 11-20-2022 Office outpatient vi sit 15 minutes Cb Guerrero [facility] Start: 07-13-2022 End: 07-14-[address] VIOLETA BLACK Facility:[facility] Procedures Date Procedure Procedure Detail Performing Clinician Start: 12-10-2024 SKIN / NAIL BIOPSY Christie Sánchez [employer]ADLE [employer] HEL[employer]-WIRE CHIEF Work Phone: Start: 12-11-2023 SKIN / NAIL BIOPSY Christie Sánchez [employer]ADLE [employer] HELPER-WIRE CHIEF Work Phone: Start: 01-11-[address] KELLEN GUERRERO Comment on above: Performed By: #### P SAD #### [facility] [address] [place] [address] Dr. Carmen Schmidt Start: 07-13-[address] FOREMAN IN CESAR Comment on above: Performed By: #### P SAD #### [facility] [address] [place] [address] Dr. Carmen Schmidt Start: 08-05-2019 Transrectal biopsy o f prostate using ultrasound guidance Violeta Loya Arthroscopy of knee with lateral meniscus repair Violeta Loya Comment on above: Right Plan of Treatment Date Care Activity Detail Author Start: 12-09-2025 End: 12-09-2025 Patient encounter procedure 12/09/2025 3:20 PM EST Office Visit [facility] [address] [place] [phone] Blanca Sánchez, LADLE [employer]ER HELPER-WIRE CHIEF [address] [place] [address] [facility] Start: 04-27-2025 End: 04-27-2025 Patient encounter procedure 04/27/2025 2:15 PM EDT Office Visit [facility] [address] [place] [phone] Violeta Black MD [address] [place] [address] [phone] [facility] Start: 04-07-2025 End: 12-01-2025 Prostatic specific antigen, diagnostic Prostatic specific antigen, diagnostic Lab Routine Prostate cancer ([facility]) Expected: 04/07/2025 (Approximate), Expires: 12/01/2025 [facility] Work Phone: Comment on above: Expected: 04/07/2025 (Approximate), Expi res: 12/01/2025 Start: 12-10-2024 End: 12-10-2024 Patient encounter procedure [facility] Comment on above: Arrived Start: 12-01-2024 End: 12-01-2024 Patient encounter procedure 12/01/2024 2:45 PM EST Office Visit [facility] [address] [place] [phone] Violeta Black MD [facility] [place] [address] [facility] Start: 10-15-2024 End: 07-17-2025 Prostatic specific antigen, diagnostic Prostatic specific antigen, diagnostic Lab Routine Prostate cancer ([facility]) Expected: 10/15/2024, Expires: 07[facility]17[facility] Work Phone: Comment on above: Expected: 10/15/2024, Expires: Start: 07-30-2024 Adult BMI Screening Adult BMI Screening [facility] Start: 07-30-2024 Tobacco Screening Tobacco Screening [facility] Start: 06-28-2024 COVID-19 Vaccine ( season) COVID-19 Vaccine () [facility] Start: 06-28-2024 COVID-19 Vaccine ( season) COVID-19 Vaccine ( season) [facility] Start: 06-28-2024 Influenza vaccination Influenza Vaccine [facility] Start: 12-11-2023 End: 12-11-2023 Patient encounter procedure 12/11/2023 3:40 PM EST Office Visit [facility] [address] [place] [phone] Blanca Sánchez APRN-WIRE CHIEF [address] [place] [address] Arrived [facility] Comment on above: Arrived Start: 06-28-2023 COVID-19 Vaccine ( season) COVID-19 Vaccine () [facility] Start: 06-28-2023 Influenza vaccination Influenza Vaccine (#1) [facility] Start: 1987 DTaP,Tdap and Td Vaccines (1 - Tdap) DTaP,Tdap and Td Vaccines (1 - Tdap) [facility] Start: 1986 Adult BMI Follow Up Plan Adult BMI Follow Up Plan [facility] Start: 1980 Depression Screening Depression Screening [facility] Start: 1968 Screening for malignant neoplasm of colon [facility] Comprehensive metabo lic 2000 panel - Serum or Plasma [facility] Dermatopathology exam Dermatopat hology exam Pathology and Cytology Timed Neoplasm of unspecified behavior of bone, soft tissue, and skin Release Upon Ordering for 1 Occurrences starting 12/11/2023 [facility] Work Phone: Comment on above: Release Upon Ordering for 1 Occurrences starting 12/11/2023 Dermatopathology exam Dermatopat hology exam Pathology and Cytology Timed Neoplasm of unspecified behavior of bone, soft tissue, and skin Release Upon Ordering for 1 Occurrences starting 12/10/2024 [facility] [employer] Work Phone: Comment on above: Release Upon Ordering for 1 Occurrences starting 12/10/2024 [facility] Immunizations Immunization Date Immunization Notes Care Provider Juan Alberto enamorado 08-30-2023 influenza virus vaccine, unspecified formulation Mercedes Nieves [facility] 01-24-2023 zoster vaccine recombinant Cb Cesar Other [facility] 09-11-2022 zoster vaccine recombinant Cb Guerrero Other [facility] 09-11-2022 zoster vaccine, live Benjami janene Guerrero Other [facility] 07-12-2022 COVID-19 Vaccine Pfizer - Documentation Purposes Only Cb Guerrero Other [facility] 07-12-2022 influenza virus vaccine, split virus (incl. purified surface antigen) Cb Guerrero Other [employer] [facility] [employer] Other 07-12-2022 influenza virus vaccine, unspecified formulation [facility] 10-09-2021 COVID-19 Vaccine Pfizer - Documentation Purposes Only Cb Guerrero Other [facility] 08-02-2021 influenza virus vaccine, split virus (incl. purified surface antigen) Cb Guerrero Other [employer] Other 08-02-2021 influenza virus vaccine, unspecified formulation [facility] 02-07-2021 COVID-19 Vaccine Pfizer - Documentation Purposes Only Cb Guerrero Other [facility] 01-16-2021 COVID-19 Vaccine Pfizer - Documentation Purposes Only Cb Guerrero Other [facility] 09-13-2020 influenza virus vaccine, split virus (incl. purified surface antigen) Cb Guerrero Other [facility] [employer] Other 09-13-2020 influenza virus vaccine, unspecified formulation Blanca Mijareslaurel [facility] Work Phone: [facility] 10-05-2019 influenza virus vaccine, unspecified formulation Mercedes Nieves [facility] Payers Date Payer Category Payer Commercial Managed C are - POS [employer] [id number] 2023 Managed Care HMO (unspecified) [id number] 2023 Private Health Insurance [id number] 2019 Private Health Insurance [id number] 1968 Unknown [id number] [id number] 79.2.593 1968 Unknown [id number] 2.16.840.1.156989.3.5 79.2.593 1968 Unknown [id number] [id number] 79.2.593 1968 Unknown [id number] [id number] 79.2.727 1968 Unknown [id number] [id number] 79.2.1259 1968 Unknown [id number] [id number] 79.2.1259 1968 Unknown [id number] [id number] 79.2.1259 1968 Unknown [id number] 2.16.840.1.349064.3.5 79.2.1259 1968 Unknown [id number] 2.16.840.1.976853.3.5 79.2.1259 1968 Unknown [id number] 2.16.840.1.259061.3.5 79.2.1259 1968 Unknown [id number] [id number] 79.2.1259 1959 Private Health Insurance [id number] Private Health Insurance [id number] Unknown Ariana / [id number] Social History Date Type Detail Facility Start: 12-08-2020 End: 12-11-2023 Sex Assigned At [facility] Start: 11-18-2023 End: 03-10-2025 Tobacco smoking status NMIS Never smoked tobacco [facility] Start: 1970 Sex Assigned At Male [facility] Start: 10-13-2019 Gender identity Identifies as male gender (finding) [facility] Start: 10-13-2019 Sexual orientation Heterosexual (finding) [facility] Start: 12-08-2020 End: 12-11-2023 History of Social function [facility] Tobacco smoking status Never [facility] Start: 07-30-2023 End: 12-25-2023 Tobacco use and exposure Smokeless tobacco non-user [facility] Start: 07-30-2023 End: 12-10-2024 Alcoholic beverage intake Current drinker of alcohol (finding) [facility] Start: 09-10-2019 End: 03-10-2025 Sex Male (finding) [facility] Goals Date Patient Goal Desired Activity /State Personal health goal Comment on above: Formatting of this n ote might be different from the original. Evaluation of progress towards goal: patient plans to discharge home with spouse and home care Functional Status Date Assessment Result Facility 03-05-2024 Functional Status N/A [facility] Clinical Notes 11-20-2022 to 12-10-2024 Blanca Sánchez APRN-ANAMARIA - 12/10/2024 3:35 PM ESTTelephone Encounter - Vicenta Jo CMA - 12/01/2024 11:28 AM ESTTelephone Encounter - Violeta Black MD - 12/01/2024 11:28 AM EST Note Date & Type Note Facility 12-10-2024 History of Present illness Narrative Images from the original note were not included. Skin Check Location: Patient requests a skin examination from the waist up Dermatologic history: history of Basal Cell Carcinoma on the mid parietal scalp, ED&C done on 01/29/2024 Last visit: 1 year ago Follow up Diagnosis: Atopic Dermatitis Location: Hands, back Last visit: 1 year ago Symptoms: red, dry Status: flares with cold weather Current treatment: Protopic (tacrolimus) 0.1% ointment, Triamcinolone 0.1% cream, has needed Prednisone and antibiotics in the past for severe flares. All pertinent medical history, medications, and allergies were reviewed. General Exam: alert, oriented to person, place, and time, normal affect, well appearing A complete skin exam was offered, pt declined. Areas not examined despite medical recommendation: From the waist down Scalp, Examined , exam limited by hair Head, Face Examined Neck Examined Chest Examined Back Examined Abdomen Examined Right arm Examined Left arm Examined Hands Examined Digits,nails: Examined Lymphatics: Not examined 1. Melanocytic nevus of trunk Scattered benign appearing, regular brown to light brown melanocytic papules and macules with similar morphology Counseled regarding these benign growths. Rarely, a nevus can develop into malignant melanoma, so any changing nevi should be promptly re-evaluated. 2. Other atopic dermatitis Left Hand - Anterior, Right Hand - Anterior Scaly erythematous patches Discussed that atopic dermatitis is a chronic condition that can be controlled but not cured. Continue Protopic 0.1% ointment bid prn when flared, hold if smooth/asymptomatic. Encouraged daily moisturizing and gentle cleansers to prevent flares. Notify office if flaring despite treatment. Related Medications tacrolimus (Protopic) 0.1 % ointment Apply 0.5 g to the hands twice a day when flared, 30 day supply 3. Seborrheic keratosis Torso - Posterior (Back) Stuck on verrucous, variably pigmented papules and plaques. Patient was counseled regarding these benign growths. Removal is normally not necessary, but they may be removed if they are symptomatic or for cosmetic reasons. 4. History of basal cell carcinoma Mid Parietal Scalp No evidence of recurrence at BCC scar. The patient was counseled that scars from excisional sites of nonmelanoma skin cancers should be monitored closely for recurrence. The patient was instructed to contact the office for any new, changing, or symptomatic moles. The patient was also instructed to contact the office for any new lesions that develop within or around the previous surgery scar. 5. Neoplasm of unspecified behavior of bone, soft tissue, and skin Right Upper Back Dark brown macule with irregular border Lesion biopsy Type of biopsy: tangential Informed [...] Specimen A - Dermatopathology exam Differential Diagnosis: Nevus vs Spitz nevus Check Margins: No Size of lesion: 0.6 x 0.3 cm Next Visit: 1 year documented in this encounter [facility] 12-01-2024 Miscellaneous Notes Pt called to cancel appt today due to the FLU, he had PSA in NOV and wants to know if another PSA is needed before his new appt 04/27/25, please advise I ordered a psa have him obtain a week or so prior. His most recent psa looks good Pt advised documented in this encounter [facility] 12-01-2024 Telephone encounter Note Pt called to cancel appt today due to the FLU, he had PSA in NOV and wants to know if another PSA is needed before his new appt 04/27/25, please advise [facility] 12-01-2024 Telephone encounter Note I ordered a psa have him obtain a week or so prior. His most recent psa looks good [facility] 12-01-2024 [facility]phone encounter [email or web address] Miscellaneous Notes Lvm to call back and schedule follow up appt documented in this encounter [facility] 04-08-2024 Telephone encounter Note Lvm to call back and schedule follow up appt [facility] 03-05-2024 Hospital Discharge instructions Patient Education 03/05/2024 [...] numbers. This can be done either in [place] ([place] or metric measurements. Note that charts and online BMI calculators are available to help you find your BMI quickly and easily without having to do these calculations yourself. To calculate your BMI in [place] ([place] measurements: 1.Measure your weight in pounds [...] Centers for Disease Control and Prevention: www.cdc.gov [place] [employer]: www.heart.org National Heart, Lung, and Blood [place]: www.nhlbi.nih.gov Summary Body mass index (BMI) is a number that is calculated from a person's weight and height. BMI may help estimate how much of a person's weight is composed of fat. BMI can help identify those who may be at higher risk for certain medical problems. BMI can be measured using [place] measurements or metric measurements. BMI charts are used to identify whether you are underweight, normal weight, overweight, or obese. This information is not intended to replace advice given to you by your health care provider. Make sure you discuss any questions you have with your health care provider. Document Revised: 07/06/2020 Document Reviewed: 05/13/2020 [employer] Patient Education 2022 [employer]. 03/05/2024 09:47:24 Cervical Sprain, [id number] Cervical Sprain A cervical sprain is also [...] Follow these instructions at home: Medicines Take wxhg-rol-pettwwt and prescription medicines only as told by your doctor. Ask your doctor if the medicine prescribed to you: ?Requires you to avoid driving or using heavy machinery. ?Can cause trouble pooping (constipation). You may need to take these actions to prevent or treat trouble pooping: ?Drink enough fluid to keep your pee (urine) pale yellow. ?Take ztxc-nwc-[id number] or prescription medicines. ?Eat foods that are [...] provider. Document Revised: 01/21/2023 Document Reviewed: 06/22/2020 [employer] Patient Education 2022 [employer]. [facility] 12-11-2023 History of Present [...] Visit: 1 year documented in this encounter [facility] 12-02-2023 Evaluation note Encounter Date Diagnosis Assessment [...] ADR w/ stopping and starting medication: flushing [facility] [employer] Other 12-27-2023 Evaluation note* Encounter Date Diagnosis [...] No adverse effects from use of Adipex [facility] Other 11-29-2023 Evaluation note* Encounter Date Diagnosis [...] he denies CP, tremors, insomnia or palpitations [facility] Other 10-30-2023 Evaluation note* Encounter Date Diagnosis [...] develops chest pain, palpitations, tremors or insomnia. [facility] Other 06-20-2023 Evaluation note* Encounter Date Diagnosis [...] index [BMI] 33.0-33.9, adult (ICD-10 - Z68.33) 20 [place], 2023 Encounter for medication management (ICD-10 - Z79.899) No adverse reaction to medication. Medication with therapeutic benefit [facility] Other 01-24-2023 Evaluation note* Encounter Date Diagnosis [...] Reassured, initiated drug treatment. Side effects discussed. [facility] [employer] Other Evaluation + Plan note No data available for this section [facility] Evaluation note* Diagnosis Atopic dermatitis, unspecified type Epidermal inclusion cyst Sebaceous cyst Neoplasm of unspecified behavior of bone, soft tissue, and skin Sebaceous hyperplasia of face Melanocytic nevus of trunk Benign neoplasm of skin of trunk, except scrotum Angioma of skin documented in this encounter [facility]* Diagnosis Prostate cancer (CMS-HCC)- Primary Malignant neoplasm of prostate Prostate cancer (CMS-HCC)- Primary Malignant neoplasm of prostate Prostate cancer (CMS-HCC)- Primary Malignant neoplasm of prostate Prostate cancer (CMS-HCC)- Primary Malignant neoplasm of prostate Prostate cancer (CMS-HCC)- Primary Malignant neoplasm of prostate Prostate cancer (CMS-HCC)- Primary Malignant neoplasm of prostate [facility] Diagnosis Melanocytic nevus of trunk Benign neoplasm of skin of trunk, except scrotum Other atopic dermatitis Seborrheic keratosis History of basal cell carcinoma Personal history of other malignant neoplasm of skin Neoplasm of unspecified behavior of bone, soft tissue, and skin documented in this encounter [facility]* Diagnosis Prostate cancer (CMS-HCC)- Primary Malignant neoplasm of prostate [facility] Diagnosis Onset Date Resolution Status Admit Date Anemia acute March 10, 2025 2:37pm Colon polyp acute March 10 2:37pm Elevated cholesterol acute March 10, 2025 2:37pm LARRY (generalized anxiety disorder) acute March 10, 2025 2 :37pm Hypertension acute March 10 2:37pm Obesity acute March 10, 2025 2:37pm Prostate cancer acute March 10, 2025 2:37pm Tinnitus, bilateral acute February 252024 2:37pm Wellness examination noneactive March 10, 2025 2:37pm [facility] Work Phone: [facility] general Narrative - Reported* Type Description Date [...] COLONOSCOPY 2021 Hospitalization History SEE SURGICAL HX [employer] Other InstructionsNot on filedocumented in this [facility] No data available for this section [facility] Summary Purpose Family History Relationship Condition Age at Onset Recorded Date/T carmelita father Malignant neoplasm of bone Unknown Malignant neoplasm of prostate Unknown mother Atrial fibrillation Unknown father Malignant neoplasm Unknown Unknown mother Heart disease Unknown brother Malignant neoplasm Unknown Advance Directives Documents on File Type Date Recorded 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 Living Will 12/29/2019 1:14 PM Date Activated Date Inactivated Comments 12/16/2019 6:10 AM 12/16/2019 6:11 PM Advance Directive Response Recorded Date/ Time Advance Directives No May 01 9:02am Chief Complaint and Reason for Visit Chief Complaint Admit Date wellness March 10, 2025 2:37p m Reason for Visit Admit Date Anemia March 10, 2025 2:37p m Colon polyp March 10, 2025 2:37p m Elevated cholesterol March 10, 2025 2:37 pm LARRY (generalized anxiety disorder) February 252024 2:37pm Hypertension March 10, 2025 2:37p m Obesity May 14th, 2025 2:37p m Prostate cancer March 10, 2025 2:37p m Tinnitus, bilateral March 10, 2025 2:37p m Wellness examination March 10, 2025 2:37 pm Additional Source Comments (unrecognized sect ion and content) No Status Records FoundNo Status Records FoundNo Status Records FoundNo Status Records Found INFORMATION SOURCE (unrecogn ized section and content) DATE CREATED AUTHOR 05/08/2022 [facility] DATE CREATED AUTHOR AUTHOR'S ORGANIZ ATION 04/05/2023 [facility] DATE CREATED AUTHOR AUTHOR'S ORGANIZ ATION 03/07/2024 [facility] DATE CREATED AUTHOR AUTHOR'S ORGANIZ ATION 12/12/2024 [facility] EPIC REASON FOR VISIT (unrecogniz ed section and content) Reason Comments Skin Check Reason Comments Skin Check Follow-up Patient Care team informatio n (unrecognized section and content) 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 Specialty Start [place] [address] [place], [place] [phone] PCP - General Internal Medicine 09/10/19 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 Specialty Start Date End Date Cb Guerrero DO [address] [place], [place] [id number] PCP - General Internal Medicine 09/10/19 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 Specialty Start Date End Date Cb Guerrero MD [address] [place] [id number] PCP - General Internal Medicine 12/25/23 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 Specialty Start Date End Date Cb Guerrero MD [address] [place] [id number] PCP - General Internal Medicine 12/25/23 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 Specialty Start [place] [address] [place] [id number] PCP - General Internal Medicine 09/10/19 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 [facility]. provides no warranty or guarantee of the accuracy or completeness of information in this document.
[2025-03-17 15:41] LABS: Albumin Globulin Ratio 1.4; Albumin Level 3.9 g/dL (3.4-5.0); Alkaline Phosphatase 62 U/L (46-116); Anion Gap 15.6; Aspartate Amino Transferase 15 U/L (15-37); BUN Creatinine Ratio 19.3; Bilirubin Total 0.5 mg/dL (0.2-1.0); Calcium 9.2 mg/dL (8.5-10.1); Carbon Dioxide 25.6 mmol/L (21.0-32.0); Chloride 103 mmol/L (98-107); Chol HDL Ratio 3.4; Cholesterol 155 mg/dL (<=200); Estimated GFR (African America >60 (>=60 mL/min/1.73m^2); Estimated GFR (Non-African Ame >60 (>=60 mL/min/1.73m^2); Globulin 2.7 g/dL; Glucose 100 mg/dL (74-106); HDL Cholesterol 45 mg/dL (40-60); LDL Cholesterol Calculated 96.8 mg/dL; Potassium 4.2 mmol/L (3.5-5.1); Sodium 140 mmol/L (136-145); Total Protein 6.6 g/dL (6.4-8.2); Triglycerides 66 mg/dL (<=150); VLDL CHOLESTEROL 13.2 mg/dL
[2025-03-17 15:46] LABS: Basophils Absolute Auto 0.1 10^3/uL (0.0-0.1); Basophils Percent Auto 0.7 % (0.2-2.0); Eosinophils Absolute Auto 0.2 10^3/uL (0.0-0.7); Eosinophils Percent Auto 2.1 % (0.9-7.0); Hematocrit 40.2 % (42.0-54.0); Hemoglobin 13.4 g/dL (14.0-18.0); Immature Granulocytes Abs Auto 0.06 10^3/uL (0.00-0.03); Immature Granulocytes Pct Auto 0.8 % (0.0-0.5); Lymphocytes Absolute Auto 2.1 10^3/uL (1.2-3.8); Mean Corpuscular HGB Conc 33.3 g/dL (29.9-35.2); Mean Corpuscular Hemoglobin 26.4 pg (25.9-34.0); Mean Corpuscular Volume 79.3 fL (80.0-94.0); Monocytes Absolute Auto 0.7 10^3/uL (0.3-0.8); Monocytes Percent Auto 9.6 % (1.7-12.0); Neutrophils Absolute Auto 4.2 10^3/uL (1.4-6.5); Neutrophils Percent Auto 57.8 % (43.0-75.0); Platelet Count 239 10^3/uL (150-450); Red Blood Count 5.07 10^6/uL (4.70-6.10); Red Cell Distribution Width 12.8 % (11.0-15.0); White Blood Count 7.3 10^3/uL (4.0-11.0)
[2025-03-17 15:54] LABS: Alanine Aminotransferase 31 U/L (16-63)
== END 2025-03-17 15:09 | disposition home or self-care (01) ==
LOC: LAB 15:09
PROVIDERS: PCP Internal Medicine; Visit Provider Internal Medicine
DX: Z00.00 Encounter for general adult medical examination without abnormal findings (principal)
CPT/HCPCS: 36415; 80053; 80061; 85025

== ENCOUNTER 2025-04-27 07:22 | Outpatient (OUT) | payer OTHER, SELFPAY ==
--- OUTSIDE RECORDS SUMMARY | 2025-04-27 07:25 | XMS_ITS | CCD ---
Author Organization [facility] Care Team Providers Care Shipper Receiver Name Role Phone Cb Guerrero Unavailable CESAR, [...] Care Provider UnavailCB Tejada Primary Care Physician [phone] Violeta Loya Attending Unavailable Cb Guerrero DO [...] Bedtime, # 10 tab(s), Refills(s) 0, Pharmacy: [facility]/pharmacy #[id number], 172, cm, 03/05/24 9:18:00 EDT, Height/Length [...] day(s), # 10 tab(s), Refills(s) 0, Pharmacy: [facility]/pharmacy #[id number], 172, cm, 03/05/24 9:18:00 EDT, Height/Length [...] 12-11-2023 Episodic Other aftercare (5 sources) 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 Episodic Other and unspecified [...] yes Amount of lidocaine used: 0.5 cc [facility] Ambulatory Visit Summaryon 0 03-05-2024 Ambulatory Visit [...] At bedtime Sprain of neck Pickup at [facility]/pharmacy #[id number] New predniSONE (predniSONE 20 mg Tab) 2 Tablets By Mouth Every day Sprain of neck Duration: 5 Days Pickup at [facility]/pharmacy #[id number] Unchanged Non-Formulary Medication (Misc Medication) See instructions Unchanged rosuvastatin (rosuvastatin 20 mg Tab) Pharmacy Information [facility]/pharmacy #[id number]: [address] [place], [place] [id number] [phone] Allergies No Known Allergies Problems Ongoing - [...] for choosing us for your care. Normal [facility] Family Medicine Office/Clini c Noteon 03-05-2024 Family Medicine Office/Clinic Note Chief Complaint neck pain HPI Staff 53 year old male presents with neck pain since saturday. Patient was playing golf and felt pain on right shoulder after a swing. Pain is radiating to neck. Limited range of motion. History of Present Illness Reviewed and agree with above documented HPI by medical claims representative. Patient is a 53-year-old male who presents [...] Bedtime, # 10 tab(s), Refills(s) 0, Pharmacy: [facility]/pharmacy #[id number], 172, cm, 03/05/24 9:18:00 EDT, Height/Length Dosing, 104.5, kg, 03/05/24 9:18:00 EDT, Weight Dosing predniSONE, 40 mg = 2 tab(s), Oral, Daily, X 5 day(s), # 10 tab(s), Refills(s) 0, Pharmacy: [facility]/pharmacy #[id number], 172, cm, 03/05/24 9:18:00 EDT, Height/Length [...] with voice recognition artificial intelligence software, specifically [place] [employer], [employer] and or [employer] (more content not included)... Normal [facility] Comment on above: Result Comment: Wiley marally [...] numbers. This can be done either in [place]ian (U.[place] or metric measurements. Note that charts and online BMI calculators are available to help you find your BMI quickly and easily without having to do these calculations yourself. To calculate your BMI in Malian (U.S.) measurements: 1. Measure your weight in [...] for Disease Control and Prevention: www.cdc.gov ? [place] Heart Association: www.heart.org ? National Heart, Lung, and Blood [employer]: www.nhlbi.nih.gov Summary ? Body mass index (BMI) is a number that is calculated from a person's weight and height. ? BMI may help estimate how much of a person's weight is composed of fat. BMI can help identify those who may be at higher risk for certain medical problems. ? BMI can be measured using Malian measurements or metric measurements. ? BMI charts are used to identify whether you are underweight, normal weight, overweight, or obese. This information is not intended to replace advice given to you by your health care provider. Make sure you discuss any questions you have with your health care provider. Document Revised: 07/06/2020 Document Reviewed: 05/13/2020 Elsevier Patient Education ? 2022 [employer] Orthopedics Cervical Sprain A cervical sprain [...] a vehicle (more content not included)... Normal [facility] Patient Letter FTon 2023 Patient Letter [facility] [address] [place] [address] March 05, 2024 VISHAL MACHADO [address] [place] [address] [place] [address] : 1970 Please excuse VISHAL MACHADO from work . He was being seen at [facility]. May return to work on: 03/05/2024 Restrictions: None Comments: Please excuse due to an acute illness. Provider Signature: Violeta Loya CNP [address] [place] [address] [place] [address] Normal [facility] MR KNEE LEFT WO IV CONTRASTo n [...] yes Amount of lidocaine used: 0.5 cc [facility] [employer] [facility] [employer] CBC AUTO DIFFon 03-23-2023 BASO # 0.0 103/ul Normal 0.0-0.1 [facility] Comment on above: Performed By: #### C BC #### [facility] [address] [address] [address] Carmen Schmidt Basophils/100 WBC (Bld) 0.8 % Normal 0.2-2.0 [facility] Comment on above: Performed By: #### C BC #### [facility] [address] [address] [address] Carmen Schmidt EO # 0.1 103/ul Normal 0.0-0.7 [facility] Comment on above: Performed By: #### C BC #### [facility] [address] [place] [address] Dr. Carmen Schmidt Eosinophils/100 WBC (Bld) 2.2 % Normal 0.9-7.0 [facility] Comment on above: Performed By: #### C BC #### [facility] [address] [place] [address] Dr. Carmen Schmidt Erythrocyte distribution width (RBC) [Ratio] 13.2 % Normal 11.0-15.0 [facility] Comment on above: Performed By: #### C BC #### [facility] [address] [place] [address] Dr. Carmen Schmidt Hematocrit (Bld) [Volume fraction] 41.0 % Critically low 42.0-54.0 [facility] Comment on above: Performed By: #### C BC #### [facility] [address] [place] [address] Dr. Carmen Schmidt Hemoglobin (Bld) [Mass/Vol] 14.7 g/dL Normal 14.0-18.0 [facility] Comment on above: Performed By: #### C BC #### [facility] [address] [place] [address] Dr. Carmen Schmidt IG # 0.04 10e3/ul Critically high 0.00-0.03 [facility] Comment on above: Performed By: #### C BC #### [facility] [address] [place] [address] Dr. Carmen Schmidt IG % 0.8 % Critically high 0.0-0.5 [facility] Comment on above: Performed By: #### C BC #### [facility] [address] [place] [address] Dr. Carmen Schmidt LYMPH # 1.9 103/ul Normal 1.2-3.8 [facility] Comment on above: Performed By: #### C BC #### [facility] [address] [place] [address] Dr. Carmen Schmidt Lymphocytes/100 WBC (Bld) 37.0 % Normal 20.5-60.0 [facility] Comment on above: Performed By: #### C BC #### [facility] [address] [place] [address] Dr. Carmen Schmidt MANUAL DIFF REQ NO Normal [facility] Comment on above: Performed By: #### C BC #### [facility] [address] [place] [address] Dr. Carmen Schmidt MCH (RBC) [Entitic mass] 30.4 pg Normal 25.9-34.0 [facility] Comment on above: Performed By: #### C BC #### [facility] [address] [place] [address] Dr. Carmen Schmidt MCHC (RBC) [Mass/Vol] 35.9 g/dL Critically high 29.9-35.2 [facility] Comment on above: Performed By: #### C BC #### [facility] [address] [place] [address] Dr. Carmen Schmidt MCV (RBC) [Entitic vol] 84.9 fL Normal 80.0-94.0 [facility] Comment on above: Performed By: #### C BC #### [facility] [address] [place] [address] Dr. Carmen Schmidt MONO # 0.6 103/ul Normal 0.3-0.8 [facility] Comment on above: Performed By: #### C BC #### [facility] [address] [place] [address] Dr. Carmen Schmidt Monocytes/100 WBC (Bld) 11.9 % Normal 1.7-12.0 [facility] Comment on above: Performed By: #### C BC #### [facility] [address] [place] [address] Dr. Carmen Schmidt NEUT # 2.4 103/ul Normal 1.4-6.5 [facility] Comment on above: Performed By: #### C BC #### [facility] [address] [place] [address] Dr. Carmen Schmidt Neutrophils/100 WBC (Bld) 47.3 % Normal 43.0-75.0 [facility] Comment on above: Performed By: #### C BC #### [facility] [address] [place] [address] Dr. Carmen Schmidt Platelet mean volume (Bld) [Entitic vol] 9.5 fL Normal 9.5-13.5 [facility] Comment on above: Performed By: #### C BC #### [facility] [address] [place] [address] Dr. Carmen Schmidt PLT 223 103/ul Normal 150-450 [facility] Comment on above: Performed By: #### C BC #### [facility] [address] [place] [address] Dr. Carmen Schmidt RBC 4.83 106/ul Normal 4.70-6.10 [facility] Comment on above: Performed By: #### C BC #### [facility] [address] [place] [address] Dr. Carmen Schmidt WBC 5.0 103/ul Normal 4.0-11.0 [facility] Comment on above: Performed By: #### C BC #### [facility] [address] [place] [address] Dr. Carmen Schmidt LIPID PROFILEon 03-23-2023 CHOL-HDL RATIO NORM SEE BELOW Normal [facility] Comment on above: Result Comment: 3.3 - 4.4 LOW RISK 4.4 - 7.1 AVERAGE RISK 7.1 - 11.0 MODERATE RISK >11.0 HIGH RISK Performed By: #### C MP, LIPID #### [facility] [address] [place] [address] Dr. Carmen Schmidt Cholesterol [Mass/Vol] 108 mg/dL Normal <=200 [facility] Comment on above: Performed By: #### C MP, LIPID #### [facility] [address] [place] [address] Dr. Carmen Schmidt Cholesterol in HDL [Mass/Vol] 35 mg/dL Critically low 40-60 [facility] Comment on above: Performed By: #### C MP, LIPID #### [facility] [address] [address] [address] Carmen Schmidt Cholesterol in LDL [Mass/Vol] 60.4 mg/dL Normal [facility] Comment on above: Performed By: #### C MP, LIPID #### [facility] [address] [address] [address] Carmen Schmidt Cholesterol.total/ Cholesterol in HDL [Mass ratio] 3.1 {ratio} Normal [facility] Comment on above: Performed By: #### C MP, LIPID #### [facility] [address] [address] [address] Carmen Schmidt HDL NORMAL > or = 60 mg/dl - LO W CARDIOVASCULAR RISK <40 mg/dl - HIGH CARDIOVASCULAR RISK Normal [facility] Comment on above: Performed By: #### C MP, LIPID #### [facility] [address] [place] [address] Dr. Carmen Schmidt LDL CALC NORMAL SEE BELOW Normal [facility] Comment on above: Result Comment: <100 mg/dl OPTIMAL 100 - 129 mg/dl NEAR OR ABOVE OPTIMAL 130 - 159 mg/dl BORDERLINE HIGH 160 - 189 mg/dl HIGH >190 mg/dl VERY HIGH Performed By: #### C MP, LIPID #### [facility] [address] [place] [address] Dr. Carmen Schmidt Triglyceride [Mass/Vol] 63 mg/dL Normal <=150 [facility] Comment on above: Performed By: #### C MP, LIPID #### [facility] [address] [place] [address] Dr. Carmen Schmidt VLDL CALC 12.6 mg/dL Normal [facility] Comment on above: Performed By: #### C MP, LIPID #### [facility] [address] [place] [address] Dr. Carmen Schmidt PROF 14(COMP METB)on 023 Albumin [Mass/Vol] 4.3 g/dL Normal 3.4-5.[address] [facility] Comment on above: Performed By: #### C MP, LIPID #### [facility] [address] [address] [address] Carmen Schmidt Albumin/Globulin [Mass ratio] 1.5 {ratio} Normal [facility] Comment on above: Performed By: #### C MP, LIPID #### [facility] [address] [address] [address] Carmen Schmidt ALP [Catalytic activity/Vol] 69 U/L Normal 46-116 [facility] Comment on above: Performed By: #### C MP, LIPID #### [facility] [address] [address] [address] Carmen Schmidt ALT [Catalytic activity/Vol] 31 U/L Normal 16-63 [facility] Comment on above: Performed By: #### C MP, LIPID #### [facility] [address] [place] [address] Dr. Carmen Schmidt Anion gap [Moles/Vol] 15.7 mmol/L Normal [facility] Comment on above: Performed By: #### C MP, LIPID #### [facility] [address] [place] [address] Dr. Carmen Schmidt AST [Catalytic activity/Vol] 17 U/L Normal 15-37 [facility] Comment on above: Performed By: #### C MP, LIPID #### [facility] [address] [place] [address] Dr. Carmen Schmidt Bilirubin [Mass/Vol] 0.6 mg/dL Normal 0.2-1.0 [facility] Comment on above: Performed By: #### C MP, LIPID #### [facility] [address] [place] [address] Dr. Carmen Schmidt Calcium [Mass/Vol] 8.9 mg/dL Normal 8.5-10.1 [facility] Comment on above: Performed By: #### C MP, LIPID #### [facility] [address] [place] [address] Dr. Carmen Schmidt Chloride [Moles/Vol] 106 mmol/L Normal 98-107 [facility] Comment on above: Performed By: #### C MP, LIPID #### [facility] [address] [address] [address] Carmen Schmidt CO2 [Moles/Vol] 26.2 mmol/L Normal 21.0-32.0 [facility] Comment on above: Performed By: #### C MP, LIPID #### [facility] [address] [address] [address] Carmen Schmidt Creatinine [Mass/Vol] 0.70 mg/dL Normal 0.70-1.30 [facility] Comment on above: Performed By: #### C MP, LIPID #### [facility] [address] [address] [address] Carmen Schmidt EGFR-AF BURMESE >60 Normal >=60 [facility] Comment on above: Performed By: #### C MP, LIPID #### [facility] [address] [place] [address] Dr. Carmen Schmidt EGFR-NON AF BURMESE >60 Normal >=60 [facility] Comment on above: Performed By: #### C MP, LIPID #### [facility] [address] [place] [address] Dr. Carmen Schmidt Globulin (S) [Mass/Vol] 2.9 g/dL Normal [facility] Comment on above: Performed By: #### C MP, LIPID #### [facility] [address] [place] [address] Dr. Carmen Schmidt Glucose [Mass/Vol] 103 mg/dL Normal 74-106 [facility] Comment on above: Performed By: #### C MP, LIPID #### [facility] [address] [address] [address] Carmen Schmidt Potassium [Moles/Vol] 4.9 mmol/L Normal 3.5-5.1 [facility] Comment on above: Performed By: #### C MP, LIPID #### [facility] [address] [address] [address] Carmen Schmidt Protein [Mass/Vol] 7.2 g/dL Normal 6.4-8.2 [facility] Comment on above: Performed By: #### C MP, LIPID #### [facility] [address] [address] [address] Carmen Schmidt Sodium [Moles/Vol] 143 mmol/L Normal 136-[address] [facility] Comment on above: Performed By: #### C MP, LIPID #### [facility] [address] [place] [address] Dr. Carmen Schmidt Urea nitrogen [Mass/Vol] 9.0 mg/dL Normal 7.0-18.0 [facility] Comment on above: Performed By: #### C MP, LIPID #### [facility] [address] [address] [address] Carmen Schmidt Urea nitrogen/Creatinin e [Mass ratio] 12.9 mg/mg Normal [facility] Comment on above: Performed By: #### C IRWIN, LIPID #### [facility] [address] [address] [address] Carmen Singh 05-03-2022 L --- Specimen: [id number] Received: 05/03/22 Status: ANA M Rangel Num: [id number] Spec Type: Surgical Subm Dr: Francisco Coleman MD Tissues: A Colon - Polyp (ASCENDING POLYP) B Colon Biopsy (SIGMOID) C Colon - Polyp (SIGMOID POLYP) Procedures: HE Stain/6, Gross/Micro L4/3 Patient Age/Sex Location Account Attending Physician JeannetteVishal cheng Uum 51/M [id number] Francisco Coleman MD SPEC NUM: [id number] RECD: 05/03/22 STATUS: ANA M RANGEL NUM: [id number] SUDHAKAR: 05/03/22- SUBM DR: Francisco Coleman MD ENTERED: 05/03/22-1108 [facility] DR: MOHIT TYPE: Surgical DEPT: [...] number and polyp sigmoid are two Specimen: [id number] Received: 05/03/22 Status: ANA M Rangel Num: [id number] Spec Type: Surgical Subm Dr: Francisco Coleman MD Tissues: A Colon - Polyp (ASCENDING POLYP) B Colon Biopsy (SIGMOID) C Colon - Polyp (SIGMOID POLYP) Procedures: HE Stain/6, Gross/Micro L4/3 Patient: Vishal Machado [id number] (Continued) Specimen: [id number] Received: 05/03/22 (Continued) Gross Description (Continued) Signed (signature on file) Lois Chong MD 05/04/22 1534 Specimen: Received: 05/03/22 Status: ANA M Rangel Num: [id number] Spec Type: Surgical Subm Dr: Francisco Coleman MD Tissues: A Colon - Polyp (ASCENDING POLYP) B Colon Biopsy (SIGMOID) C Colon - Polyp (SIGMOID POLYP) Procedures: HE Stain/6, Gross/Micro L4/3 Patient: Vishal Machado Umu [id number] (Continued) Specimen: [id number] Received: 05/03/22 (Continued) Gross Description (Continued) fragments [...] support the above pathologic diagnosis. CPT Codes 64653?3 Specimen: [id number] Received: 05/03/22 Status: ANA M Rangel Num: [id number] Spec Type: Surgical Subm Dr: Francisco Coleman MD Tissues: A Colon - Polyp (ASCENDING POLYP) B Colon Biopsy (SIGMOID) C Colon - Polyp (SIGMOID POLYP) Procedures: HE Stain/6, Gross/Micro L4/3 Patient: Vishal Machado [id number] (Continued) Signed (signature on file) Lois Chong MD 05/04/[address] [facility] COVID-19 Antigenon 2 COVID-19 Antigen Healthcare [...] developed and its performance characteristic determined by [employer] and validated at [facility]. This test has not been FDA [...] for SARS Antigen by [facility] PERFORMED BY: [place] [address] PATHOLOGIST PAN PUSHER LAKHWINDER REYES M.D. [facility] Comment on above: Performed By: #### S RADHA COVID-19 MINAL #### [address] M[facility] Ag Negativeon 05-01-20 22 Minal Ag Negative Negative Normal Negative [facility] Comment on above: Result Comment: This is a duplicate [facility] SARS Antigen ([facility]INDA) result to be used for statistical tracking purpose only. PERFORMED BY: [place] [address] PATHOLOGIST PAN PUSHER LAKHWINDER REYES M.D. Performed By: #### S OFVELMA, COVID-19 MINAL #### [place] [address] [facility] [[email or web address]] Vital Signs Date Time Vital Sign Value Performing Clinician Facility 03-10-2025 15:08-0400 Body height 172.72 cm [facility] 03-10-2025 15:08-0400 Body mass index (BMI) [Ratio] 34.7 kg/m2 [facility] 03-10-2025 15:08-0400 Body weight 103.53 kg [facility] 03-10-2025 15:08-0400 Diastolic blood pressure 88 mm[Hg] [facility] 03-10-2025 15:08-0400 Heart rate 118 /min [facility] 03-10-2025 15:08-0400 Respiratory rate 12 /min [facility] 03-10-2025 15:08-0400 Systolic blood pressure 134 mm[Hg] [facility] 03-05-2024 09:15-0400 Blood Pressure Location [facility] 03-05-2024 09:15-0400 Body temperature 97.7 [degF] [facility] 03-05-2024 09:15-0400 Diastolic blood pressure 102 mm[Hg] [facility] 03-05-2024 09:15-0400 Heart rate 93 /min [facility] 03-05-2024 09:15-0400 SaO2% (BldA) [Mass fraction] 97 % [facility] 03-05-2024 09:15-0400 Systolic blood pressure 144 mm[Hg] [facility] 12-02-2023 14:30-0500 Body height 172.72 cm Cb Qumu Other [employer] [facility] [employer] Other 12-02-2023 14:30-0500 Body mass index (BMI) [Ratio] 34.15 kg/m2 Cb Ball Other [facility] Other 12-02-2023 14:30-0500 Body weight 101.88 kg Cb Ball Other [facility] Other 12-02-2023 14:30-0500 Diastolic blood pressure 78 mm[Hg] Cb Ball Other [facility] Other 12-02-2023 14:30-0500 Respiratory rate 12 /min Cb Ball Other [facility] Other 12-02-2023 14:30-0500 Systolic blood pressure 136 mm[Hg] Cb Ball Other [facility] Other 10-23-2023 15:00-0500 Body height 172.72 cm Cb Ball Other [facility] Other 10-23-2023 15:00-0500 Body mass index (BMI) [Ratio] 34.88 kg/m2 Cb Ball Other [facility] Other 10-23-2023 15:00-0500 Body weight 104.06 kg Cb Ball Other [facility] Other 10-23-2023 15:00-0500 Diastolic blood pressure 92 mm[Hg] Cb Ball Other [facility] Other 10-23-2023 15:00-0500 Respiratory rate 12 /min Cb Ball Other [facility] Other 10-23-2023 15:00-0500 Systolic blood pressure 152 mm[Hg] Cb Ball Other [facility] Other 09-25-2023 15:30-0500 Body height 172.72 cm Cb Ball Other [facility] Other 09-25-2023 15:30-0500 Body mass index (BMI) [Ratio] 34.3 kg/m2 Cb Ball Other [facility] Other 09-25-2023 15:30-0500 Body weight 102.33 kg Cb Ball Other [facility] Other 09-25-2023 15:30-0500 Diastolic blood pressure 91 mm[Hg] Cb Ball Other [facility] Other 09-25-2023 15:30-0500 Respiratory rate 12 /min Cb Ball Other [facility] Other 09-25-2023 15:30-0500 Systolic blood pressure 142 mm[Hg] Cb Ball Other [facility] Other 08-26-2023 14:30-0400 Body height 172.72 cm Cb Ball Other [facility] Other 08-26-2023 14:30-0400 Body mass index (BMI) [Ratio] 35.55 kg/m2 Cb Ball Other [facility] Other 08-26-2023 14:30-0400 Body weight 106.05 kg Cb Ball Other [facility] Other 08-26-2023 14:30-0400 Diastolic blood pressure 86 mm[Hg] Cb Ball Other [facility] Other 08-26-2023 14:30-0400 Respiratory rate 12 /min Cb Ball Other [facility] Other 08-26-2023 14:30-0400 Systolic blood pressure 138 mm[Hg] Cb Ball Other [facility] Other 04-16-2023 14:15-0400 Body height 172.72 cm Cb Ball Other [facility] Other 04-16-2023 14:15-0400 Body mass index (BMI) [Ratio] 33.63 kg/m2 Cb Ball Other [facility] Other 04-16-2023 14:15-0400 Body weight 100.34 kg Cb Ball Other [facility] Other 04-16-2023 14:15-0400 Diastolic blood pressure 82 mm[Hg] Cb Ball Other [facility] Other 04-16-2023 14:15-0400 Respiratory rate 12 /min Cb Ball Other [facility] Other 04-16-2023 14:15-0400 Systolic blood pressure 132 mm[Hg] Cb Ball Other [facility] Other 11-20-2022 15:00-0500 Body height 172.72 cm Cb Ball Other [facility] Other 11-20-2022 15:00-0500 Body mass index (BMI) [Ratio] 37.43 kg/m2 Cb Ball Other [facility] Other 11-20-2022 15:00-0500 Body weight 111.68 kg Cb Ball Other [facility] Other 11-20-2022 15:00-0500 Diastolic blood pressure 82 mm[Hg] Cb Ball Other [facility] Other 11-20-2022 15:00-0500 Respiratory rate 12 /min Cb Ball Other [facility] Other 11-20-2022 15:00-0500 Systolic blood pressure 132 mm[Hg] Cb Guerrero Other [facility] Other Encounters Encounter Date Encounter Type Care Provider Facility Start: 03-10-2025 End: 03-10-2025 ambulatory [facility] Work Phone: Start: 03-10-2025 End: 03-10-2025 Encounter for general adult medical examination without abnormal findings [facility] Start: 03-10-2025 End: 03-10-2025 Patient encounter procedure [facility] Work Phone: Start: 12-10-2024 End: 12-10-2024 Office outpatient visit 15 minutes Blanca Mijareslaurel STOCK ASSOCIATE-SENIOR VICE PRESIDENT Work Phone: [facility] Comment on above: Melanocytic nevus of trunk; Other atopic dermatitis; Seborrheic keratosis; History of basal cell carcinoma; Neoplasm of unspecified behavior of bone, soft tissue, and skin Start: 12-10-2024 End: 12-10-2024 ambulatory BLANCA Kingsley FELTER Not Available Start: 12-10-2024 End: 12-10-2024 Bamboo flowsheet Blanca Kingsley Felter STOCK ASSOCIATE-SENIOR VICE PRESIDENT Work Phone: [facility] Start: 12-10-2024 End: 12-10-2024 Bamboo flowsheet Blanca Kingsley Felter STOCK ASSOCIATE-SENIOR VICE PRESIDENT Work Phone: [facility] Start: 12-01-2024 End: 12-01-2024 Orders [...] End: 03-05-2024 Patient encounter procedure Violeta Loya [facility] Start: 02-11-2024 End: 02-11-2024 ambulatory LANCE GALICIA Not Available Start: 01-31-2024 End: 01-31-2024 ambulatory KATIE Ordoñez APLING Not Available Start: 01-29-2024 End: 01-29-2024 ambulatory JAIME BURDICK Not Available Start: 01-22-2024 End: 01-22-2024 ambulatory KATIE Ordoñez APLING Not Available Start: 12-25-2023 End: 12-25-2023 ambulatory KATIE Ordoñez APLING Not Available Start: 12-11-2023 End: 12-11-2023 Office outpatient visit 15 minutes Blanca Sánchez STOCK ASSOCIATE-SENIOR VICE PRESIDENT Work Phone: [facility] Comment on above: Atopic dermatitis, u nspecified type; Epidermal inclusion cyst; Neoplasm of unspecified behavior of bone, soft tissue, and skin; Sebaceous hyperplasia of face; Melanocytic nevus of trunk; Angioma of skin Start: 12-11-2023 [employer]amboo [employer] Blanca diaz STOCK ASSOCIATE-SENIOR VICE PRESIDENT Work Phone: [facility] Start: 12-11-[address] Blanca Mann ter STOCK ASSOCIATE-SENIOR VICE PRESIDENT Work Phone: [facility] Start: 12-02-2023 End: 12-02-2023 ambulatory Cb Guerrero Other [facility] Other Start: 12-02-2023 Office outpatient vi sit 15 minutes Cb Guerrero [facility] Start: 10-23-2023 End: 10-23-2023 ambulatory Cb Cesar Other [facility] Other Start: 10-23-2023 Office outpatient vi sit 15 minutes Cb Guerrero [facility] Start: 09-25-2023 End: 09-25-2023 ambulatory Cb Guerrero Other [facility] Other Start: 09-25-2023 Office outpatient vi sit 15 minutes Cb Guerrero [facility] Start: 08-26-2023 End: 08-26-2023 ambulatory Cb Guerrero Other [facility] Other Start: 08-26-2023 Office outpatient vi sit 15 minutes Cb Guerrero [facility] Start: 04-16-2023 End: 04-16-2023 ambulatory Cb Guerrero Other [facility] Other Start: 04-16-2023 Office outpatient vi sit 15 minutes Cb Guerrero [facility] Start: 03-25-2023 Encounter for genera l adult medical examination without abnormal findings DR CB GUERRERO [facility] Start: 03-23-2023 End: 03-24-[address] CB GUERRERO Facility:[facility]1 Start: 03-23-2023 End: 03-24-2023 Encounter for general adult medical examination without abnormal findings DR CB GUERRERO Facility:[facility] Start: 01-11-2023 End: 01-12-[address] VIOLETA BLACK Facility:[facility] Start: 11-20-2022 End: 11-20-2022 ambulatory Cb Guerrero Other [facility] Other Start: 11-20-2022 Office outpatient vi sit 15 minutes Cb Guerrero [facility] Start: 07-13-2022 End: 07-14-[address] VIOLETA BLACK Facility:[facility]1 Procedures Date Procedure Procedure Detail Performing Clinician Start: 12-10-2024 SKIN / NAIL BIOPSY Christie Sánchez STOCK ASSOCIATE-SENIOR VICE PRESIDENT Work Phone: Start: 12-11-2023 SKIN / NAIL BIOPSY Christie Sánchez STOCK ASSOCIATE-SENIOR VICE PRESIDENT Work Phone: Start: 01-11-[address] KELLEN GUERRERO Comment on above: Performed By: #### P SAD #### [facility] [address] [place] [address] Dr. Carmen Schmidt Start: 07-13-[address] FOREMAN IN CESAR Comment on above: Performed By: #### P SAD #### [facility] [address] [place] [address] Dr. Carmen Schmidt Start: 08-05-2019 Transrectal biopsy o f prostate using ultrasound guidance Violeta Loya Arthroscopy of knee with lateral meniscus repair Violeta Loya Comment on above: Right Plan of Treatment Date Care Activity Detail Author Start: 12-09-2025 End: 12-09-2025 Patient encounter procedure 12/09/2025 3:20 PM EST Office Visit [facility] [address] [place] [phone] Blanca Sánchez, STOCK ASSOCIATE-SENIOR VICE PRESIDENT [address] [place] [address] [facility] Start: 04-27-2025 End: 04-27-2025 Patient encounter procedure 04/27/2025 2:15 PM EDT Office Visit [facility] [address] [place] [phone] Violeta Black MD [address] [place] [address] [phone] [facility] Start: 04-07-2025 End: 12-01-2025 Prostatic specific antigen, diagnostic Prostatic specific antigen, diagnostic Lab Routine Prostate cancer ([facility]) Expected: 04/07/2025 (Approximate), Expires: 12/01/2025 [facility] Work Phone: Comment on above: Expected: 04/07/2025 (Approximate), Expi res: 12/01/2025 Start: 12-10-2024 End: 12-10-2024 Patient encounter procedure [facility] Comment on above: Arrived Start: 12-01-2024 End: 12-01-2024 Patient encounter procedure 12/01/2024 2:45 PM EST Office Visit [facility] [address] [place] [phone] Violeta Black MD [facility] [place] [address] [facility] Start: 10-15-2024 End: 07-17-2025 Prostatic specific antigen, diagnostic Prostatic specific antigen, diagnostic Lab Routine Prostate cancer ([facility]) Expected: 10/15/2024, Expires: 07/17/2025 [facility] Work Phone: Comment on above: Expected: 10/15/2024, Expires: Start: 07-30-2024 Adult BMI Screening Adult BMI Screening [facility] Start: 07-30-2024 Tobacco Screening Tobacco Screening [facility] Start: 06-28-2024 COVID-19 Vaccine ( season) COVID-19 Vaccine () [facility] Start: 06-28-2024 COVID-19 Vaccine ( season) COVID-19 Vaccine ( season) [facility] Start: 06-28-2024 Influenza vaccination Influenza Vaccine [facility] Start: 12-11-2023 End: 12-11-2023 Patient encounter procedure 12/11/2023 3:40 PM EST Office Visit [facility] [address] [place] [address] Blanca Sánchez APRN-SENIOR VICE PRESIDENT [address] [place] [address] Arrived [facility] Comment on above: Arrived Start: 06-28-2023 COVID-19 Vaccine ( season) COVID-19 Vaccine () [facility] Start: 06-28-2023 Influenza vaccination Influenza Vaccine (#1) [facility] Start: 1987 DTaP,Tdap and Td Vaccines (1 - Tdap) DTaP,Tdap and Td Vaccines (1 - Tdap) [facility] Start: 1986 Adult BMI Follow Up Plan Adult BMI Follow Up Plan [facility] Start: 1980 Depression Screening Depression Screening [facility] Start: 1968 Screening for malignant neoplasm of colon [facility] Comprehensive metabo lic 2000 panel - Serum or Plasma [facility] Dermatopathology exam Dermatopat hology exam Pathology and Cytology Timed Neoplasm of unspecified behavior of bone, soft tissue, and skin Release Upon Ordering for 1 Occurrences starting 12/11/2023 [facility] [employer] Work Phone: Comment on above: Release Upon Ordering for 1 Occurrences starting 12/11/2023 Dermatopathology exam Dermatopat hology exam Pathology and Cytology Timed Neoplasm of unspecified behavior of bone, soft tissue, and skin Release Upon Ordering for 1 Occurrences starting 12/10/2024 [facility] [employer] Work Phone: Comment on above: Release Upon Ordering for 1 Occurrences starting 12/10/2024 [facility] Immunizations Immunization Date Immunization Notes Care Provider Juan Alberto enamorado 08-30-2023 influenza virus vaccine, unspecified formulation Mercedes Nieves [facility] 01-24-2023 zoster vaccine recombinant Cb Cesar Other [facility] 09-11-2022 zoster vaccine recombinant Cb Guerrero Other [facility] 09-11-2022 zoster vaccine, live Benjami janene Guerrero Other [facility] 07-12-2022 COVID-19 Vaccine Pfizer - Documentation Purposes Only Cb Guerrero Other [facility] 07-12-2022 influenza virus vaccine, split virus (incl. purified surface antigen) Cb Guerrero Other [employer] [facility] [employer] Other 07-12-2022 influenza virus vaccine, unspecified formulation [facility] 10-09-2021 COVID-19 Vaccine Pfizer - Documentation Purposes Only Cb Guerrero Other [facility] 08-02-2021 influenza virus vaccine, split virus (incl. purified surface antigen) Cb Guerrero Other [facility] Other 08-02-2021 influenza virus vaccine, unspecified formulation [facility] 02-07-2021 COVID-19 Vaccine Pfizer - Documentation Purposes Only Cb Guerrero Other [facility] 01-16-2021 COVID-19 Vaccine Pfizer - Documentation Purposes Only Cb Guerrero Other [facility] 09-13-2020 influenza virus vaccine, split virus (incl. purified surface antigen) Cb Guerrero Other [facility] [employer] Other 09-13-2020 influenza virus vaccine, unspecified formulation Blanca Mijareslaurel [facility] Work Phone: [facility] 10-05-2019 influenza virus vaccine, unspecified formulation Mercedes Nieves [facility] Payers Date Payer Category Payer Commercial Managed C are - POS [employer] [id number] 2023 Managed Care HMO (unspecified) [id number] 2023 Private Health Insurance [id number] 2019 Private Health Insurance [id number] 1968 Unknown [id number] [id number] 1968 Unknown [id number] 79.2.593 1968 Unknown [id number] 79.2.593 1968 Unknown [id number] [id number] 79.2.727 1968 Unknown [id number] [id number] 79.2.1259 1968 Unknown [id number] 79.2.1259 1968 Unknown [id number] [id number] 79.2.1259 1968 Unknown [id number] 79.2.1259 1968 Unknown [id number] [id number] 79.2.1259 1968 Unknown [id number] [id number] 79.2.1259 1968 Unknown [id number] 79.2.1259 1959 Private Health Insurance [id number] Private Health Insurance [id number] Unknown Ariana / [id number] Social History Date Type Detail Facility Start: 12-08-2020 End: 12-11-2023 Sex Assigned At [facility] Start: 11-18-2023 End: 03-10-2025 Tobacco smoking status MDIS Never smoked tobacco [facility] Start: 1970 Sex Assigned At Male [facility] Start: 10-13-2019 Gender identity Identifies as male gender (finding) [facility] Start: 10-13-2019 Sexual orientation Heterosexual (finding) [facility] Start: 12-08-2020 End: 12-11-2023 History of Social function [facility] Tobacco smoking status Never [facility] Start: 07-30-2023 End: 12-25-2023 Tobacco use and exposure Smokeless tobacco non-user [facility] Start: 07-30-2023 End: 12-10-2024 Alcoholic beverage intake Current drinker of alcohol (finding) [facility] Start: 09-10-2019 End: 03-10-2025 Sex Male (finding) [facility] Goals Date Patient Goal Desired Activity /State Personal health goal Comment on above: Formatting of this n ote might be different from the original. Evaluation of progress towards goal: patient plans to discharge home with spouse and home care Functional Status Date Assessment Result Facility 03-05-2024 Functional Status N/A [facility] Clinical Notes 11-20-2022 to 12-10-2024 [...] Visit: 1 year documented in this encounter [facility] 12-01-2024 Miscellaneous Notes Pt called to cancel appt today due to the FLU, he had PSA in NOV and wants to know if another PSA is needed before his new appt 04/27/25, please advise I ordered a psa have him obtain a week or so prior. His most recent psa looks good Pt advised documented in this encounter [facility] 12-01-2024 Telephone encounter Note Pt called to cancel appt today due to the FLU, he had PSA in NOV and wants to know if another PSA is needed before his new appt 04/27/25, please advise [facility] 12-01-2024 Telephone encounter Note I ordered a psa have him obtain a week or so prior. His most recent psa looks good [facility] 12-01-2024 Telephone encounter [facility] 04-08-2024 Miscellaneous Notes Lvm to call back and schedule follow up appt documented in this encounter [facility] 04-08-2024 Telephone encounter Note Lvm to call back and schedule follow up appt [facility] 03-05-2024 Hospital Discharge instructions Patient Education 03/05/2024 [...] numbers. This can be done either in [place]ian ([place].S[place] or metric measurements. Note that charts and online BMI calculators are available to help you find your BMI quickly and easily without having to do these calculations yourself. To calculate your BMI in Malian ([place].S.) measurements: 1.Measure your weight in pounds [...] Centers for Disease Control and Prevention: www.cdc.gov [place] Heart Association: www.heart.org National Heart, Lung, and Blood [employer]: www.nhlbi.nih.gov Summary Body mass index (BMI) is a number that is calculated from a person's weight and height. BMI may help estimate how much of a person's weight is composed of fat. BMI can help identify those who may be at higher risk for certain medical problems. BMI can be measured using Malian measurements or metric measurements. BMI charts are used to identify whether you are underweight, normal weight, overweight, or obese. This information is not intended to replace advice given to you by your health care provider. Make sure you discuss any questions you have with your health care provider. Document Revised: 07/06/2020 Document Reviewed: 05/13/2020 [employer] Patient Education 2022 [employer]. 03/05/2024 09:47:24 Cervical Sprain, Pwyo-qx-Ysqw Cervical Sprain A cervical sprain is also [...] Follow these instructions at home: Medicines Take hsmy-tnn-ohtipxk and prescription medicines only as told by your doctor. Ask your doctor if the medicine prescribed to you: ?Requires you to avoid driving or using heavy machinery. ?Can cause trouble pooping (constipation). You may need to take these actions to prevent or treat trouble pooping: ?Drink enough fluid to keep your pee (urine) pale yellow. ?Take pyun-naa-rnpyjmx or prescription medicines. ?Eat foods that are [...] provider. Document Revised: 01/21/2023 Document Reviewed: 06/22/2020 [employer] Patient Education 2022 [employer]. [facility] 12-11-2023 History of Present [...] Visit: 1 year documented in this encounter [facility] 12-02-2023 Evaluation note Encounter Date Diagnosis Assessment Notes Nov, Other obesity due to excess calories (ICD-10 - E66.09) This patient is aware of the benefits associated with SAMUEL: With continued use, the patient reduces the risk for MT, CVA, HTN, cardiac dysrhythmias and sudden cardiac [...] ADR w/ stopping and starting medication: flushing [facility] Other 12-27-2023 Evaluation note* Encounter Date Diagnosis [...] No adverse effects from use of Adipex [facility] Other 11-29-2023 Evaluation note* Encounter Date Diagnosis [...] he denies CP, tremors, insomnia or palpitations [facility] Other 10-30-2023 Evaluation note* Encounter Date Diagnosis [...] develops chest pain, palpitations, tremors or insomnia. [facility] Other 06-20-2023 Evaluation note* Encounter Date Diagnosis [...] reaction to medication. Medication with therapeutic benefit [facility] Other 01-24-2023 Evaluation note* Encounter Date Diagnosis [...] Reassured, initiated drug treatment. Side effects discussed. [facility] Other Evaluation + Plan note No data available for this section [facility] Evaluation note* Diagnosis Atopic dermatitis, unspecified type Epidermal inclusion cyst Sebaceous cyst Neoplasm of unspecified behavior of bone, soft tissue, and skin Sebaceous hyperplasia of face Melanocytic nevus of trunk Benign neoplasm of skin of trunk, except scrotum Angioma of skin documented in this encounter [facility] note* Diagnosis Prostate cancer (CMS-HCC)- Primary Malignant neoplasm of prostate Prostate cancer (CMS-HCC)- Primary Malignant neoplasm of prostate Prostate cancer (CMS-HCC)- Primary Malignant neoplasm of prostate Prostate cancer (CMS-HCC)- Primary Malignant neoplasm of prostate Prostate cancer (CMS-HCC)- Primary Malignant neoplasm of prostate Prostate cancer (CMS-HCC)- Primary Malignant neoplasm of prostate documented [facility] this encounter [facility] Diagnosis Melanocytic nevus of trunk Benign neoplasm of skin of trunk, except scrotum Other atopic dermatitis Seborrheic keratosis History of basal cell carcinoma Personal history of other malignant neoplasm of skin Neoplasm of unspecified behavior of bone, soft tissue, and skin documented in this encounter [facility] Healthcare[facility] note* Diagnosis Prostate cancer (CMS-HCC)- Primary Malignant neoplasm of prostate documented in this encounter [facility] Diagnosis Onset Date Resolution [...] Wellness examination noneactive March 10, 2025 2:37pm [facility] Work Phone: [employer] general Narrative - Reported* Type Description Date [...] COLONOSCOPY 2021 Hospitalization History SEE SURGICAL HX [facility] Other InstructionsNot on filedocumented in this encounter [facility] filed[facility]ed in this encounter [facility] filedocumented in this encounter [facility] No data available for this section [facility] Summary Purpose Family History Relationship Condition Age at Onset Recorded Date/T carmelita father Malignant neoplasm of bone Unknown Malignant neoplasm of prostate Unknown mother Atrial fibrillation Unknown father Malignant neoplasm Unknown Unknown mother Heart disease Unknown brother Malignant neoplasm Unknown Advance Directives Documents on File Type Date Recorded Patient Mail Service Coordinator Expl anation Living Will 12/29/2019 1:14 PM [...] section and content) DATE CREATED AUTHOR 05/08/2022 [facility] DATE CREATED AUTHOR AUTHOR'S ORGANIZ ATION 04/05/2023 [facility] DATE CREATED AUTHOR AUTHOR'S ORGANIZ ATION 03/07/2024 [facility] DATE CREATED AUTHOR AUTHOR'S ORGANIZ ATION 12/12/2024 [facility] dical Specialists EPIC REASON FOR VISIT (unrecogniz ed section and content) Reason Comments Skin Check Reason Comments Skin Check Follow-up Patient Care team informatio n (unrecognized section and content) Shipper Receiver Relationship Specialty Start [place] [address] [place], [place] [id number] PCP - General Internal Medicine 09/10/19 Shipper Receiver Relationship Specialty Start Date End Date Cb Guerrero DO [address] [place], [place] [id number] PCP - General Internal Medicine 09/10/19 Shipper Receiver Relationship Specialty Start Date End Date Cb Guerrero MD [address] [place] [address] PCP - General Internal Medicine 12/25/23 Shipper Receiver Relationship Specialty Start Date End Date Cb Guerrero MD [address] [place] [address] PCP - General Internal Medicine 12/25/23 Shipper Receiver Relationship Specialty [place] [address] [place] [address] PCP - General Internal Medicine 09/10/19 Shipper Receiver Relationship Specialty Start Date End Date bC Guerrero DO [address] [place] [address] PCP - General Internal Medicine 09/10/19 Team [...] BE BASED ON THE PRIMARY CLINICAL RECORDS. [employer] [facility]. provides no warranty or guarantee of the accuracy or completeness of information in this document.
--- OUTSIDE RECORDS SUMMARY | 2025-04-27 07:26 | XMS_ITS | Encounter Summary ---
Author Organization [facility] Address [address] [facility] [place] [address] Care Team Providers Care Tool Designer Name Role Phone Cb Guerrero DO Unavailable [phone] Cb Guerrero DO Primary Care Provider [phone] Encounter Details Date Type Department Care Team (Late st Contact Info) Description 12/24/2023 Abstract [facility] [address] [place] [address] Antonietta Garcia NP Social History Tobacco Use Types Packs/Day Years Used Date Smoking Tobacco: Never Sex and Gender Information Value Date Recorded Sex Assigned at Male 03/23/2023 3:48 PM EDT Legal Sex Male 6:57 PM EDT Gender Identity Male 03/23/2023 3:48 PM EDT Sexual Orientation Straight 03/23/2023 3: 48 PM EDT documented as of this encounter Plan of Treatment Upcoming Encounters Date Type Department Care Team (Late st Contact Info) Description 12/09/2025 3:20 PM EST Office Visit [facility] [address] [place] [phone] Blanca Sánchez, SOFTWARE QUALITY TESTER-SUPERVISOR [employer] [address] [place] [address] documented as of this encounter Visit Diagnoses Not on filedocumented in this encounter Care Teams Tool Designer Relationship Specialty Start Date End Date Cb Guerrero DO PCP - General Internal Medicine 12/25/23 Cb Guerrero DO Referring Physician Internal Medicine 12/25/23 12/25/23 documented as of this encounter
--- OUTSIDE RECORDS SUMMARY | 2025-04-27 07:26 | XMS_ITS | Clinical Summary ---
Author Organization [employer] Address [facility][id number] [address] [place] [address] Care Team Providers Care Infrastructure Technician Name Role Phone CesarCb Vidal VELARDE Primary Care Provider [phone] Allergies No known active allergies Medications rosuvastatin (CRESTOR) 20 mg tablet Take 1 tablet (20 mg total) by mouth nightly. 05/28/2022 Active ALPRAZolam (XANAX) 0.25 mg tablet Take 1 tablet (0.25 mg total) by mouth every 8 (eight) hours as needed. 05/01/2022 Active Active Problems Problem Noted Date Diagnosed Date Erectile dysfunction after radical prostatectomy 01/15/2023 Overview (07/30/2023): ==== 07/30/2023 ==== patient does have return of sexual function. Without oral medications. Excellent finding. ==== 01/15/2023 ==== still has erections. However just not quite yet suitable for intercourse. Has morning erections as well. We discussed daily Cialis. Prescription written. Denies nitrate use. Prostate cancer 10/09/2019 Overview (07/30/2023): ==== 07/30/2023 ==== PSA undetectable I reviewed on the patient's phone. ==== 01/15/2023 ==== excellent urinary control. PSA undetectable. Excellent findings. Continue monitor. PSA 6 months ==== 07/18/2022 ==== doing very well. Very minimal leakage. Still good erectile function. PSA is less than 0.13. He went to a different lab. ==== 04/25/2021 ==== outstanding urinary. Really does not require any pads. PSA 0.01. Excellent erections on his own. Stable. Continue monitor. PSA 4 months ==== 09/05/2020 ==== stable. PSA 0.01. Plan: PSA 3-4 months return clinic ==== 06/01/2020 ==== excellent urinary control. Excellent return of erections. PSA undetectable. Plan PSA 3 months ==== 12/25/2019 ==== ##### status post daVinci prostatectomy bilateral nerve sparing bilateral pelvic lymph node dissection. Final pathology Marleny 3 + 4 equal 7. Bilateral disease. 20% prostate involved. No evidence of any extra prostatic extension. Margins negative. Nine lymph nodes negative. ==== 10/09/2019 ==== HIghest Marleny Grade: 3+4=7 (70% of core Right base) # of cores Positive: 4:6 Laterality: bilateral ---right side with marleny 7 Patient's PSA is: 4.3 Prostate Volume is: 14.3cc PSA density is: 0.29 Clinical stage is: cT1c NCCN clinical risk group is: intermediate risk Based on social security life tables patient is predicted life expectancy is: 28.84 years Baseline urinary function is: no problems Baseline sexual function is: good--although he and do not have intercourse for many years and they are not active together Comorbidities: none Assessment & Plan (01/04/2022 10:51 AM EST): PSA today. PSA 6 months return clinic. Regarding urination we discussed potential [facility]ich[facility] bladder solution. Three isolated the evening. He is going to try some fluid restriction may be modified diet. Will reassess at next visit Assessment & Plan (01/11/2021 3:02 PM EDT): PSA stable 0.01. Good number for the patient. Continue monitor. PSA 3-4 months. Assessment & Plan (02/11/2020 12:09 PM EDT): PSA undetectable. Urinary control is improving months. PSA 3 months return clinic Assessment & Plan (12/25/2019 10:28 AM EST): Void trial today. Return to clinic 6 weeks with PSA. Patient to finish out his Lovenox. Understands should he go into retention that he must return to [facility] and have Urology replace Brown. Work restrictions and activity restrictions discussed with pt and Assessment & Plan (10/09/2019 10:15 AM EST): I had the opportunity to sit down today and discuss with the patient the risks, benefits, goals and alternatives of a da Arlin robotic laparoscopic radical retropubic prostatectomy. We discussed that the da Arlin approach offers benefits over the classic open radical prostatectomy consisting of better cosmetic result, less blood loss, shorter catheter time, less requirement for pain medication and quicker time to return to full activity. I discussed with the patient that typically the hospital stay will be overnight. The drain typically comes out the following day. The Brown catheter is typically removed in one week. I discussed that the patient needs to refrain while recuperating from any heavy lifting or straining over 5-10 pounds for 6 weeks. We discussed that there will be no restriction on his diet and that in the first few days after surgery I would advise small frequent meals. He understands that he may not have a bowel movement for 3 or 4 days after surgery. I discussed with the patient major risk factors associated with the prostatectomy including urinary incontinence and erectile dysfunction. Severe urinary incontinence is quoted as 1-2% and stress urinary incontinence to varying other degrees can be encountered. I discussed with the patient the normal anticipated progression of return to urinary control after the catheter is removed. I discussed that most patient's will require a pad for 6-12 weeks after surgery and at times longer or indefinitely. I also discussed in great detail the possibility of erectile dysfunction. We did discuss, that we would consider doing a nerve sparing procedure although the patient is not sexually active with his masturbation is an option for him. We will consider a nerve sparing procedure and our program for penile rehabilitation for sexual function starting at 6 weeks postoperatively with the use of PDE 5 inhibitors and a vacuum constriction device. Will see what the MRI shows--may help with surgical planning I also discussed with the patient the anticipated risks of any major surgical procedure requiring anesthesia listed below. The procedure and risks including bleeding, infection, need for transfusion and possible conversion of any initial laparoscopic approach to open procedure, and other anesthetic risks including MN, CVA, and PE; lymphedema or lymphocele formation, permanent urinary incontinence, permanent impotence, bladder neck contracture formation, injury to surrounding abdominal pelvic structures including but not limited to vascular structures and the rectum with possible need for colostomy, significant chance of positive margins and possibility of persistent or recurrent prostate cancer and need for adjuvant treatment were discussed. Postoperative activity restrictions, expected course, and care were reviewed. Questions and alternatives were discussed including radiation therapy--external beam/brachytherapy, hormonal therapy, cryoablation, active surveillance, watchful waiting, and non-intervention. At patient's request, we've offered to schedule the procedure. Patient and wish to proceed with daVinci prostatectomy Immunizations Immunization Administration Dates Next Due Influenza, Unspecified 10/05/2019 Family History Medical History Relation Name Comments Cancer Brother Prostate cancer Father Diabetes Mother Prostate cancer Paternal Grandfather Anesthesia problems Neg Hx Relation Name Status Comments Brother Alive Father Maternal Grandfather Maternal Grandmother Mother Alive Paternal Grandfather Paternal Grandmother Social History Tobacco Use Types Packs/Day Years Used Date Smoking Tobacco: Never Smokeless Tobacco: Never Tobacco Cessation:Counseling Given: Not Answered Alcohol Use Standard Drinks/Week Comments Yes 21 (1 standard drink = 0.6 oz pu re alcohol) Childcare Answer Date Recorded Childcare Unknown 09/10/2019 Employment Answer Date Recorded Employment Unknown 09/10/2019 Hunger Screening Answer Date Recorded Within the past 12 months we worried whether our food would run out before we got money to buy more. Never True 07/30/2023 Within the past 12 months th e food we bought just didn't last and we didn't have money to get more. Never True 07/30/2023 Purpose - Life Answer Date Recorded Purpose and direction in life Unknown Sex and Gender Information Value Date Recorded Sex Assigned at Male 10/13/2019 2:42 PM EST Legal Sex Male 10:38 AM EST Gender Identity Male 10/13/2019 2:42 PM EST Sexual Orientation Straight 10/13/2019 2: 42 PM EST Last Filed Vital Signs Vital Sign Reading Time Taken Comments Blood Pressure 135/79 07/30/2023 2:55 PM EDT Pulse 77 07/30/2023 2:55 PM EDT Temperature 36.6 C (97.9 F) 12/16/2019 12:12 PM EST Respiratory Rate 18 01/11/2021 2:49 PM EDT Oxygen Saturation 94% 12/16/2019 12:12 PM EST Inhaled Oxygen Concentration - - Weight 104.3 kg (230 lb) 07/30/2023 2:55 PM EDT Height 170.2 cm (5' 7 ) 07/30/2023 2:55 PM EDT Body Mass Index 36.02 07/30/2023 2:55 PM EDT Plan of Treatment Upcoming Encounters Date Type Department Care Team (Late st Contact Info) Description 05/13/2025 2:15 PM EDT Office Visit [facility] [address] [place] [phone] Bryan Handley MD [address] [place] [phone] Health Maintenance Due Date Last Done Comments Depression Screening 1980 DTaP,Tdap and Td Vaccines (1 - Tdap) 1987 COVID-19 Vaccine (4 2023-2 5 season) 2024 10/09/2021, 02/07/2021, 01/16/2021 Adult BMI Screening 07/30/2024 07/30/2023 Tobacco Screening 07/30/2024 07/30/2023 Influenza Vaccine 06/28/2025 08/30/2023, , 08/11/2021, Additional history exists Zoster (Shingles) Vaccine Completed 01/24/2023, Goals Goal Patient Goal Type Associated Problems Recent Progress Patient-Stated? Author discharge home General Yes Jackie Harris, RN Note: Evaluation of progress towards goal: patient plans to discharge home with spouse and home care Medical Devices Not on file Insurance [employer] Advance Directives Documents on File Type Date Recorded Patient Blood Tester Fowl Expl anation Living Will 12/29/2019 1:14 PM * Full Code (Latest Code Status on File) Date Activated Date Inactivated Comments 12/16/2019 6:10 AM 12/16/2019 6:11 PM Care Teams Infrastructure Technician Relationship Specialty Start Date End Date Cb Guerrero DO [address] [place] [address] PCP - General Internal Medicine 09/10/19
--- OUTSIDE RECORDS SUMMARY | 2025-04-27 07:26 | XMS_ITS | Encounter Summary ---
Author Organization [employer] Address [facility] [place]-[id number] [address] [place] [address] Care Team Providers Care Case Repairer Name Role Phone Cb Guerrero DO Primary Care Provider [phone] Encounter Details Date Type Department Care Team (Late st Contact Info) Description 01/11/2023 Orders Only [facility] [address] [place] [phone] Milana Parada Prostate cancer ([facility]) Social History Tobacco Use Types Packs/Day Years Used Date Smoking Tobacco: Never Smokeless Tobacco: Never Alcohol Use Standard Drinks/Week Comments Yes 21 (1 standard drink = 0.6 oz pu re alcohol) Childcare Answer Date Recorded Childcare Unknown 09/10/2019 Employment Answer Date Recorded Employment Unknown 09/10/2019 Purpose - Life Answer Date Recorded Purpose and direction in life Unknown Sex and Gender Information Value Date Recorded Sex Assigned at Male 10/13/2019 2:42 PM EST Legal Sex Male 10:38 AM EST Gender Identity Male 10/13/2019 2:42 PM EST Sexual Orientation Straight 10/13/2019 2: 42 PM EST documented as of this encounter Plan of Treatment Upcoming Encounters Date Type Department Care Team (Late st Contact Info) Description 05/13/2025 2:15 PM EDT Office Visit [facility] [address] [place] [phone] Bryan Handley MD [address] [place] [phone] documented as of this encounter Goals Goal Patient Goal Type Associated Problems Recent Progress Patient-Stated? Author discharge home General Yes Jackie Harris RN Note: Evaluation of progress towards goal: patient plans to discharge home with spouse and home care documented as of this encounter Procedures Procedure Name Priority Date/Time Associated Diagnosis Comments PROSTATIC SPECIFIC ANTIGEN, DIAGNOSTIC Routine 01/11/2023 Prostate cancer ([facility]) documented in this encounter Results * Prostatic specific antigen, diagnostic (01/11/2023) Psa <0.13 SUNQUEST 01/11/2023 us Bryan Handley MD LAB BLOOD ORDERABLES Final R esult SUNQUEST documented in this encounter Visit Diagnoses Diagnosis Prostate cancer ([facility]) Malignant neoplasm of prostate documented in this encounter Care Teams Case Repairer Relationship Specialty Start Date End Date Cb Guerrero DO [address] [place] [address] PCP - General Internal Medicine 09/10/19 documented as of this encounter
--- OUTSIDE RECORDS SUMMARY | 2025-04-27 07:26 | XMS_ITS | Encounter Summary ---
Author Organization [employer] Address [facility] [place]-[id number] [address] [place] [address] Care Team Providers Care Sales And Service Representative Name Role Phone Cb Guerrero DO Primary Care Provider [phone] Encounter Details Date Type Department Care Team (Late Contact Info) Description 07/16/2022 Orders Only [facility] [address] [place] [phone] Bryan Handley MD [address] [place] [phone] Prostate cancer ([facility]) Social History Tobacco Use Types Packs/Day [...] Orientation Straight 10/13/2019 2: 42 PM EST COVID-19 Exposure Response Date Recorded In the last month, have you been in contact with someone who was confirmed or suspected to have Coronavirus / COVID-19? No / Unsure 07/18/2022 7:58 AM EDT documented as of this encounter Plan of Treatment Upcoming Encounters Date Type Department Care Team (Late Contact Info) Description 05/13/2025 2:15 PM EDT Office Visit [facility] [address] [place] [phone] Bryan Handley MD [address] [place] [phone] documented as of this encounter Goals Goal Patient Goal Type Associated Problems Recent Progress Patient-Stated? Author discharge home General Yes Jackie Harris, RN Note: Evaluation of progress towards goal: patient plans to discharge home with spouse and home care documented as of this encounter Procedures Procedure Name Priority Date/Time Associated Diagnosis Comments PROSTATIC SPECIFIC ANTIGEN, DIAGNOSTIC Routine 07/13/2022 Prostate cancer ([facility]) documented in this encounter Results * Prostatic specific antigen, diagnostic (07/13/2022) Psa <0.13 MANUALLY TRANSCRIBED RESULTS Comment:[facility] 07/13/2022 us Bryan Handley MD LAB BLOOD ORDERABLES Final R esult MANUALLY TRANSCRIBED RESULTS documented in this encounter Visit Diagnoses Diagnosis Prostate cancer ([facility]) Malignant neoplasm of prostate documented in this encounter Care Teams Sales And Service Representative Relationship Specialty Start Date End Date Cb Guerrero DO [address] [place] [address] PCP - General Internal Medicine 09/10/19 documented as of this encounter
--- OUTSIDE RECORDS SUMMARY | 2025-04-27 07:26 | XMS_ITS | Clinical Summary ---
Author Organization [facility] Address [address] [facility] [place] [address] Care Team Providers Care Application Lead Name Role Phone CesarCb Vidal VELARDE Primary Care Provider [phone] Allergies No known active allergies Medications rosuvastatin (Crestor) 5 MG tablet Rosuvastatin Calcium Active tacrolimus (Protopic) 0.1 % ointmentIndicat ions:Other atopic dermatitis Apply 0.5 g to the hands twice a day when flared, 30 day supply 30 g 11 5 Active Active Problems No known active problems Family History Medical History Relation Name Comments Cancer Father Atrial fibrillation Mother Diabetes Mother Cancer Other Multiple myeloma Neg Hx Relation Name Status Comments Father Mother Alive Other Social History Tobacco Use Types Packs/Day Years Used Date Smoking Tobacco: Never Smokeless Tobacco: Never Tobacco Cessation:Counseling Given: Not Answered Alcohol Use Standard Drinks/Week Comments Yes 0 (1 standard drink = 0.6 oz pur e alcohol) Sex and Gender Information Value Date Recorded Sex Assigned at Male 03/23/2023 3:48 PM EDT Legal Sex Male 6:57 PM EDT Gender Identity Male 03/23/2023 3:48 PM EDT Sexual Orientation Straight 03/23/2023 3 :48 PM EDT Last Filed Vital Signs Vital Sign Reading Time Taken Comments Blood Pressure 122/68 01/24/2023 12:00 PM EDT Pulse - - Temperature - - Respiratory Rate - - Oxygen Saturation - - Inhaled Oxygen Concentration - - Weight 103 kg (226 lb) 02/11/2024 8:52 AM EDT Height 172.7 cm (5' 8 ) 02/11/2024 8:52 AM EDT Body Mass Index 34.36 02/11/2024 8:52 AM EDT Plan of Treatment Upcoming Encounters Date Type Department Care Team (Late st Contact Info) Description 12/09/2025 3:20 PM EST Office Visit [facility] [address] [place] [phone] MaryanaBlanca barragan, SPEEDER HAND-CREDIT REPORTER [address] [place] [address] Health Maintenance Due Date Last Done Comments CT Colonography 1968 Colonoscopy 1968 Colorectal Cancer Screening 1968 FIT-DNA 1968 FIT 1968 FOBT 1968 Sigmoidoscopy 1968 Influenza Vaccine Completed 09/10/2024, 09/13/2020, 10/05/2019 Insurance AET[employer] Care Teams Application Lead Relationship Specialty Start Date End Date Cb Guerrero DO PCP - General Internal Medicine 12/25/23
--- OUTSIDE RECORDS SUMMARY | 2025-04-27 07:26 | XMS_ITS | Encounter Summary ---
Author Organization [employer] Address [facility] [id number] [address] [place] [address] Care Team Providers Care Secretary Administrative Assistant Name Role Phone Cb Guerrero DO Primary Care Provider [phone] Encounter Details Date Type Department Care Team (Late Contact Info) Description 07/30/2021 Telephone [facility] [address] [place] [phone] Bryan Handley MD [address] [place] [phone] Social History Tobacco Use Types Packs/Day Years [...] EDT Office Visit [facility] [address] [place] [phone] Bryan Handley MD [address] [place] [phone] documented as of this encounter Goals Goal Patient Goal Type Associated Problems Recent Progress Patient-Stated? Author discharge home General Yes Jackie Harris, RN Note: Evaluation of progress towards goal: patient plans to discharge home with spouse and home care documented as of this encounter Visit Diagnoses Not on filedocumented in this encounter Care Teams Secretary Administrative Assistant Relationship Specialty Start Date End Date Cb Guerrero DO [address] [place] [address] PCP - General Internal Medicine 09/10/19 documented as of this encounter
--- OUTSIDE RECORDS SUMMARY | 2025-04-27 07:26 | XMS_ITS | Encounter Summary ---
Author Organization [employer] Address [id number] [address] [place] [address] Care Team Providers Care Network Architect Name Role Phone Cb Guerrero DO Primary Care Provider [phone] Encounter Details Date Type Department Care Team (Late Contact Info) Description 04/07/2024 Orders Only [facility] [address] [place] [phone] External, Scanning Provider Social History Tobacco Use Types Packs/Day Years [...] EDT Office Visit [facility] [address] [place] [phone] Bryan Handley MD [address] [place] [address] documented as of this encounter Goals Goal Patient Goal Type Associated Problems Recent Progress Patient-Stated? Author discharge home General Yes Jackie Harris RN Note: Evaluation of progress towards goal: patient plans to discharge home with spouse and home care documented as of this encounter Procedures Procedure Name Priority Date/Time Associated Diagnosis Comments PROSTATIC SPECIFIC ANTIGEN, DIAGNOSTIC Routine 04/06/2024 3:35 PM EDT documented in this encounter Results * Prostatic specific antigen, diagnostic (04/06/2024 3:35 PM EDT) Psa <0.13 MANUALLY TRANSCRIBED RESULTS us Scanning Provider External LAB BLOOD ORDERABLES Edited Result - Final MANUALLY TRANSCRIBED RESULTS documented in this encounter Visit Diagnoses Not on filedocumented in this encounter Care Teams Network Architect Relationship Specialty Start Date End Date Cb Guerrero DO [address] [place] [address] PCP - General Internal Medicine 09/10/19 documented as of this encounter
--- OUTSIDE RECORDS SUMMARY | 2025-04-27 07:26 | XMS_ITS | Encounter Summary ---
Author Organization [employer] Address [facility] [id number] [address] [place] [address] Care Team Providers Care Bond Runner Name Role Phone Cb Guerrero DO Primary Care Provider [phone] Encounter Details Date Type Department Care Team (Late st Contact Info) Description 08/31/2024 Orders Only [facility] [address] [place] [phone] Milana Parada Prostate cancer ([facility]) Social History Tobacco Use Types Packs/Day Years [...] Office Visit [facility] [address] [place] [phone] Bryan Handley MD [facility] [place] [address] documented as of this encounter Goals Goal Patient Goal Type Associated Problems Recent Progress Patient-Stated? Author discharge home General Yes Jackie Harris, RN Note: Evaluation of progress towards goal: patient plans to discharge home with spouse and home care documented as of this encounter Procedures Procedure Name Priority Date/Time Associated Diagnosis Comments PROSTATIC SPECIFIC ANTIGEN, DIAGNOSTIC Routine 08/29/2024 Prostate cancer ([facility]) documented in this encounter Results * Prostatic specific antigen, diagnostic (08/29/2024) Psa <0.13 SUNQUEST 08/29/2024 us Bryan Handley MD LAB BLOOD ORDERABLES Final R esult SUNTrue Fit documented in this encounter Visit Diagnoses Diagnosis Prostate cancer ([facility]) Malignant neoplasm of prostate documented in this encounter Care Teams Bond Runner Relationship Specialty Start Date End Date Cb Guerrero DO [address] [place] [phone] PCP - General Internal Medicine 09/10/19 documented as of this encounter
[2025-04-27 11:09] LABS: Prostate Specific Antigen Dx <0.13 ng/mL (<=4.00)
== END 2025-04-27 07:23 | disposition home or self-care (01) ==
LOC: LAB 07:24
PROVIDERS: PCP Internal Medicine
DX: C61 Malignant neoplasm of prostate (principal)
CPT/HCPCS: 36415; 84153